=== PATIENT | female | born 1940 | race Caucasian/White ===

== ENCOUNTER → 2017-05-31 | Outpatient (CLI) | payer MEDICARE, BC ==
--- NOTE | 2017-05-31 14:33 | BD ---
EXAMINATION TYPE: MG DEXA axial skeleton. DATE OF EXAM: 05/31/2017 COMPARISON: NONE CLINICAL HISTORY: Postmenopausal screening. Height: 65 Weight: 195.4 FRAX RISK QUESTIONS: Alcohol (3 or more units per day): NO Family History (Parent hip fracture): NO Glucocorticoids (More than 3mos): NO (Ex: prednisone, prednisolone, methylprednisolone, dexamethasone, and hydrocortisone). History of Fracture in Adulthood: YES Secondary Osteoporosis: 1. Type 1 Diabetes: NO 2. Hyperthyroidism: NO 3. Menopause before 45: NO 4. Malnutrition: NO 5. Chronic liver disease: NO Rheumatoid Arthritis: NO Current Tobacco Use: YES RISK FACTORS HISTORY OF: Hip Fracture (Right/Left): NO Spine Fracture: NO History of Wrist Fracture: YES/ RIGHT Surgery to Spine/Hip(right/left)/Wrist (right/left): NO Family History of Osteoporosis: NO Active: YES Diet low in dairy products/other sources of calcium: YES Postmenopausal woman: AROUND AGE 48 Lost more than 2 inches in height since high school: NO Frequent falls: NO Poor Health: NO Adrenal Insufficiency: NO MEDICATIONS: DIABETIC MEDS, LIPITOR Thyroid Medications: LEVATHYROXINE How Lon YEARS Additional History: EXAM MEASUREMENTS: Bone mineral densitometry was performed using the [employer] System. Bone mineral density as measured about the Lumbar spine is: ----- L1-L4(G/cm2): 0.961 T Score Values are as follows: ----- L2: -4.0 ----- L3: -1.2 ----- L4: 0.3 ----- L1-L4: -1.8 Bone mineral density has: 24.1 % since study of: 08.07.2001 Bone mineral density about the R hip (g/cm2): 0.815 Bone mineral density about the L hip (g/cm2): 0.754 T Score values are as follows: -----R Neck: --1.6 -----L Neck: -2.0 -----R Total: -1.6 -----L Total: -1.4 Bone mineral density has: DECREASED -11.9 % since study of: 08.07.2001 IMPRESSION: Osteopenia (T Score between -2.5 and -1 as noted by T score values with regards to both hips. There is slightly increased risk of fracture and the patient may be considered for treatment. Re-Screen 2-5 years. NOTE: T-SCORE=SD OF THE YOUNG ADULT MEAN.
--- NOTE | 2017-06-03 12:10 | MM ---
Reason for exam: screening (asymptomatic). Last mammogram was performed 1 year and 4 months ago. History: Patient is postmenopausal and has history of other cancer at age 65. Benign left mammotome panel of the left breast, November 16, 2013. Excisional biopsy of the left breast, July 24, 2010. Physical Findings: A clinical breast exam by your physician is recommended on an annual basis and results should be correlated with mammographic findings. MG 3D Screening Mammo W/Cad Bilateral CC and MLO view(s) were taken. Prior study comparison: January 19, 2016, bilateral MG screening mammo w CAD. November 24, 2014, bilateral MG screening mammo w CAD. The breast tissue is heterogeneously dense. This may lower the sensitivity of mammography. Finding: There are typically benign calcifications in both breasts. There is no discrete abnormality. No significant changes in finding since January 19, 2016 and November 24, 2014. ASSESSMENT: Benign, BI-RAD 2 RECOMMENDATION: Routine screening mammogram of both breasts in 1 year.
== END | disposition home or self-care (01) ==
LOC: RADMAMWWP 09:04
PROVIDERS: ATTEND Internal Medicine Geriatric Medicine
DX: Z12.31 Encounter for screening mammogram for malignant neoplasm of breast (principal); M85.852 Other specified disorders of bone density and structure, left thigh; M85.851 Other specified disorders of bone density and structure, right thigh
CPT/HCPCS: 77080; 77063; G0202

== ENCOUNTER → 2018-09-01 | Outpatient (CLI) | payer MEDICARE, BC ==
--- NOTE | 2018-09-03 11:20 | MM ---
Reason for exam: screening (asymptomatic). Last mammogram was performed 1 year and 3 months ago. History: Patient is postmenopausal and has history of other cancer at age 65. Benign left mammotome panel of the left breast, November 16, 2013. Excisional biopsy of the left breast, July 24, 2010. Physical Findings: A clinical breast exam by your physician is recommended on an annual basis and results should be correlated with mammographic findings. MG 3D Screening Mammo W/Cad Bilateral CC and MLO view(s) were taken. Prior study comparison: May 31, 2017, bilateral MG 3d screening mammo w/cad. January 19, 2016, bilateral MG screening mammo w CAD. The breast tissue is heterogeneously dense. This may lower the sensitivity of mammography. Benign calcifications. No suspicious abnormality. Post biopsy change with biopsy marker on the left. No significant changes when compared with prior studies. ASSESSMENT: Benign, BI-RAD 2 RECOMMENDATION: Routine screening mammogram of both breasts in 1 year.
== END | disposition home or self-care (01) ==
LOC: RADMAMWWP 07:14
PROVIDERS: ATTEND Internal Medicine Geriatric Medicine
DX: Z12.31 Encounter for screening mammogram for malignant neoplasm of breast (principal)
CPT/HCPCS: 77063; 77067

== ENCOUNTER → 2020-08-23 | Outpatient (CLI) | payer MEDICARE, BC ==
--- NOTE | 2020-08-23 13:00 | ECHOF ---
Referral Reason:R60.9 EDEMA MEASUREMENTS -------- HEIGHT: 165.1 cm WEIGHT: 79.4 kg BP: IVSd: 1.3 cm (0.6 - 1.1) LVIDd: 2.8 cm (3.9 - 5.3) LVPWd: 1.1 cm (0.6 - 1.1) IVSs: 1.9 cm LVIDs: 2.0 cm LVPWs: 1.7 cm LAESV Index (A-L): 24.15 ml/m Ao Diam: 3.2 cm (2.0 - 3.7) AV Cusp: 1.9 cm (1.5 - 2.6) MV E Torsten: 0.63 m/s MV DecT: 197 ms MV A Torsten: 0.99 m/s MV E/A Ratio: 0.64 AV maxP.93 mmHg AV meanP.69 mmHg RAP: 5.00 mmHg RVSP: 29.16 mmHg FINDINGS -------- Sinus rhythm. This was a technically difficult study with suboptimal parasternal views. The left ventricular size is normal. There is mild concentric left ventricular hypertrophy. Overa ll left ventricular systolic function is normal with, an EF between 55 - 60 %. The diastolic fillin g pattern is normal for the age of the patient 11.07. The right ventricle is normal in size. Normal LA size by volume 22+/-6 ml/m2. The right atrial size is normal. Interatrial and interventricular septum intact. There is no evidence of aortic regurgitation. There is mild aortic stenosis present. Peak/mean gr adient across the Aortic Valve is 16.93mmHg / 9.69mmHg. No mitral regurgitation. Mild tricuspid regurgitation present. There is no evidence of pulmonary hypertension. The right v entricular systolic pressure, as measured by Doppler, is 29.16mmHg. There is no pulmonic regurgitation present. The aortic root size is normal. IVC Not well visulized. There is no pericardial effusion. CONCLUSIONS -------- 1. The left ventricular size is normal. 2. There is mild concentric left ventricular hypertrophy. 3. Overall left ventricular systolic function is normal with, an EF between 55 - 60 %. 4. There is mild aortic stenosis present. 5. Peak/mean gradient across the Aortic Valve is 16.93mmHg / 9.69mmHg. 6. Mild tricuspid regurgitation present. METAL SORTER: Sana Quezada RDCS
== END | disposition home or self-care (01) ==
LOC: RADECHMAIN 10:23
PROVIDERS: ATTEND Nurse Practitioner Family
DX: I51.7 Cardiomegaly (principal)
CPT/HCPCS: 93306

== ENCOUNTER → 2021-05-15 | Outpatient (CLI) | payer MEDICARE, BC ==
--- NOTE | 2021-05-16 13:39 | MM ---
Reason for exam: screening (asymptomatic). Last mammogram was performed 2 years and 8 months ago. History: Patient is postmenopausal and has history of other cancer at age 65. Benign left mammotome panel of the left breast, November 16, 2013. Excisional biopsy of the left breast, July 24, 2010. Physical Findings: A clinical breast exam by your physician is recommended on an annual basis and results should be correlated with mammographic findings. MG 3D Screening Mammo W/Cad Bilateral CC and MLO view(s) were taken. Prior study comparison: September 01, 2018, bilateral MG 3d screening mammo w/cad. May 31, 2017, bilateral MG 3d screening mammo w/cad. January 19, 2016, bilateral MG screening mammo w CAD. There are scattered fibroglandular densities. No significant changes when compared with prior studies. ASSESSMENT: Benign, BI-RAD 2 RECOMMENDATION: Routine screening mammogram of both breasts in 1 year.
== END | disposition home or self-care (01) ==
LOC: RADMAMWWP 09:57
PROVIDERS: ATTEND Internal Medicine Geriatric Medicine
DX: Z12.31 Encounter for screening mammogram for malignant neoplasm of breast (principal)
CPT/HCPCS: 77063; 77067

== ENCOUNTER 2024-08-20 17:33 | Observation (INO) | payer MEDICARE, BC ==
[2024-08-20 18:04] LABS: Basophils % (A) 0 %; Eosinophils # (A) 0.3 k/uL (0-0.7); Eosinophils % (A) 3 %; HGB 13.3 gm/dL (11.4-16.0); Hypochromasia Slight; Lymphocytes # (A) 0.6 k/uL (1.0-4.8); Lymphocytes % (A) 5 %; MCH 31.2 pg (25.0-35.0); MCHC 31.6 g/dL (31.0-37.0); MCV 98.8 fL (80.0-100.0); Monocytes # (A) 0.6 k/uL (0-1.0); Monocytes % (A) 5 %; Neutrophils # (A) 9.8 k/uL (1.3-7.7); Neutrophils % (A) 86 %; Platelet Count 314 k/uL (150-450); RBC 4.25 m/uL (3.80-5.40); WBC 11.3 k/uL (3.8-10.6)
[2024-08-20 18:16] LABS: ALT 16 U/L (4-34); AST 21 U/L (14-36); African American GFR (CKD) >90 (>60 ml/min/1.73 sqM); Albumin 4.2 g/dL (3.5-5.0); Alkaline Phosphatase 99 U/L (38-126); Amylase 54 U/L (30-110); Anion Gap 7 mmol/L; Blood Urea Nitrogen 26 mg/dL (7-17); Carbon Dioxide 28 mmol/L (22-30); Chloride 103 mmol/L (98-107); Glucose 160 mg/dL (74-99); Lipase 54 U/L (23-300); Non-African American GFR(CKD) 79 (>60 ml/min/1.73 sqM); Potassium 4.2 mmol/L (3.5-5.1); Sodium 138 mmol/L (137-145); Total Bilirubin 0.4 mg/dL (0.2-1.3); Total Protein 7.4 g/dL (6.3-8.2)
--- NOTE | 2024-08-20 19:09 | ED ---
General Adult HPI - General Chief complaint: Nausea/Vomiting/Diarrhea Stated complaint: Diarrhea Time Seen by Provider: 08/20/24 18:27 Source: patient Mode of arrival: EMS Limitations: no limitations - History of Present Illness Initial comments: Patient is an 84-year-old female presenting today for diarrhea. Coming from adult foster care with her daughter. Has had about 4 episodes of watery stools today. She denies any abdominal pain, nausea, vomiting, black or bloody stools. Denies any chest pain or shortness of breath, denies cough. No prior abdominal surgeries. - Related Data Home Medications Medication Instructions Recorded Confirmed Aspirin EC [Ecotrin Low Dose] 81 mg PO DAILY@0800 08/21/24 08/21/24 Benzonatate [Tessalon Perles] 100 mg PO BID PRN 08/21/24 08/21/24 Calcium Gluconate 50 mg PO DAILY@0800 08/21/24 08/21/24 Cyanocobalamin (Vitamin B-12) 1,000 mcg PO DAILY@0800 08/21/24 08/21/24 [Vitamin B-12] Empagliflozin [Jardiance] 10 mg PO DAILY@0800 08/21/24 08/21/24 Levothyroxine Sodium [Synthroid] 50 mcg PO DAILY@0800 08/21/24 08/21/24 Loperamide [Imodium] 2 - 4 mg PO QID PRN 08/21/24 08/21/24 Memantine [Namenda] 5 mg PO BID@0800,2000 08/21/24 08/21/24 Miconazole Nitrate [Desenex] 1 applic TOPICAL BID 08/21/24 08/21/24 QUEtiapine [SEROquel] 25 mg PO HS PRN 08/21/24 08/21/24 metFORMIN HCL 1,000 mg PO BID@0800,1700 08/21/24 08/21/24 Allergies Allergy/AdvReac Type Severity Reaction Status Date / Time No Known Allergies Allergy Verified 08/21/24 13:48 Review of Systems ROS Statement: Those systems with pertinent positive or pertinent negative responses have been documented in the HPI. ROS Other: All systems not noted in ROS Statement are negative. Past Medical History Past Medical History: Dementia, Thyroid Disorder Past Surgical History: Appendectomy, Cholecystectomy, Hysterectomy General Exam - General Exam Comments Initial Comments: PE: CONSTITUTIONAL: No apparent distress, well appearing SKIN: Warm, dry, no jaundice, hives or petechiae EYES: Pupils are equally round, extraocular movements intact without nystagmus, clear conjunctiva, non-icteric sclera HENT: Normocephalic, atraumatic, moist mucus membranes, oropharynx clear without exudates NECK: , Full range of motion, normal appearance PULMONARY: Clear to auscultation without wheezes, rhonchi, or rales, normal excursion, no accessory muscle use and no stridor CARDIOVASCULAR: Regular rate, rhythm, normal S1 and S2. No appreciated murmurs, rubs or gallops. Strong radial pulses with intact distal perfusion. No lower extremity edema GASTROINTESTINAL: Soft, hyperactive bowel sounds throughout, non-tender, non- distended, no palpable masses, no rebound or guarding. No hepatosplenomegaly GENITOURINARY: MUSCULOSKELETAL: Extremities have no gross deformity, no edema, redness, or swelling. No calf swelling NEUROLOGIC:_a/o x 3, GCS 15, normal mentation and speech. Moves all extremities x 4 without motor or sensory deficit PSYCHIATRIC:_normal mood and affect, thought process is clear and linear Limitations: no limitations Course Vital Signs 08/20/24 08/20/24 08/20/24 17:40 18:29 21:18 Temperature 97.5 F L Pulse Rate 87 60 88 Pulse Rate [ Left Supine Pulse Oximetery ] Respiratory 20 18 16 Rate Blood Pressure 120/80 122/64 140/92 Blood Pressure [Left Arm Supine] O2 Sat by Pulse 92 L 94 L 96 Oximetry 08/20/24 08/20/24 08/21/24 23:16 23:37 00:52 Temperature 97.7 F Pulse Rate 96 100 Pulse Rate [ 91 Left Supine Pulse Oximetery ] Respiratory 18 18 18 Rate Blood Pressure 125/89 136/72 Blood Pressure 125/101 [Left Arm Supine] O2 Sat by Pulse 95 97 97 Oximetry 08/21/24 08/21/24 08/21/24 05:42 08:43 13:34 Temperature 97.9 F 97.9 F Pulse Rate 79 85 80 Pulse Rate [ Left Supine Pulse Oximetery ] Respiratory 18 18 18 Rate Blood Pressure 146/79 129/83 131/65 Blood Pressure [Left Arm Supine] O2 Sat by Pulse 94 L 94 L 98 Oximetry Medical Decision Making - Medical Decision Making Was pt. sent in by a medical professional or institution (, [facility], MILL OPERATOR HELPER, urgent care, hospital, or halfway...) When possible be specific @ -No Did you speak to anyone other than the patient for history (EMS, parent, family, police, friend...)? What history was obtained from this source @I spoke with patient's daughter who assisted in providing history Did you review nursing and triage notes (agree or disagree)? Why? @ -I reviewed and agree with nursing and triage notes Were old charts reviewed (outside hosp., previous admission, EMS record, old EKG, old radiological studies, urgent care reports/EKG's, halfway records)? Report findings @ -Medical records reviewed-Last echo was in 2021 with an EF of 55 to 60% Differential Diagnosis (chest pain, altered mental status, abdominal pain women, abdominal pain men, vaginal bleeding, weakness, fever, dyspnea, syncope, headache, dizziness, GI bleed, back pain, seizure, CVA, palpatations, mental health, musculoskeletal)? @ -Differential diagnose edyta broad over top considerations include C. difficile colitis, diverticulitis, colitis, viral gastroenteritis this is not all inclusive list EKG interpreted by me (3pts min.). @ -As above X-rays interpreted by me (1pt min.). @ -None done CT interpreted by me (1pt min.). @ -None done U/S interpreted by me (1pt. min.). @ -None done What testing was considered but not performed or refused? (CT, X-rays, U/S, labs)? Why? @I did consider CT abdomen pelvis however patient's abdominal exam was overall benign without palpable masses or tenderness, patient denies abdominal pain is afebrile What meds were considered but not given or refused? Why? @ -None Did you discuss the management of the patient with other professionals (professionals i.e. [facility] Tse, MILL OPERATOR HELPER, lab, RT, psych nurse, social media project manager, skin piler, teacher, intelligence officer, registered nurse hh case manager)? Give summary @ -No Was smoking cessation discussed for >3mins.? @ -No Was critical care preformed (if so, how long)? @ -No Were there social determinants of health that impacted care today? How? (Homelessness, low income, unemployed, alcoholism, drug addiction, transportation, low edu. Level, literacy, decrease access to med. care, long term, rehab)? @ -No Was there de-escalation of care discussed even if they declined (Discuss DNR or withdrawal of care, Hospice)? @ -No What co-morbidities impacted this encounter? (DM, HTN, Smoking, COPD, CAD, Cancer, CVA, ARF, Chemo, Hep., AIDS, mental health diagnosis, sleep apnea, morbid obesity)? @ -None Was patient admitted / discharged? Hospital course, mention meds given and route, prescriptions, significant lab abnormalities, going to OR and other pertinent info. @ Admission- Patient is a pleasant 84-year-old female presenting today for 1 day of 4-5 episodes of watery stools. Well-appearing on my assessment, ox 92% on room air, otherwise vital signs within acceptable limits on arrival, however on my assessment patient's pulse ox is 98% on room air. Physical exam as above. Discussed with patient and daughter plan for basic labs, fluids, Imodium. If symptoms can be controlled anticipate discharge, if significant lab abnormalities will consider CT abdomen pelvis however I have low suspicion for acute intra-abdominal surgical process or infectious process. On reassessment patient had another loose stool, ordered Lomotil, will obtain C. difficile testing. If diarrhea cannot be controlled will admit. Labs show slight mild leukocytosis with a white blood cell 11.3, urine with trace leukocyte esterase, squamous cells 9, occasional bacteria and rare mucus, this is more likely a contaminated specimen. Patient continued to have diarrhea despite Lomotil and Imodium. Due to patient's age and residence at a adult foster care will plan for admission for chronic diarrhea. Patient agreeable plan of care. Patient does have erythema and discharge of the right eye. No vision changes. Will apply erythrimycin ointment. Patient with [facility], pt accepted for admission. Undiagnosed new problem with uncertain prognosis? @ -No Drug Therapy requiring intensive monitoring for toxicity (Heparin, Nitro, Insulin, Cardizem)? @ -No Were any procedures done? @ -No Diagnosis/symptom? @Diarrhea, bacterial conjunctivitis Acute, or Chronic, or Acute on Chronic? @Acute Uncomplicated (without systemic symptoms) or Complicated (systemic symptoms)? @Uncomplicated Side effects of treatment? @ -No Exacerbation, Progression, or Severe Exacerbation? @ -No Poses a threat to life or bodily function? How? (Chest pain, USA, CT, pneumonia, PE, COPD, DKA, ARF, appy, cholecystitis, CVA, Diverticulitis, Homicidal, Suicidal, threat to staff... and all critical care pts) @ -No - Lab Data Result diagrams: 08/21/24 06:13 08/21/24 06:13 Lab Results 08/20/24 08/20/24 08/20/24 Range/Units 17:46 17:53 17:53 WBC 11.3 H (3.8-10.6) k/uL RBC 4.25 (3.80-5.40) m/uL Hgb 13.3 (11.4-16.0) gm/dL Hct 42.0 (34.0-46.0) % MCV 98.8 (80.0-100.0) fL MCH 31.2 (25.0-35.0) pg MCHC 31.6 (31.0-37.0) g/dL RDW 14.0 (11.5-15.5) % Plt Count 314 (150-450) k/uL MPV 7.0 Neutrophils % 86 % Lymphocytes % 5 % Monocytes % 5 % Eosinophils % 3 % Basophils % 0 % Neutrophils # 9.8 H (1.3-7.7) k/uL Lymphocytes # 0.6 L (1.0-4.8) k/uL Monocytes # 0.6 (0-1.0) k/uL Eosinophils # 0.3 (0-0.7) k/uL Basophils # 0.0 (0-0.2) k/uL Hypochromasia Slight Sodium 138 (137-145) mmol/L Potassium 4.2 (3.5-5.1) mmol/L Chloride 103 (98-107) mmol/L Carbon Dioxide 28 (22-30) mmol/L Anion Gap 7 mmol/L BUN 26 H (7-17) mg/dL Creatinine 0.68 (0.52-1.04) mg/dL Est GFR (CKD-EPI)AfAm >90 (>60 ml/min/1.73 sqM) Est GFR (CKD-EPI)NonAf 79 (>60 ml/min/1.73 sqM) Glucose 160 H (74-99) mg/dL Calcium 9.0 (8.4-10.2) mg/dL Total Bilirubin 0.4 (0.2-1.3) mg/dL AST 21 (14-36) U/L ALT 16 (4-34) U/L Alkaline Phosphatase 99 (38-126) U/L Total Protein 7.4 (6.3-8.2) g/dL Albumin 4.2 (3.5-5.0) g/dL Amylase 54 (30-110) U/L Lipase 54 (23-300) U/L Urine Color Light Yellow Urine Appearance Cloudy H (Clear) Urine pH 5.0 (5.0-8.0) Ur Specific Kohler 1.016 (1.001-1.035) Urine Protein Negative (Negative) Urine Glucose (UA) Negative (Negative) Urine Ketones Negative (Negative) Urine Blood Negative (Negative) Urine Nitrite Negative (Negative) Urine Bilirubin Negative (Negative) Urine Urobilinogen <2.0 (<2.0) mg/dL Ur Leukocyte Esterase Trace H (Negative) Urine RBC 5 (0-5) /hpf Urine WBC 1 (0-5) /hpf Ur Squamous Epith Cells 9 H (0-4) /hpf Amorphous Sediment Occasional H (None) /hpf Urine Bacteria Occasional H (None) /hpf Urine Mucus Rare H (None) /hpf Influenza Type A (PCR) (Not Detectd) Influenza Type B (PCR) (Not Detectd) RSV (PCR) (Not Detectd) SARS-CoV-2 (PCR) (Not Detectd) 08/20/24 Range/Units 19:25 WBC (3.8-10.6) k/uL RBC (3.80-5.40) m/uL Hgb (11.4-16.0) gm/dL Hct (34.0-46.0) % MCV (80.0-100.0) fL MCH (25.0-35.0) pg MCHC (31.0-37.0) g/dL RDW (11.5-15.5) % Plt Count (150-450) k/uL MPV Neutrophils % % Lymphocytes % % Monocytes % % Eosinophils % % Basophils % % Neutrophils # (1.3-7.7) k/uL Lymphocytes # (1.0-4.8) k/uL Monocytes # (0-1.0) k/uL Eosinophils # (0-0.7) k/uL Basophils # (0-0.2) k/uL Hypochromasia Sodium (137-145) mmol/L Potassium (3.5-5.1) mmol/L Chloride (98-107) mmol/L Carbon Dioxide (22-30) mmol/L Anion Gap mmol/L BUN (7-17) mg/dL Creatinine (0.52-1.04) mg/dL Est GFR (CKD-EPI)AfAm (>60 ml/min/1.73 sqM) Est GFR (CKD-EPI)NonAf (>60 ml/min/1.73 sqM) Glucose (74-99) mg/dL Calcium (8.4-10.2) mg/dL Total Bilirubin (0.2-1.3) mg/dL AST (14-36) U/L ALT (4-34) U/L Alkaline Phosphatase (38-126) U/L Total Protein (6.3-8.2) g/dL Albumin (3.5-5.0) g/dL Amylase (30-110) U/L Lipase (23-300) U/L Urine Color Urine Appearance (Clear) Urine pH (5.0-8.0) Ur Specific Kohler (1.001-1.035) Urine Protein (Negative) Urine Glucose (UA) (Negative) Urine Ketones (Negative) Urine Blood (Negative) Urine Nitrite (Negative) Urine Bilirubin (Negative) Urine Urobilinogen (<2.0) mg/dL Ur Leukocyte Esterase (Negative) Urine RBC (0-5) /hpf Urine WBC (0-5) /hpf Ur Squamous Epith Cells (0-4) /hpf Amorphous Sediment (None) /hpf Urine Bacteria (None) /hpf Urine Mucus (None) /hpf Influenza Type A (PCR) Not Detected (Not Detectd) Influenza Type B (PCR) Not Detected (Not Detectd) RSV (PCR) Not Detected (Not Detectd) SARS-CoV-2 (PCR) Not Detected (Not Detectd) Disposition Clinical Impression: Diarrhea Disposition: ADMITTED IP TO THIS [facility] Condition: Stable
[2024-08-20] MEDS: LOPERAMIDE 2 MG CAP PO STA (19:22)
[2024-08-20] MEDS: SODIUM CHLORIDE 0.9% 1,000 ML IV STA (19:25)
[2024-08-20 21:05] LABS: Appearance,Urine Cloudy (Clear); Color,Urine Light Yellow; Protein,Urine Negative (Negative); Specific Gravity,Urine 1.016 (1.001-1.035)
[2024-08-20 21:06] LABS: Amorphous Sediment,Urine Occasional /hpf; Bacteria,Urine Occasional /hpf; Bilirubin,Urine Negative (Negative); Blood,Urine Negative (Negative); Glucose,Urine (UA) Negative (Negative); Ketones,Urine Negative (Negative); Leukocyte Esterase,Urine Trace (Negative); Mucus,Urine Rare /hpf; Nitrite,Urine Negative (Negative); RBC,Urine 5 /hpf (0-5); Squamous Epithelial Cell,Urine 9 /hpf (0-4); Urobilinogen,Urine <2.0 mg/dL (<2.0); WBC,Urine 1 /hpf (0-5)
[2024-08-20] MEDS: DIPHENOX-ATROP 2.5-0.025 MG 1 EACH TAB PO STA (21:54)
[2024-08-20] MEDS ORDERED: CALCIUM CARBONATE 500 MG CHEWABLE PO PRN (23:07)
[2024-08-20] MEDS ORDERED: NALOXONE 0.4 MG/ML 1 ML VIAL IV PRN (23:07)
[2024-08-20] MEDS ORDERED: ACETAMINOPHEN TAB 325 MG TAB PO PRN (23:07)
[2024-08-20] MEDS ORDERED: LOPERAMIDE 2 MG CAP PO PRN (23:07)
[2024-08-20] MEDS ORDERED: MAG HYDROX/AL HYDROX/SIMETH 30 ML CUP PO PRN (23:07)
[2024-08-20] MEDS ORDERED: BENZONATATE 100 MG CAP PO PRN (23:10)
[2024-08-21] MEDS: SODIUM CHLORIDE 0.9% 1,000 ML IV SCH (01:00)
[2024-08-21] MEDS: QUEtiapine 25 MG TAB PO PRN (01:06)
[2024-08-21] MEDS: ERYTHROMYCIN 5 MG/GM OPHTH OINT 3.5 GM TUBE RIGHT EYE SCH (05:21)
[2024-08-21 07:29] LABS: Basophils % (A) 0 %; Eosinophils # (A) 0.6 k/uL (0-0.7); Eosinophils % (A) 9 %; HCT 39.2 % (34.0-46.0); HGB 12.3 gm/dL (11.4-16.0); Lymphocytes # (A) 0.8 k/uL (1.0-4.8); Lymphocytes % (A) 13 %; MCHC 31.4 g/dL (31.0-37.0); MCV 98.7 fL (80.0-100.0); Mean Platelet Volume 7.6; Monocytes # (A) 0.4 k/uL (0-1.0); Monocytes % (A) 7 %; Neutrophils # (A) 4.5 k/uL (1.3-7.7); Neutrophils % (A) 70 %; Platelet Count 291 k/uL (150-450); RBC 3.97 m/uL (3.80-5.40); RDW 14.1 % (11.5-15.5); WBC 6.5 k/uL (3.8-10.6)
[2024-08-21 07:30] LABS: African American GFR (CKD) >90 (>60 ml/min/1.73 sqM); Anion Gap 5 mmol/L; Blood Urea Nitrogen 17 mg/dL (7-17); Calcium 8.6 mg/dL (8.4-10.2); Carbon Dioxide 30 mmol/L (22-30); Chloride 107 mmol/L (98-107); Glucose 102 mg/dL (74-99); Non-African American GFR(CKD) 84 (>60 ml/min/1.73 sqM); Potassium 3.8 mmol/L (3.5-5.1); Sodium 142 mmol/L (137-145)
[2024-08-21] MEDS: metFORMIN 500 MG TAB PO SCH (08:45)
[2024-08-21] MEDS: MEMANTINE 10 MG TAB PO SCH (08:46)
[2024-08-21] MEDS: ASPIRIN 81 MG PO SCH (08:46)
[2024-08-21] MEDS: LEVOTHYROXINE 50 MCG TAB PO SCH (08:47)
[2024-08-21 14:34] VITALS: BP 112/66; PULSE 72; RESP 16; TEMP 97.5
[2024-08-21] MEDS: QUEtiapine 25 MG TAB PO STA (15:24)
[2024-08-21] MEDS ORDERED: HALOPERIDOL LACTATE 5 MG/ML 1 ML VIAL IVP STA (15:49)
[2024-08-21] MEDS ORDERED: SODIUM CHLORIDE 0.9% 1,000 ML IV SCH (16:00)
[2024-08-21] MEDS: HALOPERIDOL LACTATE 5 MG/ML 1 ML VIAL IM STA (17:03)
== END 2024-08-21 17:00 ==
LOC: EC 17:33 → 6NMEDSUR 23:10
PROVIDERS: ADMIT Hospitalist; ATTEND Hospitalist
DX: R19.7 Diarrhea, unspecified (principal); F03.90 Unspecified dementia, unspecified severity, without behavioral disturbance, psychotic disturbance, mood disturbance, and anxiety; E07.9 Disorder of thyroid, unspecified; Z11.52 Encounter for screening for COVID-19; Z79.82 Long term (current) use of aspirin; Z79.84 Long term (current) use of oral hypoglycemic drugs; Z79.890 Hormone replacement therapy; Z79.899 Other long term (current) drug therapy
CPT/HCPCS: 96360; 99285; 36415; 80053; 80048; 82150; 83690; 85025 ×2; 81001; 87636; G0378 ×2

== ENCOUNTER 2024-11-06 13:39 | Inpatient (IN) | payer MEDICARE, BC ==
--- NOTE | 2024-11-06 14:05 | ED ---
General Adult HPI - General Chief complaint: Fall Stated complaint: Dizziness Time Seen by Provider: 11/06/24 13:41 Source: patient, EMS Mode of arrival: EMS Limitations: no limitations - History of Present Illness Initial comments: Dictation was produced using Flash Val[employer] dictation software. please excuse any grammatical, word or spelling errors. Chief Complaint: 84-year-old female from [facility] home presents with fall and syncope History of Present Illness: Patient is 84-year-old female she is a poor historian. She was brought into the emergency department EMS. Patient is a resident at the local [facility] home. She was getting ready to go to dinner when all of a sudden she had passed out. She fell to the ground. EMS was called. Patient states that she felt really weak and passed out. EMS noted that patient was in A-fib with RVR. Patient is no history of A-fib. She denies any pain complaints. EMS gave patient IV fluids and she was found to be slightly hypotensive. Patient denies any cardiac history. The ROS documented in this emergency department record has been reviewed and confirmed by me. Those systems with pertinent positive or negative responses have been documented in the HPI. All other systems are other negative and/or noncontributory. - Related Data Home Medications Medication Instructions Recorded Confirmed Aspirin EC [Ecotrin Low Dose] 81 mg PO DAILY@0800 08/21/24 08/21/24 Benzonatate [Tessalon Perles] 100 mg PO BID PRN 08/21/24 08/21/24 Calcium Gluconate 50 mg PO DAILY@0800 08/21/24 08/21/24 Cyanocobalamin (Vitamin B-12) 1,000 mcg PO DAILY@0800 08/21/24 08/21/24 [Vitamin B-12] Empagliflozin [Jardiance] 10 mg PO DAILY@0800 08/21/24 08/21/24 Levothyroxine Sodium [Synthroid] 50 mcg PO DAILY@0800 08/21/24 08/21/24 Loperamide [Imodium] 2 - 4 mg PO QID PRN 08/21/24 08/21/24 Memantine [Namenda] 5 mg PO BID@0800,199908/21/24 08/21/24 Miconazole Nitrate [Desenex] 1 applic TOPICAL BID 08/21/24 08/21/24 QUEtiapine [SEROquel] 25 mg PO HS PRN 08/21/24 08/21/24 metFORMIN HCL 1,000 mg PO BID@0800,1700 08/21/24 08/21/24 Allergies Allergy/AdvReac Type Severity Reaction Status Date / Time No Known Allergies Allergy Verified 11/06/24 13:54 Review of Systems ROS Statement: Those systems with pertinent positive or pertinent negative responses have been documented in the HPI. ROS Other: All systems not noted in ROS Statement are negative. Past Medical History Past Medical History: Dementia, Thyroid Disorder History of Any Multi-Drug Resistant Organisms: None Reported Past Surgical History: Appendectomy, Cholecystectomy, Hysterectomy Past Anesthesia/Blood Transfusion Reactions: No Reported Reaction Past Psychological History: No Psychological Hx Reported Smoking Status: Never smoker General Exam - General Exam Comments Initial Comments: PHYSICAL EXAM: General Impression: Alert and oriented x3, not in acute distress HEENT: Normocephalic atraumatic, extra-ocular movements intact, pupils equal and reactive to light bilaterally, mucous membranes moist. Cardiovascular: Irregularly irregular Chest: Able to complete full sentences, no retractions, no tachypnea Abdomen: abdomen soft, non-tender, non-distended, no organomegaly Musculoskeletal: Pulses present and equal in all extremities, no peripheral edema Motor: no focal deficits noted Neurological: CN II-XII grossly intact, no focal motor or sensory deficits noted Skin: Intact with no visualized rashes Psych: Normal affect and mood Limitations: no limitations Course Vital Signs 11/06/24 11/06/24 11/06/24 13:41 14:15 14:30 Temperature 98.2 F Pulse Rate 146 H 98 101 H Respiratory 20 20 20 Rate Blood Pressure 94/48 109/63 111/63 O2 Sat by Pulse 93 L 95 94 L Oximetry EKG Findings - EKG Comments: EKG Findings:: My EKG interpretation: Ventricular rate 105, A-fib with RVR, QRS 81, QTc 4 7. No TX prolongation, no QTC prolongation, no ST or T-wave changes noted. Medical Decision Making - Medical Decision Making Was pt. sent in by a medical professional or institution (, PA, OIL LEASE OPERATOR, urgent care, hospital, or jail...) When possible be specific @ -No Did you speak to anyone other than the patient for history (EMS, parent, family, police, friend...)? What history was obtained from this source @ -As above Did you review nursing and triage notes (agree or disagree)? Why? @ -I reviewed and agree with nursing and triage notes Were old charts reviewed (outside hosp., previous admission, EMS record, old EKG, old radiological studies, urgent care reports/EKG's, jail records)? Report findings @ -No old charts were reviewed Differential Diagnosis (chest pain, altered mental status, abdominal pain women, abdominal pain men, vaginal bleeding, musculoskeletal, weakness, fever, dyspnea, syncope, headache, dizziness, GI bleed, back pain, seizure, CVA, palpatations, mental health)? @ -Differential Syncope: Valvular disease, hypertrophic cardiomyopathy, pulmonary embolism, tamponade, tachycardia, bradycardia, [place], hypovolemia, hemorrhage, dissection, anemia, intracranial hemorrhage, seizure, hypoglycemia, carbon monoxide poisoning, this is not meant to be an all-inclusive list. EKG interpreted by me (3pts min.). @ -See above. Repeat EKG performed at 1349 shows sinus rhythm X-rays interpreted by me (1pt min.). @ -Chest x-ray shows pneumonia. Pelvis x-ray shows no acute processes CT interpreted by me (1pt min.). @ -None done U/S interpreted by me (1pt. min.). @ -None done What testing was considered but not performed or refused? (CT, X-rays, U/S, labs)? Why? @ -None What meds were considered but not given or refused? Why? @ -None Was smoking cessation discussed for >3mins.? @ -No Were there social determinants of health that impacted care today? How? (Homelessness, low income, unemployed, alcoholism, drug addiction, transportation, low edu. Level, literacy, decrease access to med. care, skilled nursing, rehab)? @ -detention resident Was there de-escalation of care discussed even if they declined (Discuss DNR or withdrawal of care, Hospice)? DNR status @ -No What co-morbidities impacted this encounter? (DM, HTN, Smoking, COPD, CAD, Cancer, CVA, ARF, Chemo, Hep., AIDS, mental health diagnosis, sleep apnea, morbid obesity)? @ -Dementia Was patient admitted / discharged? Hospital course, mention meds given and route, prescriptions, significant lab abnormalities, going to OR and other pertinent info. @ -84-year-old female after syncopal episode. Found to be in new onset A-fib with RVR. Vital signs upon arrival shows heart rate of 146 with soft blood pressure of 94/48 given IV fluids with improvement of vital signs. Repeat EKG shows that patient converted back to normal sinus rhythm. She started on heparin due to unclear duration of A-fib. Laboratory evaluation obtained. Lactic acidosis 4.9, troponin 0.036 with a mild leukocytosis of 13.7. Chest x- ray shows right pneumonia. Patient given pneumonia antibiotics. CT head pelvis x-ray shows no acute processes. Patient will be admitted. Case discussed hospitalist for admission. Cardiology consulted Did you discuss the management of the patient with other professionals (professionals i.e. , PA, OIL LEASE OPERATOR, lab, RT, psych nurse, social media content specialist, sled maker, teacher, ski patrol officer, porter sample case)? Give summary @ -See above Was critical care preformed (if so, how long)? @ -Yes, 33 minutes Undiagnosed new problem with uncertain prognosis? @ -No Drug Therapy requiring intensive monitoring for toxicity (Heparin, Nitro, Insulin, Cardizem)? @ -No Were any procedures done? @ -No Diagnosis/symptom? Acute, or Chronic, or Acute on Chronic? Uncomplicated (without systemic symptoms) or Complicated (systemic symptoms)? @ -Syncope, paroxysmal A-fib Side effects of treatment? @ -No Exacerbation, Progression, or Severe Exacerbation? @ -No Poses a threat to life or bodily function? How? (Chest pain, [place], AZ, pneumonia, PE, COPD, DKA, ARF, appy, cholecystitis, CVA, Diverticulitis, Homicidal, Suicidal, threat to staff... and all critical care pts) @ -yes - Lab Data Result diagrams: 11/06/24 14:24 11/06/24 14:24 Lab Results 11/06/24 11/06/24 11/06/24 Range/Units 14:24 14:24 14:24 WBC 13.7 H (3.8-10.6) k/uL RBC 4.27 (3.80-5.40) m/uL Hgb 12.7 (11.4-16.0) gm/dL Hct 40.7 (34.0-46.0) % MCV 95.2 (80.0-100.0) fL MCH 29.7 (25.0-35.0) pg MCHC 31.2 (31.0-37.0) g/dL RDW 13.9 (11.5-15.5) % Plt Count 280 (150-450) k/uL MPV 7.5 Neutrophils % 92 % Lymphocytes % 3 % Monocytes % 4 % Eosinophils % 0 % Basophils % 0 % Neutrophils # 12.6 H (1.3-7.7) k/uL Lymphocytes # 0.5 L (1.0-4.8) k/uL Monocytes # 0.5 (0-1.0) k/uL Eosinophils # 0.0 (0-0.7) k/uL Basophils # 0.0 (0-0.2) k/uL PT 12.1 (10.0-12.5) sec INR 1.1 (<1.2) APTT 26.9 (22.0-30.0) sec Sodium (137-145) mmol/L Potassium (3.5-5.1) mmol/L Chloride (98-107) mmol/L Carbon Dioxide (22-30) mmol/L Anion Gap mmol/L BUN (7-17) mg/dL Creatinine (0.52-1.04) mg/dL Est GFR (CKD-EPI)AfAm (>60 ml/min/1.73 sqM) Est GFR (CKD-EPI)NonAf (>60 ml/min/1.73 sqM) Glucose (74-99) mg/dL Plasma Lactic Acid Thomas (0.7-2.0) mmol/L Calcium (8.4-10.2) mg/dL Magnesium (1.6-2.3) mg/dL Total Bilirubin (0.2-1.3) mg/dL AST (14-36) U/L ALT (4-34) U/L Alkaline Phosphatase (38-126) U/L Troponin I (0.000-0.034) ng/mL NT-Pro-B Natriuret Pep pg/mL Total Protein (6.3-8.2) g/dL Albumin (3.5-5.0) g/dL Blood Type AB Positive Blood Type Recheck No Previous Record Bld Type Recheck Status CABO Indicated Antibody Screen NEGATIVE Spec Expiration Date 11/09/2024 - 4 03/07/25 03/07/25 03/07/25 Range/Units 14:24 14:24 14:24 WBC (3.8-10.6) k/uL RBC (3.80-5.40) m/uL Hgb (11.4-16.0) gm/dL Hct (34.0-46.0) % MCV (80.0-100.0) fL MCH (25.0-35.0) pg MCHC (31.0-37.0) g/dL RDW (11.5-15.5) % Plt Count (150-450) k/uL MPV Neutrophils % % Lymphocytes % % Monocytes % % Eosinophils % % Basophils % % Neutrophils # (1.3-7.7) k/uL Lymphocytes # (1.0-4.8) k/uL Monocytes # (0-1.0) k/uL Eosinophils # (0-0.7) k/uL Basophils # (0-0.2) k/uL PT (10.0-12.5) sec INR (<1.2) APTT (22.0-30.0) sec Sodium 135 L (137-145) mmol/L Potassium 3.4 L (3.5-5.1) mmol/L Chloride 89 L (98-107) mmol/L Carbon Dioxide 32 H (22-30) mmol/L Anion Gap 14 mmol/L BUN 35 H (7-17) mg/dL Creatinine 0.91 (0.52-1.04) mg/dL Est GFR (CKD-EPI)AfAm 66 (>60 ml/min/1.73 sqM) Est GFR (CKD-EPI)NonAf 57 (>60 ml/min/1.73 sqM) Glucose 170 H (74-99) mg/dL Plasma Lactic Acid Thomas 4.9 H* (0.7-2.0) mmol/L Calcium 8.4 (8.4-10.2) mg/dL Magnesium 1.6 (1.6-2.3) mg/dL Total Bilirubin 0.8 (0.2-1.3) mg/dL AST 23 (14-36) U/L ALT 17 (4-34) U/L Alkaline Phosphatase 87 (38-126) U/L Troponin I 0.036 H* (0.000-0.034) ng/mL NT-Pro-B Natriuret Pep 758 pg/mL Total Protein 6.8 (6.3-8.2) g/dL Albumin 3.7 (3.5-5.0) g/dL Blood Type Blood Type Recheck Bld Type Recheck Status Antibody Screen Spec Expiration Date Disposition Clinical Impression: Syncope, New onset a-fib Disposition: ADMITTED IP TO THIS HOSP Condition: Serious Referrals: Davin Tarango MD [Primary Care Provider] - 1-2 days Decision Time: 15:56
[2024-11-06] MEDS: SODIUM CHLORIDE 0.9% 1,000 ML IV STA (14:31)
[2024-11-06 14:39] LABS: Basophils % (A) 0 %; Eosinophils % (A) 0 %; HCT 40.7 % (34.0-46.0); HGB 12.7 gm/dL (11.4-16.0); Lymphocytes # (A) 0.5 k/uL (1.0-4.8); Lymphocytes % (A) 3 %; MCH 29.7 pg (25.0-35.0); MCHC 31.2 g/dL (31.0-37.0); MCV 95.2 fL (80.0-100.0); Mean Platelet Volume 7.5; Monocytes # (A) 0.5 k/uL (0-1.0); Monocytes % (A) 4 %; Neutrophils # (A) 12.6 k/uL (1.3-7.7); Neutrophils % (A) 92 %; Platelet Count 280 k/uL (150-450); RBC 4.27 m/uL (3.80-5.40); RDW 13.9 % (11.5-15.5); WBC 13.7 k/uL (3.8-10.6)
[2024-11-06 14:47] LABS: INR 1.1 (<1.2); Partial Thromboplastin Time 26.9 sec (22.0-30.0); Prothrombin Time 12.1 sec (10.0-12.5)
--- NOTE | 2024-11-06 15:02 | XR ---
EXAMINATION TYPE: XR chest 2V DATE OF EXAM: 11/06/2024 2:56 PM COMPARISON: Chest x-ray 2009. CLINICAL INDICATION: Female, 84 years old with history of fall, chest pain. TECHNIQUE: Frontal and lateral views of the chest are obtained. FINDINGS: There is consolidation with air bronchograms in the left lower lobe on 2 views. Right lung is clear. The cardiac silhouette size is mildly enlarged with atherosclerotic change in the aortic knob. The osseous structures are intact. IMPRESSION: There is new left lower lobe consolidation worrisome for pneumonia. [facility], , 11/06/2024 3:00 PM
--- NOTE | 2024-11-06 15:03 | XR ---
EXAMINATION TYPE: XR pelvis AP view DATE OF EXAM: 11/06/2024 2:56 PM COMPARISON: None. CLINICAL INDICATION: Female, 84 years old with history of fall, pain. TECHNIQUE: A single AP view of the pelvis is obtained. FINDINGS: There is no acute fracture/dislocation evident in the pelvis. Symmetric moderate axial yossi nt space loss of both hip joints. Sacroiliac joints are preserved. There is narrowing and sclerosis a t the pubic symphysis. There is left-sided pelvic arteriovascular calcification. IMPRESSION: There is no acute fracture or dislocation in the pelvis. [facility], , 11/06/2024 3:01 PM
[2024-11-06 15:05] LABS: ALT 17 U/L (4-34); AST 23 U/L (14-36); African American GFR (CKD) 66 (>60 ml/min/1.73 sqM); Albumin 3.7 g/dL (3.5-5.0); Alkaline Phosphatase 87 U/L (38-126); Anion Gap 14 mmol/L; Blood Urea Nitrogen 35 mg/dL (7-17); Calcium 8.4 mg/dL (8.4-10.2); Carbon Dioxide 32 mmol/L (22-30); Chloride 89 mmol/L (98-107); Glucose 170 mg/dL (74-99); Magnesium 1.6 mg/dL (1.6-2.3); Non-African American GFR(CKD) 57 (>60 ml/min/1.73 sqM); Sodium 135 mmol/L (137-145); Total Bilirubin 0.8 mg/dL (0.2-1.3); Total Protein 6.8 g/dL (6.3-8.2)
[2024-11-06 15:13] LABS: NT-Pro-B-Type Natriuretic Pept 758 pg/mL
--- NOTE | 2024-11-06 15:26 | CT ---
EXAMINATION TYPE: CT brain cspine wo con DATE OF EXAM: 11/06/2024 3:16 PM COMPARISON: None. CLINICAL INDICATION: Female, 84 years old with history of fall; Pt fell, pain TECHNIQUE: Brain: Multiple axial CT images of the brain were obtained without IV contrast. Cspine: Axial CT images from the skull base to the inferior aspect of T2 we obtained without intraven ous contrast. Coronal and sagittal reformatted images were also reviewed. . CT DLP: 1399.3 mGycm, Automated exposure control for dose reduction was used. FINDINGS: Brain: Extra-axial spaces: No abnormal extra-axial fluid collections. Ventricular system: Within normal limits Cerebral parenchyma: No acute intraparenchymal hemorrhage or mass effect. The dawn-white junction is well differentiated. Cerebellum: Unremarkable. Mass effect: No evidence of midline shift. Intracranial vasculature: Atherosclerotic calcifications of the intracranial vessels. Soft tissues: Normal. Calvarium/osseous structures: No depressed skull fracture. Paranasal sinuses and mastoid air cells: Mild scattered mucosal thickening and or secretions. Visualized orbits: Bilateral aphakia Cervical spine: Fracture: None. Osseous structures: Multilevel degenerative disc disease changes with endplate spurring and disc oste ophyte complex's. Degeneration severe C5-C6 adjoining endplates with and endplate sclerosis.. Vertebral alignment: Within normal limits. Spinal canal/Neural Foramina: No evidence of significant spinal canal narrowing. No evidence for sign ificant neural foraminal stenosis. Neck soft tissues: Prevertebral soft tissues are within normal limits. Other: The airway is patent. The lung apices are clear. Severe calcifications at the carotid bifurcat ions bilaterally. IMPRESSION: 1. No acute intracranial process. 2. Nonspecific white matter changes, likely secondary to chronic small vessel ischemic disease. 3. No evidence of cervical spine fracture. 4. Severe C5-C6 degenerative disc disease. [facility], , 11/06/2024 3:23 PM
[2024-11-06 15:29] LABS: Potassium 3.4 mmol/L (3.5-5.1)
[2024-11-06] MEDS ORDERED: ONDANSETRON 4 MG/2 ML VIAL IVP PRN (15:48)
[2024-11-06] MEDS ORDERED: NALOXONE 0.4 MG/ML 1 ML VIAL IV PRN (15:48)
[2024-11-06] MEDS: SODIUM CHLORIDE 0.9% 1,000 ML IV SCH (16:11)
[2024-11-06] MEDS: cefTRIAXone IN SWFI 1,000 MG/10 ML SYRINGE IVP STA (16:11)
[2024-11-06] MEDS: HEPARIN SODIUM 1,000 UN/ML (10ML VL) IV ONE (16:16)
[2024-11-06] MEDS: HEPARIN SOD,PORK IN 0.45% NACL 25,000 UNIT in 0.45% NACL 1 250ML.BAG IV SCH (16:18)
[2024-11-06] MEDS ORDERED: LOPERAMIDE 2 MG CAP PO PRN (20:53)
[2024-11-06] MEDS ORDERED: BENZONATATE 100 MG CAP PO PRN (20:53)
[2024-11-06 20:56] LABS: Influenza A Not Detected (Not Detectd); Influenza B Not Detected (Not Detectd); RSV Not Detected (Not Detectd)
[2024-11-06] MEDS ORDERED: IPRATROPIUM-ALBUTEROL 3 ML NEB INHALATION PRN (20:56)
[2024-11-06] MEDS: ACETAMINOPHEN TAB 325 MG TAB PO STA ×2 (21:41→21:47)
[2024-11-06] MEDS: MEMANTINE 10 MG TAB PO SCH (21:46)
[2024-11-06] MEDS: AZITHROMYCIN 500 MG in SODIUM CHLORIDE 0.9% 250 ML IVPB SCH (21:51)
--- NOTE | 2024-11-06 22:05 | HP ---
HISTORY AND PHYSICAL CHIEF COMPLAINT: Fall and dizziness. HISTORY OF PRESENT ILLNESS: This is an 84-year-old woman with a past medical history of multiple medical problems including dementia, was living in an [facility] home. The patient apparently went to the bathroom. The patient had a syncopal episode. The patient fell and the patient was noted to have atrial fibrillation with fast ventricular rate, which was converted spontaneously and the patient was taken to [facility], admitted for further evaluation and treatment. There is no history of any fever, rigors, or chills at this time. The patient had multiple abnormalities including elevated lactic acid also. The patient is not feeling well over the past several days. Troponin is elevated up to 0.036. The chest x-ray which I reviewed personally showed possibly left lower lobe pneumonia. There is no history of any fever, rigors, or chills at this time. Multilevel DJD was noted. PAST MEDICAL HISTORY: History of dementia, hypothyroidism. HOME MEDICATIONS: Reviewed include metolazone. Dose and rest of medications reviewed. ALLERGIES: None. FAMILY HISTORY: No history of heart disease or strokes in the family. SOCIAL HISTORY: No history of smoking or alcohol intake. REVIEW OF SYSTEMS: A 14-point review of systems is negative except as mentioned earlier. PHYSICAL EXAMINATION: VITAL SIGNS: Pulse 96, blood pressure 139/69, respirations 20. HEENT: Conjunctivae normal. NECK: No JVD. CARDIOVASCULAR: S1, S2. RESPIRATIONS: A few scattered rhonchi. ABDOMEN: Soft. NERVOUS SYSTEM: Nonfocal. SKIN: No ulcer, rash, bleeding. JOINTS: No active deforming arthropathy. LABORATORY DATA: Noted. ASSESSMENT: 1. Acute left lower lobe pneumonia with possible sepsis present on admission. 2. Fall and syncope. 3. Paroxysmal atrial fibrillation. 4. Hypokalemia. 5. Elevated plasma lactic acid. 6. Troponin elevated up to 0.036. 7. History of dementia. 8. Elevated WBC. RECOMMENDATIONS AND DISCUSSION: This is an 84-year-old woman, who presented with multiple complex medical issues. We will monitor the patient closely. I will initiate Rocephin and Zithromax and I would also recommend Cardiology and Pulmonology consultations. COVID testing with viral panel. Resume home medications once they are confirmed. Bronchodilators. Guarded prognosis because of multiple complex medical issues. Further recommendations to follow. See orders for further details. Prognosis guarded. Discussed at length with the family at the bedside. MMODL / IJN: [id number] /
[2024-11-06] MEDS: HEPARIN SODIUM 1,000 UN/ML (10ML VL) IV PRN (23:41)
[2024-11-06] MEDS: NYSTATIN 100,000 UNIT/GM POWD 15 GM TOPICAL SCH (23:44)
[2024-11-07] MEDS: LEVOTHYROXINE 88 MCG TAB PO SCH (06:20)
[2024-11-07 07:48] LABS: Basophils % (A) 0 %; Eosinophils # (A) 0.1 k/uL (0-0.7); Eosinophils % (A) 1 %; HCT 33.6 % (34.0-46.0); HGB 10.6 gm/dL (11.4-16.0); Hypochromasia Slight; Lymphocytes # (A) 0.8 k/uL (1.0-4.8); Lymphocytes % (A) 8 %; MCHC 31.4 g/dL (31.0-37.0); MCV 95.5 fL (80.0-100.0); Mean Platelet Volume 7.4; Monocytes # (A) 0.6 k/uL (0-1.0); Monocytes % (A) 5 %; Neutrophils # (A) 8.8 k/uL (1.3-7.7); Neutrophils % (A) 85 %; Platelet Count 234 k/uL (150-450); RBC 3.52 m/uL (3.80-5.40); RDW 13.7 % (11.5-15.5); WBC 10.4 k/uL (3.8-10.6)
[2024-11-07 08:04] LABS: ALT 14 U/L (4-34); AST 24 U/L (14-36); African American GFR (CKD) 89 (>60 ml/min/1.73 sqM); Alkaline Phosphatase 79 U/L (38-126); Anion Gap 1 mmol/L; Blood Urea Nitrogen 30 mg/dL (7-17); Calcium 7.7 mg/dL (8.4-10.2); Carbon Dioxide 37 mmol/L (22-30); Chloride 93 mmol/L (98-107); Glucose 121 mg/dL (74-99); Non-African American GFR(CKD) 77 (>60 ml/min/1.73 sqM); Sodium 131 mmol/L (137-145); Total Bilirubin 0.5 mg/dL (0.2-1.3); Total Protein 5.8 g/dL (6.3-8.2)
[2024-11-07] MEDS: ASPIRIN 81 MG PO SCH (08:15)
[2024-11-07] MEDS: metFORMIN 500 MG TAB PO SCH (08:15)
[2024-11-07] MEDS: CYANOCOBALAMIN 500 MCG TAB PO SCH (08:15)
[2024-11-07] MEDS: CALCIUM CARBONATE 500 MG CHEWABLE PO SCH (08:15)
[2024-11-07] MEDS: DAPAGLIFLOZIN PROPANEDIOL 5 MG TABLET PO SCH (08:15)
[2024-11-07] MEDS: FUROSEMIDE 40 MG TAB PO SCH (08:16)
[2024-11-07] MEDS: QUEtiapine 50 MG TAB PO SCH (08:16)
[2024-11-07] MEDS: POTASSIUM CHLORIDE ER 10 MEQ TAB.ER.PRT PO SCH (08:16)
[2024-11-07 08:27] LABS: Potassium 2.6 mmol/L (3.5-5.1)
[2024-11-07] MEDS: IPRATROPIUM-ALBUTEROL 3 ML NEB INHALATION SCH (08:47)
[2024-11-07] MEDS: POTASSIUM CHLORIDE ER 20 MEQ TAB.ER PO STA (09:22)
[2024-11-07] MEDS: POTASSIUM CHLORIDE 20 MEQ in WATER FOR INJECTION 1 100ML.BAG IVPB STA (09:23)
[2024-11-07] MEDS: MAGNESIUM SULFATE-D5W PMX 1 GM in DEXTROSE/WATER 1 100ML.BAG IVPB ONE (09:23)
[2024-11-07] MEDS ORDERED: Potassium Replacement Protocol 1 EACH MISC MISCELLANE PRN (14:31)
[2024-11-07] MEDS ORDERED: Magnesium Replacement Protocol 1 EACH MISC MISCELLANE PRN (14:31)
[2024-11-07] MEDS ORDERED: RX INFO: IV CONTRAST WAS GIVEN 1 EACH MISC MISCELLANE PRN (15:25)
--- NOTE | 2024-11-07 15:28 | P.CNPUL ---
History of Present Illness Consult date: 11/07/24 Requesting physician: Tequila Barclay Reason for consult: other Chief complaint: Syncope, atrial fibrillation. History of present illness: Pulmonary consult dated November 07, 2024. This is an 84-year-old female who is a very poor historian. She is seen in the emergency department, room 7. She is currently on 2 L of oxygen. She is receiving IV heparin. The patient is also on azithromycin and Rocephin, and apparently is thought to possibly have pneumonia involving the left lower lobe. She also was discovered to have atrial fibrillation with RVR. The patient is a very poor historian, has dementia, and was very confused. She could really not provide much history. According to the ER rola, the patient presented to the emergency department, via EMS, from [facility] skilled [facility]. She apparently had a fall and syncope. She apparently told the EMS personnel that she felt very weak, and passed out. EMS stated the patient was having atrial fibrillation with RVR. Currently, she denies any pain. Laboratory data includes a white count 10.4, hemoglobin 10.6, hematocrit 33.6, and a normal platelet count. Sodium 131, potassium 2.6, chloride 93, CO2 37, BUN 30, creatinine 0.72. Glucose was 121. Procalcitonin level was normal at 0.35. Calcium was 7.7. Viral screen was negative for influenza, RSV, and coronavirus. Head CT was negative for anything acute. There is no evidence of cervical spine fracture. She did have degenerative disc disease at C5 and C6. Pelvic chest x-ray was negative for fracture. Chest x-ray showed a possible left lower lobe consolidation. The patient is currently on azithromycin, and Rocephin. She is also receiving updrafts, as well as her usual medications. Review of Systems REVIEW OF SYSTEMS: CONSTITUTIONAL: Weakness. NEUROLOGIC: Syncope. HEENT: [ Negative.] CARDIAC: Atrial fibrillation. PULMONARY: Possible pneumonia. GI: [Negative.] : [Negative.] RHEUMATOLOGIC: [ Negative.] IMMUNOLOGIC: [ Negative.] ENDOCRINE: [Negative. ] DERMATOLOGIC: [Negative.] Past Medical History Past Medical History: Dementia, Thyroid Disorder History of Any Multi-Drug Resistant Organisms: None Reported Past Surgical History: Appendectomy, Cholecystectomy, Hysterectomy Past Anesthesia/Blood Transfusion Reactions: No Reported Reaction Past Psychological History: No Psychological Hx Reported Smoking Status: Never smoker Medications and Allergies Home Medications Medication Instructions Recorded Confirmed Type Aspirin EC [Ecotrin Low Dose] 81 mg PO DAILY@0800 08/21/24 11/06/24 History Benzonatate [Tessalon Perles] 100 mg PO BID PRN 08/21/24 11/06/24 History Calcium Gluconate 50 mg PO DAILY@0800 08/21/24 11/06/24 History Cyanocobalamin (Vitamin B-12) 1,000 mcg PO DAILY@0800 08/21/24 11/06/24 History [Vitamin B-12] Empagliflozin [Jardiance] 10 mg PO DAILY@0800 08/21/24 11/06/24 History Loperamide [Imodium] 2 - 4 mg PO QID PRN 08/21/24 11/06/24 History Miconazole Nitrate [Desenex] 1 applic TOPICAL BID 08/21/24 11/06/24 History QUEtiapine [SEROquel] 25 mg PO HS PRN 08/21/24 11/06/24 History metFORMIN HCL 1,000 mg PO BID@0800,1700 08/21/24 11/06/24 History Ammonium Lactate Lotion 1 applic TOPICAL BID 11/06/24 11/06/24 History [Lac-Hydrin 12% Lotion] Furosemide [Lasix] 40 mg PO DAILY 11/06/24 11/06/24 History Levothyroxine Sodium [Synthroid] 175 mcg PO DAILY 11/06/24 11/06/24 History Memantine [Namenda] 10 mg PO BID 11/06/24 11/06/24 History Potassium Chloride [Klor-Con M10] 10 meq PO DAILY 11/06/24 11/06/24 History QUEtiapine [SEROquel] 50 mg PO DAILY 11/06/24 11/06/24 History QUEtiapine [SEROquel] 100 mg PO HS 11/06/24 11/06/24 History metOLazone 2.5 mg PO TUTH 11/06/24 11/06/24 History Allergies Allergy/AdvReac Type Severity Reaction Status Date / Time No Known Allergies Allergy Verified 11/06/24 16:37 Physical Exam Osteopathic Statement: *. No significant issues noted on an osteopathic structural exam other than those noted in the History and Physical/Consult. Vitals: Vital Signs Temp Pulse Resp BP Pulse Ox 11/07/24 14:20 83 18 104/72 95 11/07/24 10:30 87 18 103/56 97 11/07/24 08:57 80 11/07/24 08:50 94 11/07/24 07:29 98.3 F 80 20 103/56 94 L 11/07/24 06:36 79 18 109/65 11/07/24 03:42 82 16 85/54 95 11/06/24 23:39 98.8 F 84 18 88/71 94 L 11/06/24 21:28 101.2 F H 11/06/24 20:00 99.4 F 96 20 113/69 96 11/06/24 17:30 100 22 101/60 96 Intake and Output 11/07/24 11/07/24 11/07/24 06:59 14:59 22:59 Intake Total 56.388 73.978 Balance 56.388 73.978 Intake: Intake, IV Titration 56.388 73.978 Amount Heparin Sod,Pork in 0.45% 56.388 73.978 NaCl 25,000 unit In 0.45 % NaCl 1 250ml.bag @ 12 UNITS/KG/HR 7.62 mls/hr IV .Q24H [facility] Rx#: [id number] No acute distress, very confused. Very poor historian. HEENT examination is grossly unremarkable. Mucous membranes are moist. No oral lesions. Neck supple. Full range of motion. No adenopathy thyromegaly or neck vein distention. Cardiovascular examination reveals an irregular rhythm and rate. S1-S2 normal. No S3 or S4. No discernible murmur noted. Lungs reveal clear breath sounds. Breath sounds are equal bilaterally. No adventitious lung sounds including wheezes rhonchi or crackles. Abdomen soft bowel sounds are heard. No masses or tenderness. Extremities are intact. No cyanosis clubbing or edema. Skin is without rash or lesion. Neurologic examination is brief but nonfocal. Results - Laboratory Findings CBC and BMP: 11/07/24 07:11 11/07/24 07:11 PT/INR, D-dimer PT 12.1 sec (10.0-12.5) 11/06/24 14:24 INR 1.1 (<1.2) 11/06/24 14:24 Abnormal lab findings: Abnormal Labs 11/06/24 11/06/24 11/06/24 14:24 14:24 14:24 WBC 13.7 H RBC Hgb Hct Neutrophils # 12.6 H Lymphocytes # 0.5 L APTT Sodium 135 L Potassium 3.4 L Chloride 89 L Carbon Dioxide 32 H BUN 35 H Glucose 170 H Plasma Lactic Acid Thomas 4.9 H* Calcium Troponin I Total Protein Albumin 11/06/24 11/06/24 11/07/24 14:24 17:31 06:50 WBC RBC Hgb Hct Neutrophils # Lymphocytes # APTT 32.1 H Sodium Potassium Chloride Carbon Dioxide BUN Glucose Plasma Lactic Acid Thomas 3.2 H* Calcium Troponin I 0.036 H* Total Protein Albumin 11/07/24 11/07/24 07:11 07:11 WBC RBC 3.52 L Hgb 10.6 L Hct 33.6 L Neutrophils # 8.8 H Lymphocytes # 0.8 L APTT Sodium 131 L Potassium 2.6 L* Chloride 93 L Carbon Dioxide 37 H BUN 30 H Glucose 121 H Plasma Lactic Acid Thomas Calcium 7.7 L Troponin I Total Protein 5.8 L Albumin 3.0 L - Diagnostic Findings Chest x-ray: image reviewed Assessment and Plan Assessment: Syncope, possibly related to atrial fibrillation and RVR. New onset atrial fibrillation. Possible pneumonia, left lower lobe. History of dementia. History of hypothyroidism. Lifelong non-smoker. Hypokalemia. Plan: Plan dated November 07, 2024. 84-year-old female seen in the emergency department, room 7. She apparently presented to the emergency department, with syncope. She apparently passed out. She resides at a [facility] home. The patient had a chest x-ray which suggested a possible consolidation in the left lung. Procalcitonin level, was normal. Will get a CT scan of the chest, to confirm. She is a very poor historian, and not able to give much history. Currently, she is on azithromycin and Rocephin. We will continue that for the time being. She is on IV heparin for her new onset atrial fibrillation/RVR. She tells us that she was a smoker, although on the ER member states that she was never a smoker. She also admits to shortness of breath, cough, and phlegm production, but I do not know if I can believe her history. She states she has not been feeling well since Saturday. Anyway, we will keep her on the antibiotics for now. Will get the CAT scan of the chest. Additional recommendations and suggestions are forthcoming. Prognosis is guarded. Dictation was produced using [employer]ation software. Please excuse any grammatical, word or spelling errors. Time with Patient: Greater than 30
[2024-11-07 15:46] LABS: Magnesium 1.9 mg/dL (1.6-2.3); Potassium 3.3 mmol/L (3.5-5.1)
--- NOTE | 2024-11-07 16:14 | P.CRDCN ---
History of Present Illness Consult date: 11/07/24 History of present illness: HISTORY OF PRESENTING ILLNESS: 84-year-old female with past medical history of dementia lives in a assisted care facility. She apparently has been feeling more weak for last couple of days. Apparently she was going to the bathroom where she had a syncopal episode and fell. She was also noticed to be in atrial fibrillation with RVR. This atrial fibrillation converted spontaneously to normal sinus rhythm. Her admission ECG shows sinus rhythm heart rate 91 bpm, first-degree AV block Repeat EKG showed atrial fibrillation heart rate 105 bpm, Admission Vitals: 109/63 heart rate 85 bpm Admission Labs: Hb 12, repeat 10.6, BUN 35, creatinine 0.9, initial lactate was elevated at 4.9, repeat at 2. Initial troponin was elevated at 0.03, NT-proBNP 750, Pro-Bishnu was not elevated. Viral panel was negative. Potassium was low at 3.4. Repeat potassium was 2.6 which was replaced. Imaging: Chest x-ray showed mild pulm congestion with possible left lower lobe infiltrate. REVIEW OF SYSTEMS: Could not be obtained because of patient's dementia. PHYSICAL EXAMINATION: Neck: Brisk carotid upstroke, no jugular venous distention. Lungs: Clear to auscultation. Heart: Regular rate and rhythm, systolic murmur audible Abdomen: Soft nontender, positive bowel sounds. Extremities: No edema, intact distal pulses. Neuro: Alert, oritented, no focal deficits. Detailed neuro exam was not performed. ASSESSMENT: # Paroxysmal atrial fibrillation # Syncope and fall # Left lower lobe pneumonia # Metabolic derangements with lactic acidosis and hypokalemia # Dementia # Debility and frailty PLAN: Syncope and fall could be related to A-fib RVR but could also be potentiated because of excessive diuretics that patient is getting. She is also getting hypokalemic with it. I will discontinue metolazone for good. Change Lasix to Bumex or more predictable clinical response. Obtain echocardiogram Obtain TSH NT-proBNP lipids HbA1c Obtain 7-day extended Holter monitor to go home with Obtain carotid Doppler Monitor QTc as patient is on azithromycin and Seroquel. repear ekg in AM Monitor blood pressure and electrolytes and renal function. Discontinue Lasix and metolazone. Start Bumex 1 mg p.o. daily. Add Aldactone 12.5 mg daily discontinue aspirin Start metoprolol titrate 25 minutes twice daily Give 1 dose of magnesium sulfate 2 g Discontinue IV heparin drip. Start Eliquis 2.5 mg twice daily because of weight age and frailty Faisal Castellanos MD, FAC, RPVI Thank you for allowing [facility] to participate in this patient's care. Feel free to reach out in case of any followup questions. Past Medical History Past Medical History: Dementia, Thyroid Disorder History of Any Multi-Drug Resistant Organisms: None Reported Past Surgical History: Appendectomy, Cholecystectomy, Hysterectomy Past Anesthesia/Blood Transfusion Reactions: No Reported Reaction Past Psychological History: No Psychological Hx Reported Smoking Status: Never smoker Medications and Allergies Home Medications Medication Instructions Recorded Confirmed Type Aspirin EC [Ecotrin Low Dose] 81 mg PO DAILY@0800 08/21/24 11/06/24 History Benzonatate [Tessalon Perles] 100 mg PO BID PRN 08/21/24 11/06/24 History Calcium Gluconate 50 mg PO DAILY@0800 08/21/24 11/06/24 History Cyanocobalamin (Vitamin B-12) 1,000 mcg PO DAILY@0800 08/21/24 11/06/24 History [Vitamin B-12] Empagliflozin [Jardiance] 10 mg PO DAILY@0800 08/21/24 11/06/24 History Loperamide [Imodium] 2 - 4 mg PO QID PRN 08/21/24 11/06/24 History Miconazole Nitrate [Desenex] 1 applic TOPICAL BID 08/21/24 11/06/24 History QUEtiapine [SEROquel] 25 mg PO HS PRN 08/21/24 11/06/24 History metFORMIN HCL 1,000 mg PO BID@0800,1700 08/21/24 11/06/24 History Ammonium Lactate Lotion 1 applic TOPICAL BID 11/06/24 11/06/24 History [Lac-Hydrin 12% Lotion] Furosemide [Lasix] 40 mg PO DAILY 11/06/24 11/06/24 History Levothyroxine Sodium [Synthroid] 175 mcg PO DAILY 11/06/24 11/06/24 History Memantine [Namenda] 10 mg PO BID 11/06/24 11/06/24 History Potassium Chloride [Klor-Con M10] 10 meq PO DAILY 11/06/24 11/06/24 History QUEtiapine [SEROquel] 50 mg PO DAILY 11/06/24 11/06/24 History QUEtiapine [SEROquel] 100 mg PO HS 11/06/24 11/06/24 History metOLazone 2.5 mg PO TUTH 11/06/24 11/06/24 History Allergies Allergy/AdvReac Type Severity Reaction Status Date / Time No Known Allergies Allergy Verified 11/06/24 16:37 Physical Exam Vitals: Vital Signs Temp Pulse Resp BP Pulse Ox 11/07/24 15:35 94 11/07/24 15:26 92 11/07/24 14:20 83 18 104/72 95 11/07/24 10:30 87 18 103/56 97 11/07/24 08:57 80 11/07/24 08:50 94 11/07/24 07:29 98.3 F 80 20 103/56 94 L 11/07/24 06:36 79 18 109/65 11/07/24 03:42 82 16 85/54 95 11/06/24 23:39 98.8 F 84 18 88/71 94 L 11/06/24 21:28 101.2 F H 11/06/24 20:00 99.4 F 96 20 113/69 96 11/06/24 17:30 100 22 101/60 96 Intake and Output 11/07/24 11/07/24 11/07/24 06:59 14:59 22:59 Intake Total 56.388 73.978 Balance 56.388 73.978 Intake: Intake, IV Titration 56.388 73.978 Amount Heparin Sod,Pork in 0.45% 56.388 73.978 NaCl 25,000 unit In 0.45 % NaCl 1 250ml.bag @ 12 UNITS/KG/HR 7.62 mls/hr IV .Q24H [facility] Rx#: [id number] Results 11/07/24 07:11 11/07/24 15:02 Cardiac Enzymes 11/07/24 Range/Units 07:11 AST 24 (14-36) U/L Coagulation 11/06/24 11/07/24 11/07/24 Range/Units 22:20 06:50 15:30 APTT 29.0 32.1 H 26.6 (22.0-30.0) sec CBC 11/07/24 Range/Units 07:11 WBC 10.4 (3.8-10.6) k/uL RBC 3.52 L (3.80-5.40) m/uL Hgb 10.6 L (11.4-16.0) gm/dL Hct 33.6 L (34.0-46.0) % Plt Count 234 (150-450) k/uL Comprehensive Metabolic Panel 11/07/24 11/07/24 Range/Units 07:11 15:02 Sodium 131 L (137-145) mmol/L Potassium 2.6 L* 3.3 L (3.5-5.1) mmol/L Chloride 93 L (98-107) mmol/L Carbon Dioxide 37 H (22-30) mmol/L BUN 30 H (7-17) mg/dL Creatinine 0.72 (0.52-1.04) mg/dL Glucose 121 H (74-99) mg/dL Calcium 7.7 L (8.4-10.2) mg/dL AST 24 (14-36) U/L ALT 14 (4-34) U/L Alkaline Phosphatase 79 (38-126) U/L Total Protein 5.8 L (6.3-8.2) g/dL Albumin 3.0 L (3.5-5.0) g/dL Current Medications Generic Name Dose Route Start Last Admin Trade Name Freq PRN Reason Stop Dose Admin Albuterol/Ipratropium 3 ml 11/07/24 08:00 11/07/24 15:23 Ipratropium-Albuterol 3 Ml Neb INHALATION 3 ml RT-TID [facility] Administration Albuterol/Ipratropium 3 ml 11/06/24 20:56 Ipratropium-Albuterol 3 Ml Neb INHALATION RT-TID PRN Shortness Of Breath Or Wheezing Apixaban 2.5 mg 11/07/24 21:00 Apixaban 5 Mg Tab PO BID [facility] Protocol Benzonatate 100 mg 11/06/24 20:53 Benzonatate 100 Mg Cap PO BID PRN Cough Bumetanide 1 mg 11/08/24 09:00 Bumetanide 1 Mg Tab PO DAILY [facility] Calcium Carbonate/Glycine 500 mg 11/07/24 08:00 11/07/24 08:15 Calcium Carbonate 500 Mg Chewable PO 500 mg DAILY@0800 [facility] Administration Cyanocobalamin 1,000 mcg 11/07/24 08:00 11/07/24 08:15 Cyanocobalamin 500 Mcg Tab PO 1,000 mcg DAILY@0800 [facility] Administration Dapagliflozin 5 mg 11/07/24 08:00 11/07/24 08:15 Dapagliflozin Propanediol 5 Mg Tablet PO 5 mg DAILY@0800 [facility] Administration Ceftriaxone Sodium 2 gm/ 50 mls @ 100 mls/hr 11/07/24 09:00 11/07/24 08:14 Sodium Chloride IVPB 100 mls/hr Q24HR [facility] Administration Protocol Azithromycin 500 mg/ Sodium 250 mls @ 250 mls/hr 11/06/24 21:30 11/06/24 21:51 Chloride IVPB 11/08/24 21:59 250 mls/hr HS [facility] Administration Protocol Potassium Chloride/Sodium Chloride 1,000 mls @ 50 mls/hr 11/07/24 16:00 Ns-Kcl 40 Meq/L Iv Solution IV .Q20H [facility] Magnesium Sulfate/Dextrose 1 100 mls @ 100 mls/hr 11/07/24 17:00 gm/ IV Solution IVPB 11/07/24 18:59 Q1H [facility] Levothyroxine Sodium 176 mcg 11/07/24 06:30 11/07/24 06:20 Levothyroxine 88 Mcg Tab PO 176 mcg DAILY@0630 [facility] Administration Loperamide HCl 2 - 4 mg 11/06/24 20:53 Loperamide 2 Mg Cap PO QID PRN loose stools Memantine 10 mg 11/06/24 21:15 11/07/24 08:16 Memantine 10 Mg Tab PO 10 mg BID [facility] Administration Metformin HCl 1,000 mg 11/07/24 08:00 11/07/24 08:15 Metformin 500 Mg Tab PO 1,000 mg BID@0800,1700 [facility] Administration Miscellaneous Information 1 each 11/07/24 14:31 Magnesium Replacement Protocol 1 Each Misc MISCELLANE DAILY PRN Per Protocol Protocol Miscellaneous Information 1 each 11/07/24 14:31 Potassium Replacement Protocol 1 Each Misc MISCELLANE DAILY PRN Per Protocol Protocol Miscellaneous Information 1 each 11/07/24 15:25 Rx Info: Iv Contrast Was Given 1 Each Misc MISCELLANE 11/09/24 15:26 DAILY PRN Per Protocol Naloxone HCl 0.2 mg 11/06/24 15:48 Naloxone 0.4 Mg/Ml 1 Ml Vial IV Q2M PRN Opioid Reversal Nystatin 1 applic 11/06/24 21:30 11/07/24 09:23 Nystatin 100,000 Unit/Gm Powd 15 Gm TOPICAL 1 applic BID [facility] Administration Ondansetron HCl 4 mg 11/06/24 15:48 Ondansetron 4 Mg/2 Ml Vial IVP Q8HR PRN Nausea And Vomiting Potassium Chloride 10 meq 11/07/24 09:00 11/07/24 08:16 Potassium Chloride Er 10 Meq Tab.Er.Prt PO 10 meq DAILY [facility] Administration Quetiapine Fumarate 25 mg 11/06/24 20:53 Quetiapine 25 Mg Tab PO HS PRN Agitation Quetiapine Fumarate 50 mg 11/07/24 09:00 11/07/24 08:16 Quetiapine 50 Mg Tab PO 50 mg DAILY [facility] Administration Intake and Output 11/07/24 11/07/24 11/07/24 06:59 14:59 22:59 Intake Total 56.388 73.978 Balance 56.388 73.978 Intake: Intake, IV Titration 56.388 73.978 Amount Heparin Sod,Pork in 0.45% 56.388 73.978 NaCl 25,000 unit In 0.45 % NaCl 1 250ml.bag @ 12 UNITS/KG/HR 7.62 mls/hr IV .Q24H [facility] Rx#: [id number] 11/07/24 07:11 11/07/24 15:02
[2024-11-07] MEDS: SPIRONOLACTONE 25 MG TAB PO SCH (16:38)
[2024-11-07] MEDS: MAGNESIUM SULFATE-D5W PMX 1 GM in DEXTROSE/WATER 1 100ML.BAG IVPB SCH (16:42)
--- NOTE | 2024-11-07 16:55 | CT ---
EXAMINATION TYPE: CT chest w con DATE OF EXAM: 11/07/2024 4:26 PM COMPARISON: None. CLINICAL INDICATION: Female, 84 years old with history of LLL consolidation; PHH, LLL consolidation. TECHNIQUE: Multiple axial images were obtained through the chest. Sagittal and coronal reformats were created for review. MIP was performed on a separate workstation. Contrast used:80ml mL of Isovue 300 with IV Contrast (None if empty) CT DLP: 449.6 mGycm, Automated exposure control for dose reduction was used. FINDINGS: LUNGS/ PLEURA: Left lower lobe patchy consolidative changes compatible with pneumonia. Right lower lo be atelectasis. No sizable pleural effusion. No pneumothorax. AIRWAY: Patent and unremarkable. HEART: Myocardium. Coronary artery desiccation. MEDIASTINUM: No gross evidence of adenopathy. VASCULATURE: No aortic aneurysm. MUSCULOSKELETAL: No acute osseous abnormalities. Multilevel thoracic spine degenerative changes. SOFT TISSUES/LYMPH NODES: Unremarkable. LOWER NECK: No significant findings. UPPER ABDOMEN: No significant acute findings. Pneumobilia. Simple appearing cysts in the left kidney. Nonspecific mild nodularity of the adrenal glands. IMPRESSION: Left lower lobe consolidative changes consistent with pneumonia. Recommend follow-up outpatient imagi ng after treatment course to document resolution. [facility], , 11/07/2024 4:53 PM
[2024-11-07] MEDS: 0.9% NACL WITH KCL 40 MEQ/L 1,000 ML IV SCH (16:56)
[2024-11-07 17:33] LABS: NT-Pro-B-Type Natriuretic Pept 2470 pg/mL
[2024-11-07 18:56] LABS: T4, Free (Free Thyroxine) 2.45 ng/dL (0.78-2.19)
--- NOTE | 2024-11-07 19:04 | US ---
EXAMINATION TYPE: US carotid duplex BILAT DATE OF EXAM: 11/07/2024 COMPARISON: NONE CLINICAL INDICATION: Female, 84 years old with history of carotid bruit b/l; Carotid burit, syncopal episode. dementia TECHNIQUE: Grayscale, color Doppler and spectral Doppler evaluation of the bilateral carotid systems and vertebral arteries. Indirect Doppler criteria was utilized. FINDINGS: EXAM MEASUREMENTS: RIGHT: Peak Systolic Velocity (PSV) cm/sec ----- Right CCA: 108 ----- Right ICA: 124 ----- Right ECA: 125 ICA/CCA ratio: 1.1 RIGHT: End Diastole cm/sec ----- Right CCA: 23 ----- Right ICA: 41 ----- Right ECA: 19.5 LEFT: Peak Systolic Velocity (PSV) cm/sec unable to visualize LEFT: End Diastole cm/sec unable to visualize VERTEBRALS (direction of flow): Right Vertebral: Antegrade Left Vertebral: unable to visualize Rhythm: Normal GROUP UNDERWRITER NOTES: very limited exam due to anatomy and patient movement. other imaging modalities may further characterize findings Color Doppler imaging shows patency with blood flow throughout the carotid artery. Spectral waveforms are within normal limits. IMPRESSION: Right: Mixed calcified atherosclerotic plaque without evidence of hemodynamically significant stenosi s within the limitations described above. Left: Mixed calcified atherosclerotic plaque without evidence of hemodynamically significant stenosis within the limitations described above. Criteria for Assigning % of Stenosis / Diameter reduction (Estimation based on the indirect measurements of the internal carotid artery velocities (ICA PSV). 1. Normal (no stenosis)=ICA PSV < 125 cm/s: ratio < 2.0: ICA EDV<40 cm/s. 2. Less than 50% stenosis=ICA PSV < 125 cm/s: ratio < 2.0: ICA EDV<40 cm/s. 3. 50 to 69% stenosis=ICA PSV of 125 to 230 cm/s: ration 2.0 ? 4.0: ICA EDV 40-100 cm/s. 4. Greater than 70% stenosis to near occlusion= ICA PSV > 230 cm/s: ratio > 4.0: ICA EDV > 100 cm/s. 5. Near occlusion= ICA PSV velocities may be low or undetectable: variable ratio and ICA EDV. 6. Total occlusion=unable to detect flow. [facility], , 11/07/2024 7:01 PM
[2024-11-07 19:07] LABS: Potassium 3.2 mmol/L (3.5-5.1)
[2024-11-07] MEDS: APIXABAN 2.5 MG TABLET PO SCH (21:36)
--- NOTE | 2024-11-08 04:44 | PN ---
PROGRESS NOTE DATE OF SERVICE: 11/07/2024 HISTORY OF PRESENT ILLNESS: This is an 84-year-old woman who was admitted with acute left lower lobe pneumonia, continues to be mildly confused. The patient also had paroxysmal atrial fibrillation. Potassium is severely depleted at 2.6, being corrected at this time. PAST MEDICAL HISTORY: Reviewed. REVIEW OF SYSTEMS: A 14-point review of systems is negative. CURRENT MEDICATIONS: Reviewed. PHYSICAL EXAMINATION: VITAL SIGNS: Pulse is 83, blood pressure 104/72, respirations 18. HEENT: Conjunctivae normal. CARDIOVASCULAR: S1, S2. RESPIRATIONS: Breath sounds diminished at the bases. A few scattered rhonchi. ABDOMEN: Soft. NERVOUS SYSTEM: Nonfocal. LABORATORY DATA: Noted. ASSESSMENT: 1. Acute left lower lobe pneumonia with possible sepsis, present on admission. 2. Severe hypokalemia. 3. Fall and syncope. 4. Paroxysmal atrial fibrillation. 5. Elevated plasma lactic acid. 6. Troponin elevated up to 0.036. 7. History of dementia. 8. Elevated WBC. RECOMMENDATIONS: Recommend to continue current management and continue symptomatic treatment, potassium supplementation. Otherwise, repeat labs. Continue with antibiotics. Closely follow with Pulmonary and Infectious Disease and Cardiology. Guarded prognosis. Further recommendations to follow. See orders for further details. MMODL / IJN: [id number] /
[2024-11-08 07:06] LABS: Chol/HDL Ratio 3.06 Ratio; LDL Cholesterol,Calculated 69.6 mg/dL (0.0-131.0)
--- NOTE | 2024-11-08 07:35 | P.CONS ---
History of Present Illness - Reason for Consult Consult date: 11/07/24 Pneumonia Requesting physician: Tequila Barclay - Chief Complaint Passed out x 1 day - History of Present Illness Patient is a 84-year-old female with a past medical history significant for dementia hypothyroidism presenting to the hospital from a local senior living after pending the patient had passed out after dinner she fell to the ground EMS was called and patient noted she was feeling very weak and passed out patient was noticed to be A-fib with RVR and subsequently has been brought into the hospital on arrival to the hospital the patient was initially febrile subsequently did spike a fever of 101.2 F patient was tachycardic but not hypotensive mildly hypoxic currently on 1 L nasal cannula oxygen patient did have white count of 13.7 with a left shift creatinine 0.91 potassium was low 3.4 liver enzymes are normal influenza RSV COVID testing was negative blood culture effusion currently pending patient did have a chest x-ray consultation report normal left lower lobe patient has been started on Rocephin and Zithromax infectious was consulted for further management of antibiotic therapy patient has been complaining of feeling weak diet has been complaining of mostly urinary frequency and lower abdominal discomfort nausea but no vomiting Review of Systems Positive point and negatives has been mentioned in the HPI, complete review of systems was performed and all other systems are negative Past Medical History Past Medical History: Dementia, Thyroid Disorder History of Any Multi-Drug Resistant Organisms: None Reported Past Surgical History: Appendectomy, Cholecystectomy, Hysterectomy Past Anesthesia/Blood Transfusion Reactions: No Reported Reaction Past Psychological History: No Psychological Hx Reported Smoking Status: Never smoker Medications and Allergies Home Medications Medication Instructions Recorded Confirmed Type Aspirin EC [Ecotrin Low Dose] 81 mg PO DAILY@79908/21/24 11/06/24 History Benzonatate [Tessalon Perles] 100 mg PO BID PRN 08/21/24 11/06/24 History Calcium Gluconate 50 mg PO DAILY@79908/21/24 11/06/24 History Cyanocobalamin (Vitamin B-12) 1,000 mcg PO DAILY@79908/21/24 11/06/24 History [Vitamin B-12] Empagliflozin [Jardiance] 10 mg PO DAILY@0800 08/21/24 11/06/24 History Loperamide [Imodium] 2 - 4 mg PO QID PRN 08/21/24 11/06/24 History Miconazole Nitrate [Desenex] 1 applic TOPICAL BID 08/21/24 11/06/24 History QUEtiapine [SEROquel] 25 mg PO HS PRN 08/21/24 11/06/24 History metFORMIN HCL 1,000 mg PO BID@0800,1700 08/21/24 11/06/24 History Ammonium Lactate Lotion 1 applic TOPICAL BID 11/06/24 11/06/24 History [Lac-Hydrin 12% Lotion] Furosemide [Lasix] 40 mg PO DAILY 11/06/24 11/06/24 History Levothyroxine Sodium [Synthroid] 175 mcg PO DAILY 11/06/24 11/06/24 History Memantine [Namenda] 10 mg PO BID 11/06/24 11/06/24 History Potassium Chloride [Klor-Con M10] 10 meq PO DAILY 11/06/24 11/06/24 History QUEtiapine [SEROquel] 50 mg PO DAILY 11/06/24 11/06/24 History QUEtiapine [SEROquel] 100 mg PO HS 11/06/24 11/06/24 History metOLazone 2.5 mg PO TUTH 11/06/24 11/06/24 History Allergies Allergy/AdvReac Type Severity Reaction Status Date / Time No Known Allergies Allergy Verified 11/06/24 16:37 Physical Exam Vitals: Vital Signs Temp Pulse Resp BP Pulse Ox 11/07/24 10:30 87 18 103/56 97 11/07/24 08:57 80 11/07/24 08:50 94 11/07/24 07:29 98.3 F 80 20 103/56 94 L 11/07/24 06:36 79 18 109/65 11/07/24 03:42 82 16 85/54 95 11/06/24 23:39 98.8 F 84 18 88/71 94 L 11/06/24 21:28 101.2 F H 11/06/24 20:00 99.4 F 96 20 113/69 96 11/06/24 17:30 100 22 101/60 96 11/06/24 14:30 101 H 20 111/63 94 L 11/06/24 14:15 98 20 109/63 95 11/06/24 13:41 98.2 F 146 H 20 94/48 93 L Intake and Output 11/06/24 11/07/24 11/07/24 22:59 06:59 14:59 Intake Total 56.388 73.978 Balance 56.388 73.978 Intake: Intake, IV Titration 56.388 73.978 Amount Heparin Sod,Pork in 0.45% 56.388 73.978 NaCl 25,000 unit In 0.45 % NaCl 1 250ml.bag @ 12 UNITS/KG/HR 7.62 mls/hr IV .Q24H [facility] Rx#: [id number] GENERAL DESCRIPTION: Elderly female lying in bed, no distress. No tachypnea or accessory muscle of respiration use. HEENT: Shows Pallor , no scleral icterus. Oral mucous membrane is dry. NECK: Trachea central, no thyromegaly. LUNGS: Unlabored breathing. Clear to auscultation anteriorly. No wheeze or crackle. HEART: S1, S2, regular rate and rhythm. No loud murmur ABDOMEN: Soft, mild suprapubic tenderness EXTREMITIES: No edema of feet. SKIN: No rash, no masses palpable. NEUROLOGICAL: The patient is awake, alert, oriented x3, mood and affect normal. Results CBC & Chem 7: 11/08/24 07:37 11/08/24 15:07 Labs: Abnormal Lab Results - Last 24 Hours (Table) 11/06/24 11/06/24 11/06/24 Range/Units 14:24 14:24 14:24 WBC 13.7 H (3.8-10.6) k/uL RBC (3.80-5.40) m/uL Hgb (11.4-16.0) gm/dL Hct (34.0-46.0) % Neutrophils # 12.6 H (1.3-7.7) k/uL Lymphocytes # 0.5 L (1.0-4.8) k/uL APTT (22.0-30.0) sec Sodium 135 L (137-145) mmol/L Potassium 3.4 L (3.5-5.1) mmol/L Chloride 89 L (98-107) mmol/L Carbon Dioxide 32 H (22-30) mmol/L BUN 35 H (7-17) mg/dL Glucose 170 H (74-99) mg/dL Plasma Lactic Acid Thomas 4.9 H* (0.7-2.0) mmol/L Calcium (8.4-10.2) mg/dL Troponin I (0.000-0.034) ng/mL Total Protein (6.3-8.2) g/dL Albumin (3.5-5.0) g/dL 11/06/24 11/06/24 11/07/24 Range/Units 14:24 17:31 06:50 WBC (3.8-10.6) k/uL RBC (3.80-5.40) m/uL Hgb (11.4-16.0) gm/dL Hct (34.0-46.0) % Neutrophils # (1.3-7.7) k/uL Lymphocytes # (1.0-4.8) k/uL APTT 32.1 H (22.0-30.0) sec Sodium (137-145) mmol/L Potassium (3.5-5.1) mmol/L Chloride (98-107) mmol/L Carbon Dioxide (22-30) mmol/L BUN (7-17) mg/dL Glucose (74-99) mg/dL Plasma Lactic Acid Thomas 3.2 H* (0.7-2.0) mmol/L Calcium (8.4-10.2) mg/dL Troponin I 0.036 H* (0.000-0.034) ng/mL Total Protein (6.3-8.2) g/dL Albumin (3.5-5.0) g/dL 11/07/24 11/07/24 Range/Units 07:11 07:11 WBC (3.8-10.6) k/uL RBC 3.52 L (3.80-5.40) m/uL Hgb 10.6 L (11.4-16.0) gm/dL Hct 33.6 L (34.0-46.0) % Neutrophils # 8.8 H (1.3-7.7) k/uL Lymphocytes # 0.8 L (1.0-4.8) k/uL APTT (22.0-30.0) sec Sodium 131 L (137-145) mmol/L Potassium 2.6 L* (3.5-5.1) mmol/L Chloride 93 L (98-107) mmol/L Carbon Dioxide 37 H (22-30) mmol/L BUN 30 H (7-17) mg/dL Glucose 121 H (74-99) mg/dL Plasma Lactic Acid Thomas (0.7-2.0) mmol/L Calcium 7.7 L (8.4-10.2) mg/dL Troponin I (0.000-0.034) ng/mL Total Protein 5.8 L (6.3-8.2) g/dL Albumin 3.0 L (3.5-5.0) g/dL Assessment and Plan (1) Sepsis Current Visit: Yes Status: Acute Code(s): A41.9 - SEPSIS, UNSPECIFIED ORGANISM SNOMED Code(s): 02827253 (2) Pneumonia Current Visit: Yes Status: Acute Code(s): J18.9 - PNEUMONIA, UNSPECIFIED ORGANISM SNOMED Code(s): 228879441 Plan: 1patient presented to hospital with fever did have tachycardia elevated white count meeting currently for SIRS/sepsis source is likely left lower lobe pneumonia patient also have significant urinary symptoms, and underlying illness was not done excluded 2-we will check UA and a culture, check sputum for Gram stain culture and urine for Legionella antigen 3-patient is appropriately covered with Rocephin and Zithromax, to continue while waiting for the workup to be completed We will follow on clinical condition and cultures to further adjust medication if needed Thank you for this consultation we will follow the patient along with you Dictation was produced using [employer] dictation software. please excuse any grammatical, word or spelling errors. Time with Patient: Greater than 30
[2024-11-08 08:13] LABS: Basophils % (A) 0 %; Eosinophils # (A) 0.1 k/uL (0-0.7); Eosinophils % (A) 2 %; HCT 35.9 % (34.0-46.0); HGB 10.8 gm/dL (11.4-16.0); Hypochromasia Slight; Lymphocytes # (A) 0.6 k/uL (1.0-4.8); Lymphocytes % (A) 9 %; MCH 28.7 pg (25.0-35.0); MCV 95.8 fL (80.0-100.0); Mean Platelet Volume 7.9; Monocytes # (A) 0.4 k/uL (0-1.0); Monocytes % (A) 5 %; Neutrophils # (A) 5.9 k/uL (1.3-7.7); Neutrophils % (A) 83 %; Platelet Count 252 k/uL (150-450); RBC 3.75 m/uL (3.80-5.40); RDW 14.1 % (11.5-15.5); WBC 7.1 k/uL (3.8-10.6)
[2024-11-08 08:24] LABS: African American GFR (CKD) >90 (>60 ml/min/1.73 sqM); Anion Gap 4 mmol/L; Blood Urea Nitrogen 18 mg/dL (7-17); Carbon Dioxide 38 mmol/L (22-30); Chloride 96 mmol/L (98-107); Glucose 138 mg/dL (74-99); Magnesium 2.1 mg/dL (1.6-2.3); Non-African American GFR(CKD) 81 (>60 ml/min/1.73 sqM); Potassium 3.1 mmol/L (3.5-5.1); Sodium 138 mmol/L (137-145)
[2024-11-08] MEDS: BUMETANIDE 1 MG TAB PO SCH (09:23)
--- NOTE | 2024-11-08 13:10 | P.PN ---
Subjective Progress Note Date: 11/08/24 Principal diagnosis: Syncope. Pulmonary consult dated November 07, 2024. This is an 84-year-old female who is a very poor historian. She is seen in the emergency department, room 7. She is currently on 2 L of oxygen. She is receiving IV heparin. The patient is also on azithromycin and Rocephin, and apparently is thought to possibly have pneumonia involving the left lower lobe. She also was discovered to have atrial fibrillation with RVR. The patient is a very poor historian, has dementia, and was very confused. She could really not provide much history. According to the ER rola, the patient presented to the emergency department, via EMS, from [facility]. She apparently had a fall and syncope. She apparently told the EMS personnel that she felt very w eak, and passed out. EMS stated the patient was having atrial fibrillation with RVR. Currently, she denies any pain. Laboratory data includes a white count 10.4, hemoglobin 10.6, hematocrit 33.6, and a normal platelet count. Sodium 131, potassium 2.6, chloride 93, CO2 37, BUN 30, creatinine 0.72. Glucose was 121. Procalcitonin level was normal at 0.35. Calcium was 7.7. Viral screen was negative for influenza, RSV, and coronavirus. Head CT was negative for anything acute. There is no evidence of cervical spine fracture. She did have degenerative disc disease at C5 and C6. Pelvic chest x-ray was negative for fracture. Chest x-ray showed a possible left lower lobe consolidation. The patient is currently on azithromycin, and Rocephin. She is also receiving updrafts, as well as her usual medications. Progress note dated November 08, 2024. 84-year-old female seen yesterday in consultation. She was seen in the emergency department. The patient is demented, and not able to give any significant history. She is currently on 2 L. No IV fluids. She is currently in atrial fibrillation, and she has a murmur of aortic stenosis. White count 7.1, hemoglobin 10.8, hematocrit 35.9, and platelet count 252,000. Sodium 138, potassium 3.1, chlorides 96, CO2 38, BUN 18, and creatinine 0.65. Glucose is 138. Calcium is 8. Magnesium is 2.1. Chest CT, done yesterday, showed some co nsolidative changes, in the left lower lobe, consistent with pneumonia. The patient is currently on azithromycin, and Rocephin. Objective - Vital Signs Vital signs: Vital Signs Temp 98.1 F 11/08/24 11:56 Pulse 64 11/08/24 11:56 Resp 14 11/08/24 11:56 BP 127/58 11/08/24 09:19 Pulse Ox 91 L 11/08/24 11:56 FiO2 Intake & Output 11/07/24 11/08/24 11/08/24 17:59 06:59 18:59 Intake Total 240 Output Total 1100 Balance -860 Weight Intake: Intake, IV Titration Amount Heparin Sod,Pork in 0.45% NaCl 25,000 unit In 0.45 % NaCl 1 250ml.bag @ 12 UNITS/KG/HR 7.62 mls/hr IV .Q24H [facility] Rx#: [id number] Oral 240 Output: Urine 1100 Other: Voiding Method - Exam No acute distress, very confused. Very poor historian. Patient is currently on 2 L of oxygen. HEENT examination is grossly unremarkable. Mucous membranes are moist. No oral lesions. Neck supple. Full range of motion. No adenopathy thyromegaly or neck vein distention. Cardiovascular examination reveals an irregular rhythm and rate. S1-S2 normal. No S3 or S4. Soft systolic murmur consistent with aortic stenosis is noted. Lungs reveal clear breath sounds. Breath sounds are equal bilaterally. No adventitious lung sounds including wheezes rhonchi or crackles. Abdomen soft bowel sounds are heard. No masses or tenderness. Extremities are intact. No cyanosis clubbing or edema. Skin is without rash or lesion. Neurologic examination is brief but nonfocal. - Labs CBC & Chem 7: 11/08/24 07:37 11/08/24 07:37 Labs: Abnormal Lab Results - Last 24 Hours (Table) 11/07/24 11/07/24 11/07/24 Range/Units 07:11 07:11 15:02 RBC (3.80-5.40) m/uL Hgb (11.4-16.0) gm/dL MCHC (31.0-37.0) g/dL Lymphocytes # (1.0-4.8) k/uL Potassium 3.3 L (3.5-5.1) mmol/L Chloride (98-107) mmol/L Carbon Dioxide (22-30) mmol/L BUN (7-17) mg/dL Glucose (74-99) mg/dL Hemoglobin A1c 7.4 H (<=6.0) % Calcium (8.4-10.2) mg/dL TSH 0.327 L (0.465-4.680) mIU/L Free T4 2.45 H (0.78-2.19) ng/dL 11/07/24 11/08/24 11/08/24 Range/Units 18:29 07:37 07:37 RBC 3.75 L (3.80-5.40) m/uL Hgb 10.8 L (11.4-16.0) gm/dL MCHC 30.0 L (31.0-37.0) g/dL Lymphocytes # 0.6 L (1.0-4.8) k/uL Potassium 3.2 L 3.1 L (3.5-5.1) mmol/L Chloride 95 L 96 L (98-107) mmol/L Carbon Dioxide 35 H 38 H (22-30) mmol/L BUN 18 H (7-17) mg/dL Glucose 138 H (74-99) mg/dL Hemoglobin A1c (<=6.0) % Calcium 8.0 L (8.4-10.2) mg/dL TSH (0.465-4.680) mIU/L Free T4 (0.78-2.19) ng/dL Microbiology - Last 24 Hours (Table) 11/06/24 20:25 Blood Culture - Preliminary Blood Assessment and Plan Assessment: Syncope, possibly related to atrial fibrillation and RVR. New onset atrial fibrillation. Probable aortic stenosis. Possible pneumonia, left lower lobe. History of dementia. History of hypothyroidism. Lifelong non-smoker. Hypokalemia. Plan: Plan dated November 07, 2024. 84-year-old female seen in the emergency department, room 7. She apparently presented to the emergency department, with syncope. She apparently passed out. She resides at a [facility] home. The patient had a chest x-ray which suggested a possible consolidation in the left lung. Procalcitonin level, was normal. Will get a CT scan of the chest, to confirm. She is a very poor historian, and not able to give much history. Currently, she is on azithromycin and Rocephin. We will continue that for the time being. She is on IV heparin for her new onset atrial fibrillation/RVR. She tells us that she was a smoker, although on the ER member states that she was never a smoker. She also admits to shortness of breath, cough, and phlegm production, but I do not know if I can believe her history. She states she has not been feeling well since Saturday. Anyway, we will keep her on the antibiotics for now. Will get the CAT scan of the chest. Additional recommendations and suggestions are forthcoming. Prognosis is guarded. Dictation was produced using [employer] software. Please excuse any grammatical, word or spelling errors. Plan dated November 08, 2024. 84-year-old female initially seen in the emergency department. The patient is a very poor historian. She came in with possible syncope. Chest x-ray and CT scan suggested possibility of consolidative changes, in the left lower lobe. Procalcitonin level is normal. She continues on Rocephin and azithromycin. She is currently on 2 L of oxygen. Labs, x-rays, and medications are reviewed. We will continue to follow the patient, make recommendations. In addition, the patient is currently in atrial fibrillation. Ventricular response rate is controlled. We will continue to follow make recommendations along the way. Prognosis is guarded. Dictation was produced using [employer] software. Please excuse any grammatical, word or spelling errors. Time with Patient: Less than 30
--- NOTE | 2024-11-08 16:09 | P.PN ---
Subjective Progress Note Date: 11/08/24 Principal diagnosis: Reason for follow-up is pneumonia Patient is a 84-year-old female with a past medical history significant for dementia hypothyroidism presenting [facility] the [facility] after pending the patient had passed out after dinner she did have a chest x-ray concerning for left lower lobe pneumonia. On today's evaluation that is 11/08/2024, Patient did have resolution of her fever and is afebrile patient is currently on room air and denies having any shortness of breath, the patient denies any chest pain or any worsening cough, the patient denies any nausea vomiting did not have any abdominal pain and no diarrhea. Patient white count 7.1, creatinine 0.65 blood cultures are pending Objective - Vital Signs Vital signs: Vital Signs Temp 98.1 F 11/08/24 11:56 Pulse 84 11/08/24 16:00 Resp 14 11/08/24 11:56 BP 127/58 11/08/24 09:19 Pulse Ox 91 L 11/08/24 11:56 FiO2 Intake & Output 11/07/24 11/08/24 11/08/24 17:59 06:59 18:59 Intake Total 240 Output Total 1100 Balance -860 Weight Intake: Intake, IV Titration Amount Heparin Sod,Pork in 0.45% NaCl 25,000 unit In 0.45 % NaCl 1 250ml.bag @ 12 UNITS/KG/HR 7.62 mls/hr IV .Q24H [facility] Rx#: [id number] Oral 240 Output: Urine 1100 Other: Voiding Method Diaper External Catheter - Exam GENERAL DESCRIPTION: An elderly female lying in bed in no distress RESPIRATORY SYSTEM: Unlabored breathing , decreased breath sounds at bases HEART: S1 S2 regular rate and rhythm , ABDOMEN: Soft , no tenderness EXTREMITIES: No edema feet - Labs CBC & Chem 7: 11/08/24 07:37 11/08/24 15:07 Labs: Abnormal Lab Results - Last 24 Hours (Table) 11/07/24 11/07/24 11/07/24 Range/Units 07:11 07:11 15:02 RBC (3.80-5.40) m/uL Hgb (11.4-16.0) gm/dL MCHC (31.0-37.0) g/dL Lymphocytes # (1.0-4.8) k/uL Potassium 3.3 L (3.5-5.1) mmol/L Chloride (98-107) mmol/L Carbon Dioxide (22-30) mmol/L BUN (7-17) mg/dL Glucose (74-99) mg/dL Hemoglobin A1c 7.4 H (<=6.0) % Calcium (8.4-10.2) mg/dL TSH 0.327 L (0.465-4.680) mIU/L Free T4 2.45 H (0.78-2.19) ng/dL 11/07/24 11/08/24 11/08/24 Range/Units 18:29 07:37 07:37 RBC 3.75 L (3.80-5.40) m/uL Hgb 10.8 L (11.4-16.0) gm/dL MCHC 30.0 L (31.0-37.0) g/dL Lymphocytes # 0.6 L (1.0-4.8) k/uL Potassium 3.2 L 3.1 L (3.5-5.1) mmol/L Chloride 95 L 96 L (98-107) mmol/L Carbon Dioxide 35 H 38 H (22-30) mmol/L BUN 18 H (7-17) mg/dL Glucose 138 H (74-99) mg/dL Hemoglobin A1c (<=6.0) % Calcium 8.0 L (8.4-10.2) mg/dL TSH (0.465-4.680) mIU/L Free T4 (0.78-2.19) ng/dL 11/08/24 Range/Units 15:07 RBC (3.80-5.40) m/uL Hgb (11.4-16.0) gm/dL MCHC (31.0-37.0) g/dL Lymphocytes # (1.0-4.8) k/uL Potassium 3.0 L (3.5-5.1) mmol/L Chloride 94 L (98-107) mmol/L Carbon Dioxide 36 H (22-30) mmol/L BUN (7-17) mg/dL Glucose (74-99) mg/dL Hemoglobin A1c (<=6.0) % Calcium (8.4-10.2) mg/dL TSH (0.465-4.680) mIU/L Free T4 (0.78-2.19) ng/dL Microbiology - Last 24 Hours (Table) 11/06/24 20:25 Blood Culture - Preliminary Blood Assessment and Plan (1) Sepsis Current Visit: Yes Status: Acute Code(s): A41.9 - SEPSIS, UNSPECIFIED ORGANISM SNOMED Code(s): 62568941 (2) Pneumonia Current Visit: Yes Status: Acute Code(s): J18.9 - PNEUMONIA, UNSPECIFIED ORGANISM SNOMED Code(s): 536895150 Plan: 1patient presented to hospital with fever did have tachycardia elevated white count meeting currently for SIRS/sepsis source is likely left lower lobe pneumonia patient also have significant urinary symptoms, and underlying illness was not done excluded 2-urine has not been collected and no sputum collection 3-patient antibiotic has been adjusted to Zosyn concern for possible gram- negative/aspiration pneumonia and monitor clinical course closely Dictation was produced using [employer] dictation software. please excuse any grammatical, word or spelling errors.
[2024-11-08] MEDS: PIPERACILLIN-TAZOBACTAM 3.375 GM in SODIUM CHLORIDE 0.9% 100 ML IVPB SCH (17:24)
[2024-11-08 18:51] LABS: Appearance,Urine Clear (Clear); Bilirubin,Urine Negative (Negative); Blood,Urine Negative (Negative); Color,Urine Colorless; Glucose,Urine (UA) 3+ (Negative); Ketones,Urine Negative (Negative); Leukocyte Esterase,Urine Negative (Negative); Nitrite,Urine Negative (Negative); Protein,Urine Negative (Negative); Urobilinogen,Urine <2.0 mg/dL (<2.0)
--- NOTE | 2024-11-08 19:43 | P.PN ---
Subjective Progress Note Date: 11/08/24 HISTORY OF PRESENTING ILLNESS: 84-year-old female with past medical history of dementia lives in a assisted care facility. She apparently has been feeling more weak for last couple of days. Apparently she was going to the bathroom where she had a syncopal episode and fell. She was also noticed to be in atrial fibrillation with RVR. This atrial fibrillation converted spontaneously to normal sinus rhythm. Her admission ECG shows sinus rhythm heart rate 91 bpm, first-degree AV block Repeat EKG showed atrial fibrillation heart rate 105 bpm, Admission Vitals: 109/63 heart rate 85 bpm Admission Labs: Hb 12, repeat 10.6, BUN 35, creatinine 0.9, initial lactate was elevated at 4.9, repeat at 2. Initial troponin was elevated at 0.03, NT-proBNP 750, Pro-Bishnu was not elevated. Viral panel was negative. Potassium was low at 3.4. Repeat potassium was 2.6 which was replaced. Imaging: Chest x-ray showed mild pulm congestion with possible left lower lobe infiltrate. Progress note November 04, 2024 Patient seen and examined at bedside this a.m. No further syncopal episodes or lightheadedness or dizziness. Appears to be in sinus rhythm PHYSICAL EXAMINATION: Neck: Brisk carotid upstroke, no jugular venous distention. Lungs: Clear to auscultation. Heart: Regular rate and rhythm, systolic murmur audible Abdomen: Soft nontender, positive bowel sounds. Extremities: No edema, intact distal pulses. Neuro: Alert, oritented, no focal deficits. Detailed neuro exam was not performed. ASSESSMENT: # Paroxysmal atrial fibrillation # Syncope and fall # Left lower lobe pneumonia # Metabolic derangements with lactic acidosis and hypokalemia # Dementia # Debility and frailty PLAN: Syncope and fall could be related to A-fib RVR but could also be potentiated because of excessive diuretics that patient is getting. She is also getting hypokalemic with it. I will discontinue metolazone for good. Change Lasix to Bumex or more predictable clinical response. Obtain echocardiogram Obtain TSH NT-proBNP lipids HbA1c Obtain 7-day extended Holter monitor to go home with Obtain carotid Doppler Monitor QTc as patient is on azithromycin and Seroquel. repear ekg in AM Monitor blood pressure and electrolytes and renal function. Start Bumex 1 mg p.o. daily. Add Aldactone 12.5 mg daily discontinue aspirin Start metoprolol titrate 25 mg twice daily Discontinue IV heparin drip. Start Eliquis 2.5 mg twice daily because of weight age and frailty Objective - Vital Signs Vital signs: Vital Signs Temp 97.4 F L 11/08/24 16:16 Pulse 74 11/08/24 16:16 Resp 14 11/08/24 16:16 BP 88/50 11/08/24 16:16 Pulse Ox 91 L 11/08/24 11:56 FiO2 Intake & Output 11/08/24 11/08/24 11/09/24 06:59 18:59 06:59 Intake Total 480 Output Total 1400 Balance -920 Weight Intake: Oral 480 Output: Urine 1400 Other: Voiding Method Diaper External Catheter - Labs CBC & Chem 7: 11/08/24 07:37 11/08/24 15:07 Labs: Abnormal Lab Results - Last 24 Hours (Table) 11/07/24 11/07/24 11/07/24 Range/Units 07:11 07:11 18:29 RBC (3.80-5.40) m/uL Hgb (11.4-16.0) gm/dL MCHC (31.0-37.0) g/dL Lymphocytes # (1.0-4.8) k/uL Potassium 3.2 L (3.5-5.1) mmol/L Chloride 95 L (98-107) mmol/L Carbon Dioxide 35 H (22-30) mmol/L BUN (7-17) mg/dL Glucose (74-99) mg/dL Hemoglobin A1c 7.4 H (<=6.0) % Calcium (8.4-10.2) mg/dL Free T4 2.45 H (0.78-2.19) ng/dL Urine Glucose (UA) (Negative) 11/08/24 11/08/24 11/08/24 Range/Units 07:37 07:37 15:07 RBC 3.75 L (3.80-5.40) m/uL Hgb 10.8 L (11.4-16.0) gm/dL MCHC 30.0 L (31.0-37.0) g/dL Lymphocytes # 0.6 L (1.0-4.8) k/uL Potassium 3.1 L 3.0 L (3.5-5.1) mmol/L Chloride 96 L 94 L (98-107) mmol/L Carbon Dioxide 38 H 36 H (22-30) mmol/L BUN 18 H (7-17) mg/dL Glucose 138 H (74-99) mg/dL Hemoglobin A1c (<=6.0) % Calcium 8.0 L (8.4-10.2) mg/dL Free T4 (0.78-2.19) ng/dL Urine Glucose (UA) (Negative) 11/08/24 Range/Units 18:14 RBC (3.80-5.40) m/uL Hgb (11.4-16.0) gm/dL MCHC (31.0-37.0) g/dL Lymphocytes # (1.0-4.8) k/uL Potassium (3.5-5.1) mmol/L Chloride (98-107) mmol/L Carbon Dioxide (22-30) mmol/L BUN (7-17) mg/dL Glucose (74-99) mg/dL Hemoglobin A1c (<=6.0) % Calcium (8.4-10.2) mg/dL Free T4 (0.78-2.19) ng/dL Urine Glucose (UA) 3+ H (Negative) Microbiology - Last 24 Hours (Table) 11/06/24 20:25 Blood Culture - Preliminary Blood
[2024-11-08] MEDS: QUEtiapine 25 MG TAB PO PRN (20:33)
[2024-11-08] MEDS: POTASSIUM CHLORIDE ER 20 MEQ TAB.ER PO SCH (20:33)
--- NOTE | 2024-11-08 23:36 | PN ---
PROGRESS NOTE DATE OF SERVICE: 11/08/2024 SUBJECTIVE: This is an 84-year-old woman, who was admitted with acute left lower lobe pneumonia, also has some confusion. The patient also had some syncope. There is also mild aortic stenosis on the previous 2D echo. The patient had a chest CT yesterday. PAST MEDICAL HISTORY: Reviewed. REVIEW OF SYSTEMS: Could not be taken. CURRENT MEDICATIONS: Reviewed. PHYSICAL EXAMINATION: VITAL SIGNS: Pulse is 64, blood pressure 127/58, respirations 16. CHEST: Few scattered rhonchi and crackles. ABDOMEN: Soft. NERVOUS SYSTEM: Nonfocal. SKIN: Diffusely weak. LABORATORY DATA: Potassium 3.1. Rest of the labs are noted. ASSESSMENT: 1. Acute left lower lobe pneumonia with possible sepsis, present on admission. 2. Severe hypokalemia. 3. Fall and syncope. 4. Paroxysmal atrial fibrillation. 5. History of mild aortic stenosis. 6. Elevated plasma lactic acid. 7. Troponin elevated up to 0.036. 8. History of dementia. 9. Elevated WBC. 10.Full code. RECOMMENDATIONS: Recommended to continue current management and continue symptomatic treatment; monitor lytes closely. Otherwise, we will increase the dose of potassium. Otherwise, guarded prognosis. Further recommendations to follow. See orders for details. MMODL / IJN: [id number] /
[2024-11-09 05:19] LABS: Basophils % (A) 0 %; Eosinophils # (A) 0.2 k/uL (0-0.7); Eosinophils % (A) 3 %; HGB 10.7 gm/dL (11.4-16.0); Hypochromasia Moderate; Lymphocytes # (A) 0.8 k/uL (1.0-4.8); Lymphocytes % (A) 14 %; MCH 28.7 pg (25.0-35.0); MCHC 29.7 g/dL (31.0-37.0); MCV 96.6 fL (80.0-100.0); Mean Platelet Volume 7.2; Monocytes # (A) 0.4 k/uL (0-1.0); Monocytes % (A) 7 %; Neutrophils # (A) 4.3 k/uL (1.3-7.7); Neutrophils % (A) 73 %; Platelet Count 277 k/uL (150-450); RBC 3.73 m/uL (3.80-5.40); RDW 13.7 % (11.5-15.5); WBC 5.9 k/uL (3.8-10.6)
[2024-11-09 05:44] LABS: African American GFR (CKD) >90 (>60 ml/min/1.73 sqM); Anion Gap 6 mmol/L; Blood Urea Nitrogen 15 mg/dL (7-17); Calcium 8.1 mg/dL (8.4-10.2); Carbon Dioxide 37 mmol/L (22-30); Chloride 98 mmol/L (98-107); Glucose 116 mg/dL (74-99); Non-African American GFR(CKD) 79 (>60 ml/min/1.73 sqM); Potassium 3.7 mmol/L (3.5-5.1); Sodium 141 mmol/L (137-145)
--- NOTE | 2024-11-09 13:38 | P.PN ---
Subjective Progress Note Date: 11/09/24 HISTORY OF PRESENTING ILLNESS: 84-year-old female with past medical history of dementia lives in a assisted care facility. She apparently has been feeling more weak for last couple of days. Apparently she was going to the bathroom where she had a syncopal episode and fell. She was also noticed to be in atrial fibrillation with RVR. This atrial fibrillation converted spontaneously to normal sinus rhythm. Her admission ECG shows sinus rhythm heart rate 91 bpm, first-degree AV block Repeat EKG showed atrial fibrillation heart rate 105 bpm, Admission Vitals: 109/63 heart rate 85 bpm Admission Labs: Hb 12, repeat 10.6, BUN 35, creatinine 0.9, initial lactate was elevated at 4.9, repeat at 2. Initial troponin was elevated at 0.03, NT-proBNP 750, Pro-Bishnu was not elevated. Viral panel was negative. Potassium was low at 3.4. Repeat potassium was 2.6 which was replaced. Imaging: Chest x-ray showed mild pulm congestion with possible left lower lobe infiltrate. Progress note November 04, 2024 Patient seen and examined at bedside this a.m. No further syncopal episodes or lightheadedness or dizziness. Appears to be in sinus rhythm 11/09 Patient seen and examined. Echocardiogram is pending. Holter monitor has been ordered. Blood pressure 114/71, heart rate 76, pulse ox 91% on room air. Repe at blood work reveals hemoglobin 10.7, BUN 15 creatinine 0.69, potassium 3.7. TSH 0.327 and free T42.45. proBNP 2470, triglycerides 140, cholesterol 145, LDL 69. A1c 7.4. Repeat EKG sinus rhythm with occasional PAC. QTc 428. Telemetry has been sinus rhythm. Carotid duplex reveals no evidence of hemodynamically significant stenosis. PHYSICAL EXAMINATION: Neck: Brisk carotid upstroke, no jugular venous distention. Lungs: Clear to auscultation. Heart: Regular rate and rhythm, systolic murmur audible Abdomen: Soft nontender, positive bowel sounds. Extremities: No edema, intact distal pulses. Neuro: Alert, no focal deficits. Detailed neuro exam was not performed. ASSESSMENT: # Paroxysmal atrial fibrillation, currently in sinus rhythm # Syncope and fall # Left lower lobe pneumonia # Metabolic derangements with lactic acidosis and hypokalemia # Dementia # Debility and frailty PLAN: Syncope and fall could be related to A-fib RVR but could also be potentiated because of excessive diuretics Obtain echocardiogram Obtain 7-day extended Holter monitor to go home with Monitor QTc as patient is on azithromycin and Seroquel. Monitor blood pressure and electrolytes and renal function. Start Bumex 1 mg p.o. daily and Aldactone 12.5 mg daily discontinue aspirin Start metoprolol tartrate 12.5 mg twice daily Discontinue IV heparin drip. Start Eliquis 2.5 mg twice daily because of weight age and frailty Objective - Vital Signs Vital signs: Vital Signs Temp 98.2 F 11/08/24 20:29 Pulse 87 11/09/24 03:04 Resp 16 11/09/24 03:04 BP 126/78 11/09/24 03:04 Pulse Ox 88 L 11/09/24 08:58 FiO2 Intake & Output 11/08/24 11/09/24 11/09/24 18:59 06:59 18:59 Intake Total 480 118 Output Total 1400 350 Balance -920 -350 118 Weight 35.5 kg Intake: Oral 480 118 Output: Urine 1400 350 Other: Voiding Method Diaper Diaper External Catheter External Catheter - Labs CBC & Chem 7: 11/09/24 04:32 11/09/24 04:32 Labs: Abnormal Lab Results - Last 24 Hours (Table) 11/08/24 11/08/24 11/09/24 Range/Units 15:07 18:14 04:32 RBC 3.73 L (3.80-5.40) m/uL Hgb 10.7 L (11.4-16.0) gm/dL MCHC 29.7 L (31.0-37.0) g/dL Lymphocytes # 0.8 L (1.0-4.8) k/uL Potassium 3.0 L (3.5-5.1) mmol/L Chloride 94 L (98-107) mmol/L Carbon Dioxide 36 H (22-30) mmol/L Glucose (74-99) mg/dL Calcium (8.4-10.2) mg/dL Urine Glucose (UA) 3+ H (Negative) 11/09/24 Range/Units 04:32 RBC (3.80-5.40) m/uL Hgb (11.4-16.0) gm/dL MCHC (31.0-37.0) g/dL Lymphocytes # (1.0-4.8) k/uL Potassium (3.5-5.1) mmol/L Chloride (98-107) mmol/L Carbon Dioxide 37 H (22-30) mmol/L Glucose 116 H (74-99) mg/dL Calcium 8.1 L (8.4-10.2) mg/dL Urine Glucose (UA) (Negative) Microbiology - Last 24 Hours (Table) 11/06/24 20:25 Blood Culture - Preliminary Blood
--- NOTE | 2024-11-09 15:03 | P.PN ---
Subjective Progress Note Date: 11/09/24 Principal diagnosis: Reason for follow-up is pneumonia Patient is a 84-year-old female with a past medical history significant for dementia hypothyroidism presenting to the hospital from a local longterm after pending the patient had passed out after dinner she did have a chest x-ray concerning for left lower lobe pneumonia. On today's evaluation that is 11/09/2024, patient has been afebrile, patient is complaining of some shortness of breath she also have a cough unable to cough it up denies any nausea no vomiting no abdominal pain or diarrhea. Patient white count is 5.9, creatinine 0.69 urine for Legionella antigen negative UA was negative blood cultures are pending Objective - Vital Signs Vital signs: Vital Signs Temp 97.6 F 11/09/24 08:00 Pulse 76 11/09/24 12:42 Resp 16 11/09/24 11:48 BP 114/71 11/09/24 11:48 Pulse Ox 91 L 11/09/24 11:48 FiO2 Intake & Output 11/08/24 11/09/24 11/09/24 18:59 06:59 18:59 Intake Total 480 358 Output Total 1400 350 250 Balance -920 -350 108 Weight 35.5 kg Intake: Oral 480 358 Output: Urine 1400 350 250 Other: Voiding Method Diaper Diaper Toilet External Catheter External Catheter Diaper # Voids 1 # Bowel Movements 2 - Exam GENERAL DESCRIPTION: An elderly female lying in bed in no distress RESPIRATORY SYSTEM: Unlabored breathing , decreased breath sounds at bases HEART: S1 S2 regular rate and rhythm , ABDOMEN: Soft , no tenderness EXTREMITIES: No edema feet - Labs CBC & Chem 7: 11/09/24 04:32 11/09/24 04:32 Labs: Abnormal Lab Results - Last 24 Hours (Table) 11/08/24 11/08/24 11/09/24 Range/Units 15:07 18:14 04:32 RBC 3.73 L (3.80-5.40) m/uL Hgb 10.7 L (11.4-16.0) gm/dL MCHC 29.7 L (31.0-37.0) g/dL Lymphocytes # 0.8 L (1.0-4.8) k/uL Potassium 3.0 L (3.5-5.1) mmol/L Chloride 94 L (98-107) mmol/L Carbon Dioxide 36 H (22-30) mmol/L Glucose (74-99) mg/dL Calcium (8.4-10.2) mg/dL Urine Glucose (UA) 3+ H (Negative) 11/09/24 Range/Units 04:32 RBC (3.80-5.40) m/uL Hgb (11.4-16.0) gm/dL MCHC (31.0-37.0) g/dL Lymphocytes # (1.0-4.8) k/uL Potassium (3.5-5.1) mmol/L Chloride (98-107) mmol/L Carbon Dioxide 37 H (22-30) mmol/L Glucose 116 H (74-99) mg/dL Calcium 8.1 L (8.4-10.2) mg/dL Urine Glucose (UA) (Negative) Microbiology - Last 24 Hours (Table) 11/06/24 20:25 Blood Culture - Preliminary Blood Assessment and Plan (1) Sepsis Current Visit: Yes Status: Acute Code(s): A41.9 - SEPSIS, UNSPECIFIED ORGANISM SNOMED Code(s): 78617795 (2) Pneumonia Current Visit: Yes Status: Acute Code(s): J18.9 - PNEUMONIA, UNSPECIFIED ORGANISM SNOMED Code(s): 206624125 Plan: 1patient presented to hospital with fever did have tachycardia elevated white count meeting currently for SIRS/sepsis source is likely left lower lobe pneumonia patient also have significant urinary symptoms, and underlying illness was not done excluded 2-urine has not been collected and no sputum collection 3-patient is afebrile white count has been normal urine for Legionella antigen has been negative try to obtain a sputum continue with Zosyn Dictation was produced using [employer] dictation software. please excuse any grammatical, word or spelling errors. Time with Patient: Less than 30
--- NOTE | 2024-11-09 15:44 | P.PN ---
Subjective Progress Note Date: 11/09/24 On today's evaluation of 11/09/2024, the patient is being seen for a follow-up. The patient had a syncopal episode related to a new onset atrial fibrillation with rapid medical response. The patient also has a left lower lobe pneumonia, currently on IV Zosyn. In terms of her atrial fibrillation, the patient is converted to normal sinus rhythm. The echocardiogram done on this patient is still pending. She may have an underlying valvular heart disease. She does have a harsh cardiac murmur on examination. Meanwhile, the CAT scan of the chest that was done on showed extensive pulmonary infiltration consolidation in the lung bases bilaterally left more than right. Based on that, the patient is currently on IV Zosyn. The patient is doing well. She was weaned off and the patient is currently on room air oxygen. She remains on IV Zosyn. She is also on a combination of Bumex 1 mg p.o. daily and Aldactone 12.5 mg p.o. daily. Rest of medication unchanged. The patient is on metoprolol 12.5 mg p.o. twice a day. She is on Farxiga 5 mg p.o. daily. She has dementia maintained on Namenda. She takes Seroquel 50 mg p.o. daily 25 mg at bedtime. She remains on metformin. No other issues or concerns at this point in time. Legionella urine antigen was negative. The white cell count is down to 5.9, hemoglobin of 10.7 and a platelet count of 277. BUN is 15 with a creatinine of 0.6. Objective - Vital Signs Vital signs: Vital Signs Temp 97.6 F 11/09/24 08:00 Pulse 74 11/09/24 12:28 Resp 16 11/09/24 11:48 BP 114/71 11/09/24 11:48 Pulse Ox 91 L 11/09/24 11:48 FiO2 Intake & Output 11/08/24 11/09/24 11/09/24 18:59 06:59 18:59 Intake Total 480 358 Output Total 1400 350 250 Balance -920 -350 108 Weight 35.5 kg Intake: Oral 480 358 Output: Urine 1400 350 250 Other: Voiding Method Diaper Diaper Diaper External Catheter External Catheter External Catheter # Voids 1 # Bowel Movements 2 - Exam No acute distress, very confused. Very poor historian. Patient is currently on room air oxygen HEENT examination is grossly unremarkable. Mucous membranes are moist. No oral lesions. Neck supple. Full range of motion. No adenopathy thyromegaly or neck vein distention. Cardiovascular examination reveals an irregular rhythm and rate. S1-S2 normal. No S3 or S4. Soft systolic murmur consistent with aortic stenosis is noted. Lungs reveal clear breath sounds. Breath sounds are equal bilaterally. No adventitious lung sounds including wheezes rhonchi or crackles. Abdomen soft bowel sounds are heard. No masses or tenderness. Extremities are intact. No cyanosis clubbing or edema. Skin is without rash or lesion. Neurologic examination is brief but nonfocal. - Labs CBC & Chem 7: 11/09/24 04:32 11/09/24 04:32 Labs: Abnormal Lab Results - Last 24 Hours (Table) 11/08/24 11/08/24 11/09/24 Range/Units 15:07 18:14 04:32 RBC 3.73 L (3.80-5.40) m/uL Hgb 10.7 L (11.4-16.0) gm/dL MCHC 29.7 L (31.0-37.0) g/dL Lymphocytes # 0.8 L (1.0-4.8) k/uL Potassium 3.0 L (3.5-5.1) mmol/L Chloride 94 L (98-107) mmol/L Carbon Dioxide 36 H (22-30) mmol/L Glucose (74-99) mg/dL Calcium (8.4-10.2) mg/dL Urine Glucose (UA) 3+ H (Negative) 11/09/24 Range/Units 04:32 RBC (3.80-5.40) m/uL Hgb (11.4-16.0) gm/dL MCHC (31.0-37.0) g/dL Lymphocytes # (1.0-4.8) k/uL Potassium (3.5-5.1) mmol/L Chloride (98-107) mmol/L Carbon Dioxide 37 H (22-30) mmol/L Glucose 116 H (74-99) mg/dL Calcium 8.1 L (8.4-10.2) mg/dL Urine Glucose (UA) (Negative) Microbiology - Last 24 Hours (Table) 11/06/24 20:25 Blood Culture - Preliminary Blood Assessment and Plan Plan: Syncope, possibly related to atrial fibrillation and RVR, converted to normal sinus rhythm., Converted to normal sinus. Awaiting an echocardiogram. New onset atrial fibrillation, converted to normal sinus Valvular heart disease suspected probable aortic stenosis. Awaiting echocardiogram Bilateral lower lobe pneumonia left more than right and the patient is currently on IV Zosyn. History of dementia. History of hypothyroidism. Lifelong non-smoker. Hypokalemia. Dementia and the CAT scan of the brain that was done at time of admission showed nonspecific white matter changes and chronic small vessel ischemic disease. No acute process. Severe C5-C6 degenerative disc disease. Plan: Oxygenation has improved and the patient is on room air oxygen Cardiac rhythm is sinus Continue IV Zosyn regarding left lower lobe pneumonia Repeat chest x-ray in the morning Awaiting the results of the echocardiogram Continue Namenda Continue Seroquel Continue metoprolol 12.5 mg p.o. twice a day. The patient was also started on anticoagulation with Eliquis. Continue Bumex 1 mg p.o. daily and Aldactone 12.5 mg p.o. daily. Continue Farxiga and metformin Will continue to follow. Time with Patient: Greater than 30
--- NOTE | 2024-11-09 16:32 | CA ---
Transthoracic Echo Report Name: Carol Young Age: 84 Gender: F : 1940 Exam Date: 11/09/2024 09:22 Exam Location: [facility] Ht (in): 66 Wt (lb): 140 Ordering Physician: Faisal Castellanos MD ([id number]) Attending/Referring Phys: Pattern Technician Margo Amos RDCS Procedure CPT: Indications: Afib RVR, systolic murmur Cardiac Hx: Technical Quality: Technically difficult study Contrast 1: Definity Total Dose (mL): 3 Contrast 2: Total Dose (mL): MEASUREMENTS (Male / Female) Normal Values 2D ECHO LV Diastolic Diameter PLAX 4.4 cm 4.2 - 5.9 / 3.9 - 5.3 cm LV Systolic Diameter PLAX 4.0 cm IVS Diastolic Thickness 0.7 cm 0.6 - 1.0 / 0.6 - 0.9 cm LVPW Diastolic Thickness 0.9 cm 0.6 - 1.0 / 0.6 - 0.9 cm LV Relative Wall Thickness 0.4 LVOT Diameter 2.2 cm LV Diastolic Volume MOD 4C 86.9 cm??? LV Systolic Volume MOD 4C 54.4 cm??? LV Ejection Fraction MOD 4C 37.3 % LV Cardiac Index MOD 4C 1674.9 cm???/min???m??? LV Diastolic Length 4C 7.7 cm LV Systolic Length 4C 6.9 cm LV Diastolic Volume MOD 2C 60.6 cm??? LV Diastolic Length 2C 7.3 cm LA Volume 32.4 cm??? 18 - 58 / 22 - 52 cm??? LA Volume Index 18.8 cm???/m??? 16 - 28 cm???/m??? DOPPLER AV Peak Velocity 239.5 cm/s AV Peak Gradient 22.9 mmHg AV Mean Velocity 160.8 cm/s AV Mean Gradient 11.8 mmHg AV Velocity Time Integral 47.2 cm LVOT Peak Velocity 103.9 cm/s LVOT Peak Gradient 4.3 mmHg LVOT Velocity Time Integral 21.5 cm LVOT Stroke Volume 78.7 cm??? LVOT Stroke Volume Index 45.8 ml/m??? LVOT Cardiac Index 4066.9 cm???/min???m??? AV Area Cont Eq vti 1.7 cm??? AV Area Cont Eq pk 1.6 cm??? MV Peak Velocity 118.0 cm/s MV Peak Gradient 5.6 mmHg MV Mean Velocity 81.6 cm/s MV Mean Gradient 2.9 mmHg MV Velocity Time Integral 30.7 cm MV Area PHT 5.6 cm??? Mitral E Point Velocity 90.0 cm/s Mitral A Point Velocity 105.8 cm/s Mitral E to A Ratio 0.9 MV Deceleration Time 135.4 ms TR Peak Velocity 275.4 cm/s TR Peak Gradient 30.3 mmHg Right Atrial Pressure 5.0 mmHg Pulmonary Artery Systolic Pressu 35.3 mmHg Right Ventricular Systolic Press 35.3 mmHg PV Peak Velocity 91.2 cm/s PV Peak Gradient 3.3 mmHg FINDINGS Left Ventricle Left ventricular ejection fraction is estimated at 50-55 %. Left ventricular cavity size normal. Left ventricular wall thickness normal. No obvious regional wall motion abnormalities. Right Ventricle Normal right ventricular size and function. Mild pulmonary hypertension. Right Atrium Normal right atrial size. Left Atrium Normal left atrial size. Mitral Valve Mitral valve thickened. Mitral annular calcification. No evidence for mitral valve prolapse. Mild mitral stenosis. Trace to mild mitral regurgitation. Aortic Valve Trileaflet aortic valve. Mild aortic stenosis. No aortic regurgitation. Tricuspid Valve Structurally normal tricuspid valve. No tricuspid stenosis. Mild tricuspid regurgitation. Pulmonic Valve Structurally normal pulmonic valve. No pulmonic stenosis. No pulmonic regurgitation. Pericardium No pericardial effusion. Aorta Aortic annulus normal. CONCLUSIONS Left ventricular ejection fraction 50-55% RVSP 35 Mild mitral regurgitation Mild aortic stenosis Mild tricuspid regurgitation Previewed by: Dr. Juan A Osborne DO (Electronically Signed) Final Date: 09 November 2024 16:32
[2024-11-09] MEDS: METOPROLOL TARTRATE 12.5 MG TAB PO SCH (20:48)
--- NOTE | 2024-11-09 23:25 | P.PN ---
Subjective Progress Note Date: 11/09/24 This is a pleasant 84-year-old female who was recently admitted with acute left lower lobe pneumonia also some confusion and syncope. Patient being followed by cardiology along with pulmonary and undergoing further workup including echo with concerns of fall and syncope. Patient awaiting PT/OT therapy although patient reports to feeling improved although continues to be weak. Family at the bedside with questions and concerns answered to the best of her ability as well. Adjustments to medications per cardiology and patient will also require an event monitor on discharge. Pulmonary following and antibiotics are adjusted. Review of systems: Constitutional: No reports of fatigue, fever, or chills Cardiovascular: No reports of chest pain or palpitations Respiratory: No reports of shortness of breath or cough GI: No reports of nausea, no reports of vomiting, no diarrhea : No reports of dysuria or retention Neurovascular: reports of generalized weakness, although is improved from admission All medications have been reviewed PHYSICAL EXAMINATION: GENERAL: The patient is alert and oriented x2-3 baseline, Well developed, thin built, elderly appearing, cachectic, ill-appearing HEENT: Pupils are round and equally reacting to light. EOMI. no scleral icterus. No conjunctival pallor. Normocephalic, atraumatic. No pharyngeal erythema. No thyromegaly. CARDIOVASCULAR: S1 and S2 muffled PULMONARY: diminished breath sounds bilaterally with some faint expiratory wheezes and coarse rhonchi noted. ABDOMEN: soft. Nontender on exam. Thin, scaphoid. non-distended, normoactive bowel sounds. No palpable organomegaly. MUSCULOSKELETAL: No joint swelling or deformity. EXTREMITIES: No cyanosis, clubbing, or pedal edema. Significant muscle wasting noted of upper and lower extremities NEUROLOGICAL: Gross neurological examination did not reveal any focal deficits. Diffuse weakness SKIN: No rashes. Assessment: Acute left lower lobe pneumonia with possible sepsis, present on admission Severe hypokalemia Fall and syncope undergoing further cardiac workup Paroxysmal atrial fibrillation Elevated lactic acid on admission, improved Troponin elevated up to 0.036 History of dementia Elevated white blood count Moderate protein calorie malnutrition with a BMI of 12.6 GI prophylaxis DVT prophylaxis Full code Plan: Recommend to continue with current medications and management per pulmonary and cardiology who are following. Adjustments to medications being made per cardiology and patient will be started on Bumex along with Aldactone and metoprolol. IV heparin being discontinued and patient being started on Eliquis twice daily Patient will require an event monitor on discharge per cardiology 2D echo revealed a normal EF of 50-55 % with mild mitral and tricuspid regurgitation and mild aortic stenosis noted Encouraged increase activity as tolerated and will have PT/OT therapy evaluate the patient, possible ECF versus home with home care Patient reports to feeling improved although still feels fatigued Possible discharge planning in the next 24 to 48 hours The impression and plan of care has been dictated by Caitlyn Reddy, nurse practitioner as directed. Dr. Willa MD I have performed a history and examination and MDM of this patient, discussed th e same with the dictator, and agree with the dictator's assessment and plan as written ,documented as a scribe. Based on total visit time, I have performed more than 50% of the visit. Any additional findings or plans will be noted. Objective - Vital Signs Vital signs: Vital Signs Temp 98.2 F 11/08/24 20:29 Pulse 87 11/09/24 03:04 Resp 16 11/09/24 03:04 BP 126/78 11/09/24 03:04 Pulse Ox 88 L 11/09/24 08:58 FiO2 Intake & Output 11/08/24 11/09/24 11/09/24 18:59 06:59 18:59 Intake Total 480 358 Output Total 1400 350 250 Balance -920 -350 108 Weight 35.5 kg Intake: Oral 480 358 Output: Urine 1400 350 250 Other: Voiding Method Diaper Diaper External Catheter External Catheter - Labs CBC & Chem 7: 11/09/24 04:32 11/09/24 04:32 Labs: Abnormal Lab Results - Last 24 Hours (Table) 11/08/24 11/08/24 11/09/24 Range/Units 15:07 18:14 04:32 RBC 3.73 L (3.80-5.40) m/uL Hgb 10.7 L (11.4-16.0) gm/dL MCHC 29.7 L (31.0-37.0) g/dL Lymphocytes # 0.8 L (1.0-4.8) k/uL Potassium 3.0 L (3.5-5.1) mmol/L Chloride 94 L (98-107) mmol/L Carbon Dioxide 36 H (22-30) mmol/L Glucose (74-99) mg/dL Calcium (8.4-10.2) mg/dL Urine Glucose (UA) 3+ H (Negative) 11/09/24 Range/Units 04:32 RBC (3.80-5.40) m/uL Hgb (11.4-16.0) gm/dL MCHC (31.0-37.0) g/dL Lymphocytes # (1.0-4.8) k/uL Potassium (3.5-5.1) mmol/L Chloride (98-107) mmol/L Carbon Dioxide 37 H (22-30) mmol/L Glucose 116 H (74-99) mg/dL Calcium 8.1 L (8.4-10.2) mg/dL Urine Glucose (UA) (Negative) Microbiology - Last 24 Hours (Table) 11/06/24 20:25 Blood Culture - Preliminary Blood
[2024-11-10 07:27] LABS: African American GFR (CKD) >90 (>60 ml/min/1.73 sqM); Anion Gap 7 mmol/L; Blood Urea Nitrogen 14 mg/dL (7-17); Calcium 8.3 mg/dL (8.4-10.2); Carbon Dioxide 31 mmol/L (22-30); Chloride 101 mmol/L (98-107); Glucose 116 mg/dL (74-99); Non-African American GFR(CKD) 80 (>60 ml/min/1.73 sqM); Potassium 4.4 mmol/L (3.5-5.1); Sodium 139 mmol/L (137-145)
[2024-11-10] MEDS ORDERED: metOLazone 2.5 MG TAB PO SCH (09:00)
[2024-11-10 09:51] VITALS: TEMP 97.5
[2024-11-10 12:04] VITALS: BP 106/68
--- NOTE | 2024-11-10 13:21 | P.PN ---
Subjective Progress Note Date: 11/10/24 HISTORY OF PRESENTING ILLNESS: 84-year-old female with past medical history of dementia lives in a assisted care facility. She apparently has been feeling more weak for last couple of days. Apparently she was going to the bathroom where she had a syncopal episode and fell. She was also noticed to be in atrial fibrillation with RVR. This atrial fibrillation converted spontaneously to normal sinus rhythm. Her admission ECG shows sinus rhythm heart rate 91 bpm, first-degree AV block Repeat EKG showed atrial fibrillation heart rate 105 bpm, Admission Vitals: 109/63 heart rate 85 bpm Admission Labs: Hb 12, repeat 10.6, BUN 35, creatinine 0.9, initial lactate was elevated at 4.9, repeat at 2. Initial troponin was elevated at 0.03, NT-proBNP 750, Pro-Bishnu was not elevated. Viral panel was negative. Potassium was low at 3.4. Repeat potassium was 2.6 which was replaced. Imaging: Chest x-ray showed mild pulm congestion with possible left lower lobe infiltrate. Progress note November 04, 2024 Patient seen and examined at bedside this a.m. No further syncopal episodes or lightheadedness or dizziness. Appears to be in sinus rhythm 11/09 Patient seen and examined. Echocardiogram is pending. Holter monitor has been ordered. Blood pressure 114/71, heart rate 76, pulse ox 91% on room air. Repe at blood work reveals hemoglobin 10.7, BUN 15 creatinine 0.69, potassium 3.7. TSH 0.327 and free T42.45. proBNP 2470, triglycerides 140, cholesterol 145, LDL 69. A1c 7.4. Repeat EKG sinus rhythm with occasional PAC. QTc 428. Telemetry has been sinus rhythm. Carotid duplex reveals no evidence of hemodynamically significant stenosis. 11/10 Patient is seen and examined. Yesterday, we started patient on beta-braydon, Lopressor 12.5 mg twice daily. Heart rate is in the 70s, pulse ox 94% on room air, blood pressure 106/68. Repeat blood work reveals potassium 4.4, sodium 139, BUN 14 creatinine 0.67. Echocardiogram reveals EF 50 to 55%, RVSP 35, mild MR, mild , mild TR. PHYSICAL EXAMINATION: Neck: Brisk carotid upstroke, no jugular venous distention. Lungs: Clear to auscultation. Heart: Regular rate and rhythm, systolic murmur audible Abdomen: Soft nontender, positive bowel sounds. Extremities: No edema, intact distal pulses. Neuro: Alert, no focal deficits. Detailed neuro exam was not performed. ASSESSMENT: # Paroxysmal atrial fibrillation, currently in sinus rhythm # Syncope and fall # Left lower lobe pneumonia # Metabolic derangements with lactic acidosis and hypokalemia # Dementia # Debility and frailty PLAN: Syncope and fall could be related to A-fib RVR but could also be potentiated because of excessive diuretics Obtain 7-day extended Holter monitor to go home with Monitor QTc as patient is on azithromycin and Seroquel. Monitor blood pressure and electrolytes and renal function. Continue Bumex 1 mg p.o. daily and Aldactone 12.5 mg daily discontinue aspirin Continue metoprolol tartrate 12.5 mg twice daily and Eliquis 2.5 mg twice daily because of weight age and frailty Nurse practitioner note has been reviewed, I agree with documented findings and plan of care. Patient was seen and examined. Objective - Vital Signs Vital signs: Vital Signs Temp 98.0 F 11/09/24 20:44 Pulse 77 11/10/24 09:08 Resp 18 11/10/24 09:08 BP 127/75 11/10/24 04:03 Pulse Ox 94 L 11/10/24 09:00 FiO2 Intake & Output 11/09/24 11/10/24 11/10/24 18:59 06:59 18:59 Intake Total 358 Output Total 250 Balance 108 Weight 74.7 kg Intake: Oral 358 Output: Urine 250 Other: Voiding Method Toilet Toilet Diaper Diaper # Voids 1 1 # Bowel Movements 2 1 - Labs CBC & Chem 7: 11/09/24 04:32 11/10/24 06:47 Labs: Abnormal Lab Results - Last 24 Hours (Table) 11/10/24 Range/Units 06:47 Carbon Dioxide 31 H (22-30) mmol/L Glucose 116 H (74-99) mg/dL Calcium 8.3 L (8.4-10.2) mg/dL Microbiology - Last 24 Hours (Table) 11/06/24 20:25 Blood Culture - Preliminary Blood
--- NOTE | 2024-11-10 14:22 | P.PN ---
Subjective Progress Note Date: 11/10/24 Principal diagnosis: Reason for follow-up is pneumonia Patient is a 84-year-old female with a past medical history significant for dementia hypothyroidism presenting [facility] the hospital [facility] a local [facility] after pending the patient had passed out after dinner she did have a chest x-ray concerning for left lower lobe pneumonia. On today's evaluation that is 11/10/2024, Patient is afebrile this morning patient denies having any chest pain shortness of breath she still have a cough but not able to bring up any sputum no vomiting or diarrhea has been reported. Patient did have a creatinine 0.67 blood culture have been negative Objective - Vital Signs Vital signs: Vital Signs Temp 97.5 F L 11/10/24 08:00 Pulse 73 11/10/24 12:00 Resp 16 11/10/24 12:00 BP 106/68 11/10/24 12:00 Pulse Ox 95 11/10/24 12:00 FiO2 Intake & Output 11/09/24 11/10/24 11/10/24 18:59 06:59 18:59 Intake Total 358 240 Output Total 250 Balance 108 240 Weight 74.7 kg Intake: Oral 358 240 Output: Urine 250 Other: Voiding Method Toilet Toilet Toilet Diaper Diaper Diaper # Voids 1 1 1 # Bowel Movements 2 1 - Exam GENERAL DESCRIPTION: An elderly female lying in bed in no distress RESPIRATORY SYSTEM: Unlabored breathing , decreased breath sounds at bases HEART: S1 S2 regular rate and rhythm , ABDOMEN: Soft , no tenderness EXTREMITIES: No edema feet - Labs CBC & Chem 7: 11/09/24 04:32 11/10/24 06:47 Labs: Abnormal Lab Results - Last 24 Hours (Table) 11/10/24 Range/Units 06:47 Carbon Dioxide 31 H (22-30) mmol/L Glucose 116 H (74-99) mg/dL Calcium 8.3 L (8.4-10.2) mg/dL Microbiology - Last 24 Hours (Table) 11/06/24 20:25 Blood Culture - Preliminary Blood Assessment and Plan (1) Sepsis Current Visit: Yes Status: Acute Code(s): A41.9 - SEPSIS, UNSPECIFIED ORGANISM SNOMED Code(s): 17415811 (2) Pneumonia Current Visit: Yes Status: Acute Code(s): J18.9 - PNEUMONIA, UNSPECIFIED ORGANISM SNOMED Code(s): 372310915 Plan: 1patient presented to hospital with fever did have tachycardia elevated white count meeting currently for SIRS/sepsis source is likely left lower lobe pneumonia patient also have significant urinary symptoms, and underlying illness was not done excluded 2--patient is afebrile white count has been normal urine for Legionella antigen has been negative, patient on Zosyn that can be transitioned to Augmentin on discharge discussed with the [facility] for admitting team Dictation was produced using [employer] dictation software. please excuse any grammatical, word or spelling errors. Time with Patient: Less than 30
[2024-11-10 14:32] VITALS: RESP 18
[2024-11-10 14:40] VITALS: PULSE 78
--- NOTE | 2024-11-10 16:42 | P.PN ---
Subjective Progress Note Date: 11/10/24 On today's evaluation of 11/09/2024, the patient is being seen for a follow-up. The patient had a syncopal episode related to a new onset atrial fibrillation with rapid medical response. The patient also has a left lower lobe pneumonia, currently on IV Zosyn. In terms of her atrial fibrillation, the patient is converted to normal sinus rhythm. The echocardiogram done on this patient is still pending. She may have an underlying valvular heart disease. She does have a harsh cardiac murmur on examination. Meanwhile, the CAT scan of the chest that was done on showed extensive pulmonary infiltration consolidation in the lung bases bilaterally left more than right. Based on that, the patient is currently on IV Zosyn. The patient is doing well. She was weaned off and the patient is currently on room air oxygen. She remains on IV Zosyn. She is also on a combination of Bumex 1 mg p.o. daily and Aldactone 12.5 mg p.o. daily. Rest of medication unchanged. The patient is on metoprolol 12.5 mg p.o. twice a day. She is on Farxiga 5 mg p.o. daily. She has dementia maintained on Namenda. She takes Seroquel 50 mg p.o. daily 25 mg at bedtime. She remains on metformin. No other issues or concerns at this point in time. Legionella urine antigen was negative. The white cell count is down to 5.9, hemoglobin of 10.7 and a platelet count of 277. BUN is 15 with a creatinine of 0.6. On today's evaluation of 11/10/2024, the patient is being seen for a follow-up. No new complaints. The patient is currently on room air oxygen with a pulse ox of 98%. The patient has not had any further episodes of syncope. Her heart rate is in the 70s and she has stable hemodynamics. She was started on beta- blockers and the patient is currently on metoprolol 12.5 mg p.o. twice a day. Echocardiogram showed a preserved LV function with an ejection fraction of 50 to 55%, RVSP was 35 with a mild mitral regurgitation, mild aortic stenosis and mild tricuspid regurgitation. Current rhythm is sinus. The patient is on Bumex 1 mg p.o. daily and Aldactone 12.5 mg p.o. daily. Aspirin was discontinued. The patient is on anticoagulation with Eliquis 2.5 mg p.o. twice a day. The patient is also showing labs that are essentially within normal limits with a BUN of 14 and a creatinine of 0.6. Electrolytes are all within normal limits. Legionella urine antigen was essentially negative. The patient has no specific complaints. Objective - Vital Signs Vital signs: Vital Signs Temp 97.5 F L 11/10/24 08:00 Pulse 77 11/10/24 09:08 Resp 18 11/10/24 09:08 BP 112/62 11/10/24 08:00 Pulse Ox 94 L 11/10/24 09:00 FiO2 Intake & Output 11/09/24 11/10/24 11/10/24 18:59 06:59 18:59 Intake Total 358 240 Output Total 250 Balance 108 240 Weight 74.7 kg Intake: Oral 358 240 Output: Urine 250 Other: Voiding Method Toilet Toilet Toilet Diaper Diaper Diaper # Voids 1 1 1 # Bowel Movements 2 1 - Exam No acute distress, very confused. Very poor historian. Patient is currently on room air oxygen HEENT examination is grossly unremarkable. Mucous membranes are moist. No oral lesions. Neck supple. Full range of motion. No adenopathy thyromegaly or neck vein distention. Cardiovascular examination reveals an irregular rhythm and rate. S1-S2 normal. No S3 or S4. Soft systolic murmur consistent with aortic stenosis is noted. Lungs reveal clear breath sounds. Breath sounds are equal bilaterally. No adventitious lung sounds including wheezes rhonchi or crackles. Abdomen soft bowel sounds are heard. No masses or tenderness. Extremities are intact. No cyanosis clubbing or edema. Skin is without rash or lesion. Neurologic examination is brief but nonfocal. - Labs CBC & Chem 7: 11/09/24 04:32 11/10/24 06:47 Labs: Abnormal Lab Results - Last 24 Hours (Table) 11/10/24 Range/Units 06:47 Carbon Dioxide 31 H (22-30) mmol/L Glucose 116 H (74-99) mg/dL Calcium 8.3 L (8.4-10.2) mg/dL Microbiology - Last 24 Hours (Table) 11/06/24 20:25 Blood Culture - Preliminary Blood Assessment and Plan Plan: Syncope, possibly related to atrial fibrillation and RVR, converted to normal sinus rhythm., Converted to normal sinus. Echocardiogram shows a preserved LV function with a normal ejection fraction. Cardiac rhythm remains sinus and the patient is currently on metoprolol. Patient was also started on anticoagulation with Eliquis. New onset atrial fibrillation, converted to normal sinus, currently on metoprolol anticoagulation with Eliquis Valvular heart disease suspected probable aortic stenosis. Echocardiogram shows a preserved LV function, mild , mild MR. Bilateral lower lobe pneumonia left more than right and the patient is currently on oral Augmentin and the patient was taken off the IV Zosyn. History of dementia. History of hypothyroidism. Lifelong non-smoker. Hypokalemia. Dementia and the CAT scan of the brain that was done at time of admission showed nonspecific white matter changes and chronic small vessel ischemic disease. No acute process. Severe C5-C6 degenerative disc disease. Plan: Oxygenation has improved and the patient is on room air oxygen Cardiac rhythm is sinus Continue Augmentin Echocardiogram was noted Continue Namenda Continue Seroquel Continue metoprolol 12.5 mg p.o. twice a day. The patient was also started on anticoagulation with Eliquis. Continue Bumex 1 mg p.o. daily and Aldactone 12.5 mg p.o. daily. Continue Farxiga and metformin Will continue to follow.
== END 2024-11-10 16:34 | disposition home health service (06) | DRG 871 ==
LOC: EC 13:39 → 3SCARD 15:49
PROVIDERS: ADMIT Hospitalist; ATTEND Hospitalist
DX: A41.9 Sepsis, unspecified organism (principal); J18.9 Pneumonia, unspecified organism; E44.0 Moderate protein-calorie malnutrition; E87.20 Acidosis, unspecified; I48.0 Paroxysmal atrial fibrillation; R55 Syncope and collapse; F03.90 Unspecified dementia, unspecified severity, without behavioral disturbance, psychotic disturbance, mood disturbance, and anxiety; E03.9 Hypothyroidism, unspecified; Z68.1 Body mass index [BMI] 19.9 or less, adult; Z11.52 Encounter for screening for COVID-19; Z68.26 Body mass index [BMI] 26.0-26.9, adult; E87.6 Hypokalemia; R01.1 Cardiac murmur, unspecified; M50.321 Other cervical disc degeneration at C4-C5 level; R79.89 Other specified abnormal findings of blood chemistry; I44.0 Atrioventricular block, first degree; M19.90 Unspecified osteoarthritis, unspecified site; W19.XXXA Unspecified fall, initial encounter; Z79.01 Long term (current) use of anticoagulants; Z79.82 Long term (current) use of aspirin; Z79.84 Long term (current) use of oral hypoglycemic drugs; Z79.890 Hormone replacement therapy; Z79.899 Other long term (current) drug therapy; Z90.710 Acquired absence of both cervix and uterus; Z90.49 Acquired absence of other specified parts of digestive tract
CPT/HCPCS: 36415; 70450; 71046; 71260; 72125; 72170; 80048; 80051; 80053; 80061; 81003; 83036; 83605; 83735; 83880; 84132; 84145; 84439; 84443; 84484; 85025; 85610; 85730; 86850; 86900; 86901; 87040; 87449; 87636; 93005; 93225; 93306; 93880; 94640; 94760; 96361; 96365; 96366; 96368; 96375; 99291

== ENCOUNTER 2024-11-26 19:52 | Inpatient (IN) | payer MEDICARE, BC ==
--- NOTE | 2024-11-26 20:37 | ED ---
General Adult HPI - General Chief complaint: Shortness of Breath Stated complaint: shortness of breath Time Seen by Provider: 11/26/24 20:34 Source: patient, family Mode of arrival: wheelchair Limitations: no limitations - History of Present Illness Initial comments: Carol is an 84yo female recently admitted fro pneumonia and new onset a fib, she was subsequently discharged home but has developed worsening shortness of breath and was re-started on oral antibiotics yesterday. today her work of breathing continued to worsen and EMS was called to transport her to the hospital for additional workup. Patient reports heaviness in her chest and difficulty b reathing. - Related Data Home Medications Medication Instructions Recorded Confirmed Aspirin EC [Ecotrin Low Dose] 81 mg PO DAILY@0800 08/21/24 11/06/24 Benzonatate [Tessalon Perles] 100 mg PO BID PRN 08/21/24 11/06/24 Calcium Gluconate 50 mg PO DAILY@0800 08/21/24 11/06/24 Cyanocobalamin (Vitamin B-12) 1,000 mcg PO DAILY@0800 08/21/24 11/06/24 [Vitamin B-12] Empagliflozin [Jardiance] 10 mg PO DAILY@0800 08/21/24 11/06/24 Loperamide [Imodium] 2 - 4 mg PO QID PRN 08/21/24 11/06/24 Miconazole Nitrate [Desenex] 1 applic TOPICAL BID 08/21/24 11/06/24 QUEtiapine [SEROquel] 25 mg PO HS PRN 08/21/24 11/06/24 metFORMIN HCL 1,000 mg PO BID@0800,1700 08/21/24 11/06/24 Ammonium Lactate Lotion 1 applic TOPICAL BID 11/06/24 11/06/24 [Lac-Hydrin 12% Lotion] Levothyroxine Sodium [Synthroid] 175 mcg PO DAILY 11/06/24 11/06/24 Memantine [Namenda] 10 mg PO BID 11/06/24 11/06/24 Potassium Chloride [Klor-Con M10] 10 meq PO DAILY 11/06/24 11/06/24 QUEtiapine [SEROquel] 50 mg PO DAILY 11/06/24 11/06/24 Previous Rx's Medication Instructions Recorded Amoxic-Pot Clav 875-125Mg 1 tab PO Q12HR 5 Days #10 tab 11/10/24 [Augmentin 875-125] Apixaban [Eliquis] 2.5 mg PO BID #60 tab 11/10/24 Bumetanide [BUMEX] 1 mg PO DAILY #30 tab 11/10/24 Metoprolol Tartrate [Lopressor] 12.5 mg PO BID #60 tab 11/10/24 Spironolactone [Aldactone] 12.5 mg PO DAILY #30 tab 11/10/24 Allergies Allergy/AdvReac Type Severity Reaction Status Date / Time No Known Allergies Allergy Verified 11/06/24 16:37 Review of Systems ROS Statement: Those systems with pertinent positive or pertinent negative responses have been documented in the HPI. ROS Other: All systems not noted in ROS Statement are negative. Past Medical History Past Medical History: Atrial Fibrillation, Dementia, Thyroid Disorder History of Any Multi-Drug Resistant Organisms: None Reported Past Surgical History: Appendectomy, Cholecystectomy, Hysterectomy Past Anesthesia/Blood Transfusion Reactions: No Reported Reaction Past Psychological History: No Psychological Hx Reported Smoking Status: Never smoker Past Alcohol Use History: None Reported Past Drug Use History: None Reported General Exam - General Exam Comments Initial Comments: Physical Exam GENERAL: Patient is well-developed and well-nourished. Patient is nontoxic and well-hydrated and is in no distress. HENT: Normocephalic, Atraumatic EYES: PERRL, EOMI PULMONARY: Unlabored respirations CARDIOVASCULAR: RRR Warm and well perfused extremities ABDOMEN: Non-distended SKIN: No rashes or bruising : Deferred NEUROLOGIC: Alert MUSCULOSKELETAL: Moving all extremities with no apparent injury No LE edema PSYCHIATRIC: No SI/HI Limitations: no limitations Course Vital Signs 11/26/24 11/26/24 11/26/24 19:57 20:18 21:51 Temperature 100 F H 99.7 F H Pulse Rate 96 92 Respiratory 22 24 18 Rate Blood Pressure 115/72 111/75 O2 Sat by Pulse 93 L 97 Oximetry 11/26/24 22:00 Temperature 98.8 F Pulse Rate 89 Respiratory 18 Rate Blood Pressure 90/57 O2 Sat by Pulse 98 Oximetry EKG Findings - EKG Comments: EKG Findings:: EKG interpreted by me EKG obtained due to complaint of shortness of breath EKG obtained at 2042 rate is 95 rhythm is sinus normal axis, normal intervals CA 192, QRS 88, QTc 413 there are no acute ST elevations or depressions there is no evidence of acute ischemia nor infarction. Medical Decision Making - Medical Decision Making Was pt. sent in by a medical professional or institution (GEN[facility] Tse, HORTICULTURE/FLORICULTURE TEACHER, urgent care, hospital, or [facility]...) When possible be specific @ -No Did you speak to anyone other than the patient for history (EMS, parent, family, police, friend...)? What history was obtained from this source @ -Granddaughter at bedside Did you review nursing and triage notes (agree or disagree)? Why? @ -I reviewed and agree with nursing and triage notes Were old charts reviewed (outside hosp., previous admission, EMS record, old EKG, old radiological studies, urgent care reports/EKG's, [facility] records)? Report findings @ -Previous hospitalization, labs and chest x-ray were reviewed Differential Diagnosis (chest pain, altered mental status, abdominal pain women, abdominal pain men, vaginal bleeding, weakness, fever, dyspnea, syncope, headache, dizziness, GI bleed, back pain, seizure, CVA, palpatations, mental health)? @ -Differential Chest Pain: Stable Angina, Unstable Angina, STEMI, NSTEMI Aortic Dissection, Pneumothorax, Musculoskeletal, Esophageal Spasm GERD, Cholecystitis, Pancreatitis, Zoster, this is not meant to be an all-inclusive list. Differential Dyspnea: Coronary syndrome, arrhythmia, tamponade, asthma, COPD, pulmonary embolism, pneumonia, pneumothorax, pulmonary effusion, anaphylaxis, diabetic ketoacidosis, flailed chest, pulmonary contusion, diaphragmatic rupture, anemia, neuromuscular, this is not meant to be an all-inclusive list. EKG interpreted by me (3pts min.). @ -As above X-rays interpreted by me (1pt min.). @ -Improving pneumonia CT interpreted by me (1pt min.). @ -None done U/S interpreted by me (1pt. min.). @ -None done What testing was considered but not performed or refused? (CT, X-rays, U/S, labs)? Why? @ -None What meds were considered but not given or refused? Why? @ -None Did you discuss the management of the patient with other professionals (professionals i.e. G[facility] Tse, HORTICULTURE/FLORICULTURE TEACHER, lab, RT, psych nurse, social science professor, street light repairer helper, teacher, precinct commanding officer, bottle caser)? Give summary @ -No Was smoking cessation discussed for >3mins.? @ -No Was critical care preformed (if so, how long)? @ -No Were there social determinants of health that impacted care today? How? (Homelessness, low income, unemployed, alcoholism, drug addiction, orantes sportation, low edu. Level, literacy, decrease access to med. care, alf, rehab)? @ -No Was there de-escalation of care discussed even if they declined (Discuss DNR or withdrawal of care, Hospice)? DNR status @ -No What co-morbidities impacted this encounter? (DM, HTN, Smoking, COPD, CAD, Cancer, CVA, ARF, Chemo, Hep., AIDS, mental health diagnosis, sleep apnea, morbid obesity)? @ -None Was patient admitted / discharged? Hospital course, mention meds given and route, prescriptions, significant lab abnormalities, going to OR and other pertinent info. @ -Admit The patient was seen and evaluated history is obtained from patient, family at bedside and medical record. Patient with worsening shortness of breath was restarted on antibiotics yesterday after having been hospitalized a week ago for pneumonia. Patient reported increased work of breathing since yesterday labs were obtained and troponin was significantly elevated this is a change from patient's previous. BNP is only minimally elevated. We will place the patient on heparin plan to trend the troponins and admit for ACS with concern that the dyspnea is symptom of ACS. Undiagnosed new problem with uncertain prognosis? @ -yes Drug Therapy requiring intensive monitoring for toxicity (Heparin, Nitro, Insulin, Cardizem)? @ -No Were any procedures done? @ -No Diagnosis/symptom? @ -NSTEMI Acute, or Chronic, or Acute on Chronic? @ -Acute Uncomplicated (without systemic symptoms) or Complicated (systemic symptoms)? @ -Default Side effects of treatment? @ -No Exacerbation, Progression, or Severe Exacerbation? @ -No Poses a threat to life or bodily function? How? (Chest pain, USA, DC, pneumonia, PE, COPD, DKA, ARF, appy, cholecystitis, CVA, Diverticulitis, Homicidal, Suicidal, threat to staff... and all critical care pts) @ -Yes - Lab Data Result diagrams: 11/26/24 22:04 11/26/24 20:35 Lab Results 11/26/24 11/26/24 11/26/24 Range/Units 20:35 20:35 20:35 WBC (3.8-10.6) k/uL RBC (3.80-5.40) m/uL Hgb (11.4-16.0) gm/dL Hct (34.0-46.0) % MCV (80.0-100.0) fL MCH (25.0-35.0) pg MCHC (31.0-37.0) g/dL RDW (11.5-15.5) % Plt Count (150-450) k/uL MPV Neutrophils % % Lymphocytes % % Monocytes % % Eosinophils % % Basophils % % Neutrophils # (1.3-7.7) k/uL Lymphocytes # (1.0-4.8) k/uL Monocytes # (0-1.0) k/uL Eosinophils # (0-0.7) k/uL Basophils # (0-0.2) k/uL PT (10.0-12.5) sec INR (<1.2) APTT (22.0-30.0) sec Sodium 135 L (137-145) mmol/L Potassium 4.5 (3.5-5.1) mmol/L Chloride 95 L (98-107) mmol/L Carbon Dioxide 28 (22-30) mmol/L Anion Gap 12 mmol/L BUN 25 H (7-17) mg/dL Creatinine 0.57 (0.52-1.04) mg/dL Est GFR (CKD-EPI)AfAm >90 (>60 ml/min/1.73 sqM) Est GFR (CKD-EPI)NonAf 84 (>60 ml/min/1.73 sqM) Glucose 121 H (74-99) mg/dL Lactic Ac Sepsis Rflx Plasma Lactic Acid Thomas 2.8 H* (0.7-2.0) mmol/L Calcium 8.6 (8.4-10.2) mg/dL Total Bilirubin 0.7 (0.2-1.3) mg/dL AST 33 (14-36) U/L ALT 15 (4-34) U/L Alkaline Phosphatase 90 (38-126) U/L Troponin I 2.120 H* (0.000-0.034) ng/mL NT-Pro-B Natriuret Pep pg/mL Total Protein 8.0 (6.3-8.2) g/dL Albumin 4.3 (3.5-5.0) g/dL Influenza Type A (PCR) (Not Detectd) Influenza Type B (PCR) (Not Detectd) RSV (PCR) (Not Detectd) SARS-CoV-2 (PCR) (Not Detectd) 11/26/24 11/26/24 11/26/24 Range/Units 20:35 20:38 21:04 WBC (3.8-10.6) k/uL RBC (3.80-5.40) m/uL Hgb (11.4-16.0) gm/dL Hct (34.0-46.0) % MCV (80.0-100.0) fL MCH (25.0-35.0) pg MCHC (31.0-37.0) g/dL RDW (11.5-15.5) % Plt Count (150-450) k/uL MPV Neutrophils % % Lymphocytes % % Monocytes % % Eosinophils % % Basophils % % Neutrophils # (1.3-7.7) k/uL Lymphocytes # (1.0-4.8) k/uL Monocytes # (0-1.0) k/uL Eosinophils # (0-0.7) k/uL Basophils # (0-0.2) k/uL PT (10.0-12.5) sec INR (<1.2) APTT (22.0-30.0) sec Sodium (137-145) mmol/L Potassium (3.5-5.1) mmol/L Chloride (98-107) mmol/L Carbon Dioxide (22-30) mmol/L Anion Gap mmol/L BUN (7-17) mg/dL Creatinine (0.52-1.04) mg/dL Est GFR (CKD-EPI)AfAm (>60 ml/min/1.73 sqM) Est GFR (CKD-EPI)NonAf (>60 ml/min/1.73 sqM) Glucose (74-99) mg/dL Lactic Ac Sepsis Rflx Y Plasma Lactic Acid Thomas (0.7-2.0) mmol/L Calcium (8.4-10.2) mg/dL Total Bilirubin (0.2-1.3) mg/dL AST (14-36) U/L ALT (4-34) U/L Alkaline Phosphatase (38-126) U/L Troponin I (0.000-0.034) ng/mL NT-Pro-B Natriuret Pep 1920 pg/mL Total Protein (6.3-8.2) g/dL Albumin (3.5-5.0) g/dL Influenza Type A (PCR) Not Detected (Not Detectd) Influenza Type B (PCR) Not Detected (Not Detectd) RSV (PCR) Not Detected (Not Detectd) SARS-CoV-2 (PCR) Not Detected (Not Detectd) 11/26/24 11/26/24 Range/Units 21:30 22:04 WBC 7.6 (3.8-10.6) k/uL RBC 3.94 (3.80-5.40) m/uL Hgb 11.7 (11.4-16.0) gm/dL Hct 37.2 (34.0-46.0) % MCV 94.5 (80.0-100.0) fL MCH 29.6 (25.0-35.0) pg MCHC 31.4 (31.0-37.0) g/dL RDW 15.0 (11.5-15.5) % Plt Count 267 (150-450) k/uL MPV 7.5 Neutrophils % 82 % Lymphocytes % 8 % Monocytes % 8 % Eosinophils % 0 % Basophils % 0 % Neutrophils # 6.2 (1.3-7.7) k/uL Lymphocytes # 0.6 L (1.0-4.8) k/uL Monocytes # 0.6 (0-1.0) k/uL Eosinophils # 0.0 (0-0.7) k/uL Basophils # 0.0 (0-0.2) k/uL PT 11.8 (10.0-12.5) sec INR 1.1 (<1.2) APTT 26.9 (22.0-30.0) sec Sodium (137-145) mmol/L Potassium (3.5-5.1) mmol/L Chloride (98-107) mmol/L Carbon Dioxide (22-30) mmol/L Anion Gap mmol/L BUN (7-17) mg/dL Creatinine (0.52-1.04) mg/dL Est GFR (CKD-EPI)AfAm (>60 ml/min/1.73 sqM) Est GFR (CKD-EPI)NonAf (>60 ml/min/1.73 sqM) Glucose (74-99) mg/dL Lactic Ac Sepsis Rflx Plasma Lactic Acid Thomas (0.7-2.0) mmol/L Calcium (8.4-10.2) mg/dL Total Bilirubin (0.2-1.3) mg/dL AST (14-36) U/L ALT (4-34) U/L Alkaline Phosphatase (38-126) U/L Troponin I (0.000-0.034) ng/mL NT-Pro-B Natriuret Pep pg/mL Total Protein (6.3-8.2) g/dL Albumin (3.5-5.0) g/dL Influenza Type A (PCR) (Not Detectd) Influenza Type B (PCR) (Not Detectd) RSV (PCR) (Not Detectd) SARS-CoV-2 (PCR) (Not Detectd) Disposition Clinical Impression: Elevated troponin, Dyspnea Disposition: ADMITTED IP TO THIS [facility] Condition: Serious Is patient prescribed a controlled substance at d/c from ED?: No
[2024-11-26 21:04] LABS: ALT 15 U/L (4-34); AST 33 U/L (14-36); African American GFR (CKD) >90 (>60 ml/min/1.73 sqM); Albumin 4.3 g/dL (3.5-5.0); Alkaline Phosphatase 90 U/L (38-126); Anion Gap 12 mmol/L; Blood Urea Nitrogen 25 mg/dL (7-17); Calcium 8.6 mg/dL (8.4-10.2); Carbon Dioxide 28 mmol/L (22-30); Chloride 95 mmol/L (98-107); Glucose 121 mg/dL (74-99); Non-African American GFR(CKD) 84 (>60 ml/min/1.73 sqM); Potassium 4.5 mmol/L (3.5-5.1); Sodium 135 mmol/L (137-145); Total Bilirubin 0.7 mg/dL (0.2-1.3)
--- NOTE | 2024-11-26 21:10 | XR ---
EXAMINATION TYPE: XR chest 2V DATE OF EXAM: 11/26/2024 9:05 PM COMPARISON: 11/06/2024 CLINICAL INDICATION: Female, 84 years old with history of difficulty breathing: Shortness of breath TECHNIQUE: XR chest 2V views of the chest are obtained. FINDINGS: Scattered senescent parenchymal changes noted. Hyperinflation compatible with COPD. Improved aeration left lower lobe with mild streaky atelectasis seen. No new infiltrates identified. Heart size is stable. Mediastinal structures are stable and grossly unremarkable. No evidence for hilar prominence. Degenerative changes dorsal spine. IMPRESSION: 1. Improved aeration left lower lobe with mild streaky atelectasis seen. No new infiltrates identifie d. [facility], , 11/26/2024 9:08 PM
[2024-11-26 21:22] LABS: Influenza A Not Detected (Not Detectd); Influenza B Not Detected (Not Detectd); RSV Not Detected (Not Detectd)
[2024-11-26 21:58] LABS: INR 1.1 (<1.2); Partial Thromboplastin Time 26.9 sec (22.0-30.0); Prothrombin Time 11.8 sec (10.0-12.5)
[2024-11-26 22:08] LABS: Basophils % (A) 0 %; Eosinophils % (A) 0 %; HCT 37.2 % (34.0-46.0); HGB 11.7 gm/dL (11.4-16.0); Lymphocytes # (A) 0.6 k/uL (1.0-4.8); Lymphocytes % (A) 8 %; MCH 29.6 pg (25.0-35.0); MCHC 31.4 g/dL (31.0-37.0); MCV 94.5 fL (80.0-100.0); Mean Platelet Volume 7.5; Monocytes # (A) 0.6 k/uL (0-1.0); Monocytes % (A) 8 %; Neutrophils # (A) 6.2 k/uL (1.3-7.7); Neutrophils % (A) 82 %; Platelet Count 267 k/uL (150-450); RBC 3.94 m/uL (3.80-5.40); WBC 7.6 k/uL (3.8-10.6)
[2024-11-26] MEDS ORDERED: NITROGLYCERIN SL TABS 0.4 MG TAB SUBLINGUAL PRN (23:33)
[2024-11-27] MEDS: HEPARIN SODIUM 1,000 UN/ML (10ML VL) IV ONE (00:12)
[2024-11-27] MEDS: ASPIRIN 81 MG PO STA (00:14)
[2024-11-27] MEDS: HEPARIN SOD,PORK IN 0.45% NACL 25,000 UNIT in 0.45% NACL 1 250ML.BAG IV SCH (00:15)
[2024-11-27 00:54] LABS: INR 1.1 (<1.2); Partial Thromboplastin Time 26.7 sec (22.0-30.0); Prothrombin Time 11.9 sec (10.0-12.5)
[2024-11-27 05:29] LABS: Basophils % (A) 0 %; Eosinophils % (A) 1 %; HCT 35.3 % (34.0-46.0); HGB 11.4 gm/dL (11.4-16.0); Hypochromasia Slight; Lymphocytes # (A) 0.9 k/uL (1.0-4.8); Lymphocytes % (A) 16 %; MCH 29.9 pg (25.0-35.0); MCHC 32.3 g/dL (31.0-37.0); MCV 92.7 fL (80.0-100.0); Mean Platelet Volume 7.3; Monocytes # (A) 0.5 k/uL (0-1.0); Monocytes % (A) 9 %; Neutrophils % (A) 71 %; Platelet Count 253 k/uL (150-450); RBC 3.81 m/uL (3.80-5.40); RDW 14.7 % (11.5-15.5); WBC 5.6 k/uL (3.8-10.6)
[2024-11-27 05:51] LABS: INR 1.1 (<1.2); Partial Thromboplastin Time 25.3 sec (22.0-30.0); Prothrombin Time 12.2 sec (10.0-12.5)
[2024-11-27] MEDS: HEPARIN SODIUM 1,000 UN/ML (10ML VL) IV PRN (07:06)
--- NOTE | 2024-11-27 07:34 | P.HPIM ---
History of Present Illness This is a pleasant 84 years old female who presents by her daughter from adult foster care for shortness of breath and coughing for about 1 week. Her shortness of breath is mild. Patient was thinking she has pneumonia on presentation. Patient denies chest pain She denies any other urinary or GI symptoms. No headache dizziness or weakness. She smokes about 4 cigarettes/day and denies alcohol or illicit drugs. She is afebrile and vitals are stable She has little fever of 100 degree Blood pressure 119/89. Troponin is elevated 1.9 and 1.7 Lactic acid was elevated 2.5 down to 1.5 proBNP is 1920. Pro- Calcitonin 0.14 which is negative EKG showing sinus rhythm at [address]-T changes Chest x-ray showing improved aeration of the left lower lobe with atelectasis and no new infiltrate Review of Systems Review of systems CONSTITUTIONAL: No fever, no malaise, no fatigue. HEENT: No recent visual problems or hearing problems. Denied any sore throat. CARDIOVASCULAR: No orthopnea, PND, no palpitations, no syncope. PULMONARY: No shortness of breath, no cough, no hemoptysis. GASTROINTESTINAL: No diarrhea, no nausea, no vomiting, no abdominal pain. Normoactive bowel sounds. NEUROLOGICAL: No headaches, no weakness, no numbness. HEMATOLOGICAL: Denies any bleeding or petechiae. GENITOURINARY: Denies any burning micturition, frequency, or urgency. MUSCULOSKELETAL/RHEUMATOLOGICAL: Denies any joint pain, swelling, or any muscle pain. ENDOCRINE: Denies any polyuria or polydipsia. Past Medical History Past Medical History: Atrial Fibrillation, Dementia, Thyroid Disorder History of Any Multi-Drug Resistant Organisms: None Reported Past Surgical History: Appendectomy, Cholecystectomy, Hysterectomy Past Anesthesia/Blood Transfusion Reactions: No Reported Reaction Past Psychological History: No Psychological Hx Reported Smoking Status: Never smoker Past Alcohol Use History: None Reported Past Drug Use History: None Reported Medications and Allergies Home Medications Medication Instructions Recorded Confirmed Type Aspirin EC [Ecotrin Low Dose] 81 mg PO DAILY@0800 08/21/24 11/06/24 History Benzonatate [Tessalon Perles] 100 mg PO BID PRN 08/21/24 11/06/24 History Calcium Gluconate 50 mg PO DAILY@0800 08/21/24 11/06/24 History Cyanocobalamin (Vitamin B-12) 1,000 mcg PO DAILY@0800 08/21/24 11/06/24 History [Vitamin B-12] Empagliflozin [Jardiance] 10 mg PO DAILY@0800 08/21/24 11/06/24 History Loperamide [Imodium] 2 - 4 mg PO QID PRN 08/21/24 11/06/24 History Miconazole Nitrate [Desenex] 1 applic TOPICAL BID 08/21/24 11/06/24 History QUEtiapine [SEROquel] 25 mg PO HS PRN 08/21/24 11/06/24 History metFORMIN HCL 1,000 mg PO BID@0800,1700 08/21/24 11/06/24 History Ammonium Lactate Lotion 1 applic TOPICAL BID 11/06/24 11/06/24 History [Lac-Hydrin 12% Lotion] Levothyroxine Sodium [Synthroid] 175 mcg PO DAILY 11/06/24 11/06/24 History Memantine [Namenda] 10 mg PO BID 11/06/24 11/06/24 History Potassium Chloride [Klor-Con M10] 10 meq PO DAILY 11/06/24 11/06/24 History QUEtiapine [SEROquel] 50 mg PO DAILY 11/06/24 11/06/24 History Amoxic-Pot Clav 875-125Mg 1 tab PO Q12HR 5 Days #10 tab 11/10/24 Rx [Augmentin 875-125] Apixaban [Eliquis] 2.5 mg PO BID #60 tab 11/10/24 Rx Bumetanide [BUMEX] 1 mg PO DAILY #30 tab 11/10/24 Rx Metoprolol Tartrate [Lopressor] 12.5 mg PO BID #60 tab 11/10/24 Rx Spironolactone [Aldactone] 12.5 mg PO DAILY #30 tab 11/10/24 Rx Allergies Allergy/AdvReac Type Severity Reaction Status Date / Time No Known Allergies Allergy Verified 11/06/24 16:37 Physical Exam Vitals: Vital Signs Temp Pulse Resp BP Pulse Ox 11/27/24 06:00 98.7 F 84 119/87 97 11/27/24 04:00 84 18 106/75 96 11/27/24 02:00 85 18 87/61 95 11/27/24 00:48 76 18 100/76 95 11/26/24 22:00 98.8 F 89 18 90/57 98 11/26/24 21:51 99.7 F H 92 18 111/75 97 11/26/24 20:18 24 11/26/24 19:57 100 F H 96 22 115/72 93 L Intake and Output 11/26/24 11/27/24 11/27/24 22:59 06:59 14:59 Intake Total 63.846 Balance 63.846 Intake: Intake, IV Titration 63.846 Amount Heparin Sod,Pork in 0.45% 63.846 NaCl 25,000 unit In 0.45 % NaCl 1 250ml.bag @ 12 UNITS/KG/HR 9.253 mls/hr IV .Q24H [facility] Rx#: [id number] Other: Weight 77.111 kg GENERAL: The patient is alert and oriented x3, not in any acute distress. Well developed, well nourished. HEENT: Pupils are round and equally reacting to light. EOMI. No scleral icterus. No conjunctival pallor. Normocephalic, atraumatic. No pharyngeal erythema. No t hyromegaly. CARDIOVASCULAR: S1 and S2 present. No murmurs, rubs, or gallops. PULMONARY: Chest is clear to auscultation, no wheezing , no crackles. ABDOMEN: Soft, nontender, nondistended, normoactive bowel sounds. No palpable organomegaly. MUSCULOSKELETAL: No joint swelling or deformity. EXTREMITIES: No cyanosis, clubbing, or pedal edema. NEUROLOGICAL: Gross neurological examination did not reveal any focal deficits. SKIN: No rashes. no petechiae. Results CBC & Chem 7: 11/27/24 04:52 11/26/24 20:35 Labs: Abnormal Lab Results - Last 24 Hours (Table) 11/26/24 11/26/24 11/26/24 Range/Units 20:35 20:35 20:35 Lymphocytes # (1.0-4.8) k/uL Sodium 135 L (137-145) mmol/L Chloride 95 L (98-107) mmol/L BUN 25 H (7-17) mg/dL Glucose 121 H (74-99) mg/dL Plasma Lactic Acid Thomas 2.8 H* (0.7-2.0) mmol/L Troponin I 2.120 H* (0.000-0.034) ng/mL 11/26/24 11/27/24 11/27/24 Range/Units 22:04 00:03 00:03 Lymphocytes # 0.6 L (1.0-4.8) k/uL Sodium (137-145) mmol/L Chloride (98-107) mmol/L BUN (7-17) mg/dL Glucose (74-99) mg/dL Plasma Lactic Acid Thomas 2.5 H* (0.7-2.0) mmol/L Troponin I 1.950 H* (0.000-0.034) ng/mL 11/27/24 11/27/24 Range/Units 02:43 04:52 Lymphocytes # 0.9 L (1.0-4.8) k/uL Sodium (137-145) mmol/L Chloride (98-107) mmol/L BUN (7-17) mg/dL Glucose (74-99) mg/dL Plasma Lactic Acid Thomas (0.7-2.0) mmol/L Troponin I 1.700 H* (0.000-0.034) ng/mL Assessment and Plan Assessment: Non-STEMI Nicotine dependence Possible acute bronchitis with cough and shortness of breath and low-grade fever. This could be viral. Nicotine dependence, patient counseled to quit and she agrees Dementia Hypothyroidism History of atrial fibrillation Plan: Continue with aspirin Continue with heparin Continue statin Cardiology consult Check pro- Calcitonin to rule out bacterial infection. Check viral panel of respiratory infection Labs and medication were reviewed.. Continue same treatment. Continue with symptomatic treatment. Resume home medication. Monitor labs and vitals. DVT and GI prophylaxis. Further recommendations as per clinical course of the patient DVT prophylaxis: heparin GI Prophylaxis: Pepcid PT/OT: Pending Prognosis is guarded
[2024-11-27] MEDS: ASPIRIN 325 MG TAB PO SCH (08:12)
[2024-11-27 08:36] LABS: Influenza A Not Detected (Not Detectd); Influenza B Not Detected (Not Detectd); RSV Not Detected (Not Detectd)
[2024-11-27 08:50] LABS: Chol/HDL Ratio 3.05 Ratio; LDL Cholesterol,Calculated 74.6 mg/dL (0.0-131.0); VLDL Calculation 15.42 mg/dL (5.00-40.00)
--- NOTE | 2024-11-27 11:18 | P.CRDCN ---
History of Present Illness Consult date: 11/27/24 History of present illness: This is a pleasant 84-year-old female patient with a past medical history significant for paroxysmal atrial fibrillation as well as hypertension and dyslipidemia and aortic stenosis which was mild based on the last echo was performed in 2024 was brought to the emergency department for further cardiac evaluation. The patient somewhat is a poor historian but she lives independently and she is able to achieve her daily activities with no li mitation. She came in because of shortness of breath but no pain in the chest or dizziness or lightheadedness but she has also bilateral lower extremities edema appears to be very mild. No other cardiovascular symptoms. She underwent further evaluation including troponin came to be abnormal and appears to be consistent with acute coronary event. The EKG showed sinus mechanism with no ischemic ST or T wave abnormalities noted but the chest x-ray did not show any acute abnormalities. CBC and BMP overall came to be unremarkable. On examination she seems to be in very mild heart failure with only mild bilateral lower extremities edema and mild bilateral expiratory wheezing. The NT proBNP was about 2000. She was started on heparin IV. She was on oral anticoagulation but she did not receive that within the last 48 hours. The physical examination is remarkable for regular rhythm with a systolic murmur at the right upper sternal border with diminished breathing sounds bilaterally and mild bilateral expiratory wheezing. Assessment Acute coronary event with acute non-ST elevation myocardial infarction Paroxysmal atrial fibrillation Mild heart failure with preserved ejection fraction Multiple comorbid conditions Plan Continue heparin IV Proceed with coronary angiogram Continue holding oral anticoagulation Start the patient on aspirin and statin and beta-braydon Start the patient on IV diuretics as well Follow-up with the patient Past Medical History Past Medical History: Atrial Fibrillation, Dementia, Thyroid Disorder History of Any Multi-Drug Resistant Organisms: None Reported Past Surgical History: Appendectomy, Cholecystectomy, Hysterectomy Past Anesthesia/Blood Transfusion Reactions: No Reported Reaction Past Psychological History: No Psychological Hx Reported Smoking Status: Never smoker Past Alcohol Use History: None Reported Past Drug Use History: None Reported Medications and Allergies Home Medications Medication Instructions Recorded Confirmed Type Aspirin EC [Ecotrin Low Dose] 81 mg PO DAILY@0800 08/21/24 11/06/24 History Benzonatate [Tessalon Perles] 100 mg PO BID PRN 08/21/24 11/06/24 History Calcium Gluconate 50 mg PO DAILY@0800 08/21/24 11/06/24 History Cyanocobalamin (Vitamin B-12) 1,000 mcg PO DAILY@0800 08/21/24 11/06/24 History [Vitamin B-12] Empagliflozin [Jardiance] 10 mg PO DAILY@0800 08/21/24 11/06/24 History Loperamide [Imodium] 2 - 4 mg PO QID PRN 08/21/24 11/06/24 History Miconazole Nitrate [Desenex] 1 applic TOPICAL BID 08/21/24 11/06/24 History QUEtiapine [SEROquel] 25 mg PO HS PRN 08/21/24 11/06/24 History metFORMIN HCL 1,000 mg PO BID@0800,1700 08/21/24 11/06/24 History Ammonium Lactate Lotion 1 applic TOPICAL BID 11/06/24 11/06/24 History [Lac-Hydrin 12% Lotion] Levothyroxine Sodium [Synthroid] 175 mcg PO DAILY 11/06/24 11/06/24 History Memantine [Namenda] 10 mg PO BID 11/06/24 11/06/24 History Potassium Chloride [Klor-Con M10] 10 meq PO DAILY 11/06/24 11/06/24 History QUEtiapine [SEROquel] 50 mg PO DAILY 11/06/24 11/06/24 History Amoxic-Pot Clav 875-125Mg 1 tab PO Q12HR 5 Days #10 tab 11/10/24 Rx [Augmentin 875-125] Apixaban [Eliquis] 2.5 mg PO BID #60 tab 11/10/24 Rx Bumetanide [BUMEX] 1 mg PO DAILY #30 tab 11/10/24 Rx Metoprolol Tartrate [Lopressor] 12.5 mg PO BID #60 tab 11/10/24 Rx Spironolactone [Aldactone] 12.5 mg PO DAILY #30 tab 11/10/24 Rx Allergies Allergy/AdvReac Type Severity Reaction Status Date / Time No Known Allergies Allergy Verified 11/06/24 16:37 Physical Exam Vitals: Vital Signs Temp Pulse Resp BP Pulse Ox 11/27/24 10:00 73 20 97/57 95 11/27/24 09:00 80 18 90/63 96 11/27/24 08:59 110 H 11/27/24 07:47 98.4 F 115 H 20 90/70 95 11/27/24 06:00 98.7 F 84 119/87 97 11/27/24 04:00 84 18 106/75 96 11/27/24 02:00 85 18 87/61 95 11/27/24 00:48 76 18 100/76 95 11/26/24 22:00 98.8 F 89 18 90/57 98 11/26/24 21:51 99.7 F H 92 18 111/75 97 11/26/24 20:18 24 11/26/24 19:57 100 F H 96 22 115/72 93 L Intake and Output 11/26/24 11/27/24 11/27/24 22:59 06:59 14:59 Intake Total 63.846 Balance 63.846 Intake: Intake, IV Titration 63.846 Amount Heparin Sod,Pork in 0.45% 63.846 NaCl 25,000 unit In 0.45 % NaCl 1 250ml.bag @ 12 UNITS/KG/HR 9.253 mls/hr IV .Q24H [facility] Rx#: [id number] Other: Weight 77.111 kg Results 11/27/24 04:52 11/26/24 20:35 Cardiac Enzymes 11/26/24 11/26/24 11/27/24 Range/Units 20:35 20:35 00:03 AST 33 (14-36) U/L Troponin I 2.120 H* 1.950 H* (0.000-0.034) ng/mL 11/27/24 Range/Units 02:43 AST (14-36) U/L Troponin I 1.700 H* (0.000-0.034) ng/mL Coagulation 11/26/24 11/27/24 11/27/24 Range/Units 21:30 00:03 04:52 PT 11.8 11.9 12.2 (10.0-12.5) sec APTT 26.9 26.7 25.3 (22.0-30.0) sec Lipids 11/27/24 Range/Units 04:52 Triglycerides 77.10 (0.00-149.00) mg/dL Cholesterol 134.00 (0.00-200.00) mg/dL HDL Cholesterol 44.00 (40.00-60.00) mg/dL Cholesterol/HDL Ratio 3.05 Ratio CBC 11/26/24 11/27/24 Range/Units 22:04 04:52 WBC 7.6 5.6 (3.8-10.6) k/uL RBC 3.94 3.81 (3.80-5.40) m/uL Hgb 11.7 11.4 (11.4-16.0) gm/dL Hct 37.2 35.3 (34.0-46.0) % Plt Count 267 253 (150-450) k/uL Comprehensive Metabolic Panel 11/26/24 Range/Units 20:35 Sodium 135 L (137-145) mmol/L Potassium 4.5 (3.5-5.1) mmol/L Chloride 95 L (98-107) mmol/L Carbon Dioxide 28 (22-30) mmol/L BUN 25 H (7-17) mg/dL Creatinine 0.57 (0.52-1.04) mg/dL Glucose 121 H (74-99) mg/dL Calcium 8.6 (8.4-10.2) mg/dL AST 33 (14-36) U/L ALT 15 (4-34) U/L Alkaline Phosphatase 90 (38-126) U/L Total Protein 8.0 (6.3-8.2) g/dL Albumin 4.3 (3.5-5.0) g/dL Current Medications Generic Name Dose Route Start Last Admin Trade Name Freq PRN Reason Stop Dose Admin Aspirin 81 mg 11/28/24 09:00 Aspirin 81 Mg PO DAILY [facility] Atorvastatin Calcium 40 mg 11/27/24 21:00 Atorvastatin 40 Mg Tab PO HS [facility] Furosemide 20 mg 11/27/24 21:00 Furosemide 10 Mg/Ml 2 Ml Vial IV Q12HR [facility] Heparin Sodium (Porcine) 0 unit 11/26/24 23:25 11/27/24 07:06 Heparin Sodium 1,000 Un/Ml (10ml Vl) IV 3,850 unit PER PROTOCOL PRN Administration Low PTT Protocol Heparin Sodium/Sodium Chloride 250 mls @ 9.253 mls/hr 11/26/24 23:30 11/27/24 07:09 25,000 unit/ Sodium Chloride IV 15 units/kg/hr .Q24H [facility] 11.567 mls/hr Titration Protocol 12 UNITS/KG/HR Metoprolol Succinate 12.5 mg 11/28/24 09:00 Metoprolol Succinate (Er) 25 Mg Tab.Er.24h PO DAILY [facility] Nitroglycerin 0.4 mg 11/26/24 23:33 Nitroglycerin Sl Tabs 0.4 Mg Tab SUBLINGUAL Q5M PRN Chest Pain Intake and Output 11/26/24 11/27/24 11/27/24 22:59 06:59 14:59 Intake Total 63.846 Balance 63.846 Intake: Intake, IV Titration 63.846 Amount Heparin Sod,Pork in 0.45% 63.846 NaCl 25,000 unit In 0.45 % NaCl 1 250ml.bag @ 12 UNITS/KG/HR 9.253 mls/hr IV .Q24H [facility] Rx#: [id number] Other: Weight 77.111 kg 11/27/24 04:52 11/26/24 20:35
[2024-11-27] MEDS ORDERED: ALPRAZolam 0.25 MG TAB PO PRN (11:50)
[2024-11-27] MEDS: MIDAZOLAM 2 MG/2 ML VIAL IVP ONE (12:40)
[2024-11-27] MEDS: fentaNYL (PF) 50 MCG/1 ML VIAL IVP ONE (12:40)
[2024-11-27] MEDS: LIDOCAINE 1% INJ 10MG/ML (20 ML MDV) SQ ONE (12:44)
[2024-11-27] MEDS: VERAPAMIL SYRINGE (5 MG/10 ML) INTRAARTER ONE (12:50)
[2024-11-27] MEDS: HEPARIN SODIUM 1,000 UN/ML (10ML VL) IVP ONE (12:50)
[2024-11-27] MEDS: IV FLUID CONTINUATION 800 ML IV ONE (12:52)
[2024-11-27] MEDS: IOPAMIDOL-370 100ML BTL INJ ONE (12:56)
--- NOTE | 2024-11-27 13:07 | P.CARDCATH ---
Date of Procedure: 11/27/24 Description of Procedure: DIAGNOSTIC CORONARY ANGIOGRAPHY and LEFT HEART CATH REPORT PROCEDURES PERFORMED: Left heart catheterization Selective coronary angiography Moderate conscious sedation 15 mins [Ultrasound assisted] Right radial access INDICATION: NSTEMI BRIEF HPI: 84-year-old with past medical history of paroxysmal atrial fibrillation, mild aortic stenosis, hypertension and dyslipidemia and dementia. She presented to the hospital because of generalized weakness. On admission she had evidence of elevated troponin. For this elevated troponin she was scheduled for heart catheterization procedure to rule out any NSTEMI and severe obstructive coronary artery disease. CONSENT: I have explained the procedural steps of above-mentioned procedures in layman's terms to the patient. I discussed the risks (including but not limited to stroke, emergent vascular or cardiac surgery or ), benefits and alternative therapies for the above-mentioned procedure. I discussed the risks of sedation/analgesia and blood product administration (if indicated). The patient has indicated understanding and acceptance of these risks. Conscious Sedation: Patient's ECG, heart rate, blood pressure, pulse oximetry were monitored throughout the duration of procedure under my direct supervision. 1 mg Versed and 25 mcg Fentanyl were used for induction of moderate conscious sedation. Total duration of moderate concious sedation 15 minutes. PROCEDURAL DETAILS: Patient was prepped and draped in sterile fashion. 1% lidocaine was infiltrated over the right radial artery. Right radial access was obtained via modified seldinger technique. [Ultrasound was used for radial access]. Medications: 5mg of verapamil was administed in the radial sheet. 4500 units of Heparin was administed once the catheter reached the aortic root Wires and Catheter used: J wire was advanced under fluroscopy to get to aortic root. 5 marshallese JR 4 diagnostic catheter was utilized obtain left ventricular pressure and pressure gradint across aortic valve. 5 marshallese JR 4 diagnostic catheter was used to selectively engage the right coronary ostium. 5 marshallese JL 3.5 diagnostic catheter was utilized to selectively engage the left coronary ostium. Angiographic images were reviewed in detail. Catheter and wire were removed. Radial sheet was flushed. The right radial sheath was removed and a TR band was placed. Patent hemostasis was achieved. The patient tolerated the procedure well. Patient was transported back to the post catheterization holding area in stable condition. TECHNICAL DETAILS Total radiation: 87 mGy Total fluro time: 1.8 minutes Total contrast used: Isovue 50 mL Complications: [none] Estimated Blood loss: less than 15 ml HEMODYNAMICS: Aortic Pressure: 100 /50 mmHg mmHg. LV pressure: 120/2 mmHg. LVEDP 10 mmHg. Peak to peak gradient of 20 mmHg across aortic valve. SELECTIVE CORONARY ARTERIOGRAPHY: LEFT MAIN: The left main is short and large caliber vessel. It bifurcates into the LAD and circumflex. Left main appears angiographically normal. LEFT ANTERIOR DESCENDING CORONARY ARTERY: LAD is medium caliber and terminates before reaching the apex. Proximal LAD has 20% diffuse luminal narrowing. Mid LAD gives rise to a medium size diagonal branch which appears angiographically patent with mild luminal irregularities. Mid and distal LAD appears angiographically patent. Distal LAD is small and terminates before reaching the apex. LEFT CIRCUMFLEX CORONARY ARTERY: It is nondominant vessel. Left circumflex is a moderate caliber vessel. Proximal LCx is patent. It gives rise to a medium size OM1 branch which is tortuous and is angiographically patent. After giving OM1 branch mid LCx is patent and gives a small OM 2 branch. Distal LCx continues to give the small OM 3 branch. Distal LCx and OM 3 appears patent. RIGHT CORONARY ARTERY: Dominant vessel. The right coronary artery is a large caliber vessel. Proximal RCA has minimal luminal irregularities. Mid and distal RCA has 30 to 40% diffuse calcific disease. It bifurcates into a medium sized PDA and PL branch which has mild luminal irregularities and are otherwise patent. PDA is long vessel reaches up to the apex. 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 125 cc fluids for 4 hours Further recommendations to follow clinical course Performing Physician Faisal Castellanos MD, FACC, RPVI Thank you for allowing [facility] to participate in this patient's care. Feel free to reach out in case of any followup questions.
[2024-11-27] MEDS ORDERED: RX INFO: IV CONTRAST WAS GIVEN 1 EACH MISC MISCELLANE PRN (13:08)
[2024-11-27 15:26] LABS: Partial Thromboplastin Time 42.4 sec (22.0-30.0)
[2024-11-27] MEDS: SODIUM CHLORIDE 0.9% 1,000 ML in EMPTY BAG 1 BAG IV SCH (17:09)
[2024-11-27] MEDS: SODIUM CHLORIDE 0.9% 1,000 ML IV SCH (17:09)
[2024-11-27 17:19] LABS: T4, Free (Free Thyroxine) 2.23 ng/dL (0.78-2.19)
--- NOTE | 2024-11-27 19:20 | CA ---
Transthoracic Echo Report Name: Carol Young Age: 84 Gender: F : 1940 Exam Date: 11/27/2024 14:26 Exam Location: [place] [facility] Ht (in): 65 Wt (lb): 170 Ordering Physician: Faisal Castellanos MD ([id number]) Attending/Referring Phys: Front Edger Franchesca Celestin, JED Procedure CPT: Indications: cardiomyopathy , NSTEMI Cardiac Hx: Technical Quality: Fair Contrast 1: Total Dose (mL): Contrast 2: Total Dose (mL): MEASUREMENTS (Male / Female) Normal Values 2D ECHO LV Diastolic Volume MOD BP 88.0 cm??? 67 - 155 / 56 - 104 cm??? LV Systolic Volume MOD BP 49.0 cm??? 22 - 58 / 19 - 49 cm??? LV Ejection Fraction MOD BP 44.3 % >= 55 % LV Cardiac Index MOD BP 1599.9 cm???/min???m??? LV Diastolic Volume MOD 4C 109.9 cm??? LV Systolic Volume MOD 4C 49.3 cm??? LV Ejection Fraction MOD 4C 55.1 % LV Cardiac Index MOD 4C 2486.5 cm???/min???m??? LV Diastolic Length 4C 8.7 cm LV Systolic Length 4C 7.6 cm LV Diastolic Volume MOD 2C 103.5 cm??? LV Systolic Volume MOD 2C 68.2 cm??? LV Ejection Fraction MOD 2C 34.1 % LV Cardiac Index MOD 2C 1450.4 cm???/min???m??? LV Diastolic Length 2C 8.8 cm LV Systolic Length 2C 7.8 cm DOPPLER TR Peak Velocity 258.6 cm/s TR Peak Gradient 26.8 mmHg Right Ventricular Systolic Press 31.6 mmHg FINDINGS Left Ventricle Left ventricular ejection fraction is estimated at 45-50 %. Mildly decreased left ventricular ejection fraction. Mid septal hypikinesis. Mid inferior hypokinesis Right Ventricle Right Atrium Left Atrium Mitral Valve Structurally normal mitral valve. Mild mitral regurgitation. Aortic Valve Aortic valve sclerosis. Tricuspid Valve Structurally normal tricuspid valve. Mild tricuspid regurgitation. Pulmonic Valve Pericardium No pericardial effusion. Aorta CONCLUSIONS Limited study Mildly impaired LV function with EF at 45 to 50% No pericardial effusion Previewed by: Dr. Abram Pino MD (Electronically Signed) Final Date: 27 November 2024 19:19
[2024-11-27] MEDS: ATORVASTATIN 40 MG TAB PO SCH (20:24)
[2024-11-27] MEDS: APIXABAN 2.5 MG TABLET PO SCH (20:24)
[2024-11-27] MEDS: ALPRAZolam 0.5 MG TAB PO PRN (20:24)
[2024-11-27] MEDS: methIMAzole 5 MG TAB PO SCH (20:24)
[2024-11-27] MEDS: FUROSEMIDE 10 MG/ML 2 ML VIAL IV SCH (20:24)
[2024-11-28 06:35] VITALS: RESP 16
--- NOTE | 2024-11-28 06:50 | P.PN ---
Subjective Progress Note Date: 11/28/24 This is a pleasant 84-year-old female patient with a past medical history significant for paroxysmal atrial fibrillation as well as hypertension and dyslipidemia and aortic stenosis which was mild based on the last echo was performed in 2024 was brought to the emergency department for further cardiac evaluation. The patient somewhat is a poor historian but she lives independently and she is able to achieve her daily activities with no limitation. She came in because of shortness of breath but no pain in the chest or dizziness or lightheadedness but she has also bilateral lower extremities edema appears to be very mild. No other cardiovascular symptoms. She underwent further evaluation including troponin came to be abnormal and appears to be consistent with acute coronary event. The EKG showed sinus mechanism with no ischemic ST or T wave abnormalities noted but the chest x-ray did not show any acute abnormalities. CBC and BMP overall came to be unremarkable. On examination she seems to be in very mild heart failure with only mild bilateral lower extremities edema and mild bilateral expiratory wheezing. The NT proBNP was about 2000. She was started on heparin IV. She was on oral anticoagulation but she did not receive that within the last 48 hours. The physical examination is remarkable for regular rhythm with a systolic murmur at the right upper sternal border with diminished breathing sounds bilaterally and mild bilateral expiratory wheezing. November 28, 2024 The patient was seen and evaluated this morning with currently she is asymptomatic. She underwent a heart catheterization yesterday showed normal coronaries. The echo showed mildly impaired LV function with EF between 45 to 50% and no evidence of pericardial effusion noted. The physical examination is remarkable for regular rhythm with a systolic murmur and clear breathing sounds bilaterally and no edema was noted. 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 Multiple comorbid conditions Plan Continue the current medical regimen Continue oral anticoagulation The echo showed mildly impaired LV function Continue statin and beta-braydon Possible discharge in the next 12 to 24 hours Objective - Vital Signs Vital signs: Vital Signs Temp 98.3 F 11/28/24 04:00 Pulse 87 11/28/24 04:00 Resp 16 11/28/24 04:00 BP 106/58 11/28/24 04:00 Pulse Ox 96 11/28/24 04:00 FiO2 Intake & Output 11/27/24 11/27/24 11/28/24 06:59 18:59 06:59 Intake Total 607.846 Output Total 300 1300 Balance 307.846 -1300 Weight 77.111 kg 77.111 kg 74.5 kg Intake: IV 100 Intake, IV Titration 63.846 Amount Heparin Sod,Pork in 0.45% 63.846 NaCl 25,000 unit In 0.45 % NaCl 1 250ml.bag @ 12 UNITS/KG/HR 9.253 mls/hr IV .Q24H [facility] Rx#: [id number] Oral 444 Output: Urine 300 1300 Other: Voiding Method External Catheter - Labs CBC & Chem 7: 11/27/24 04:52 11/26/24 20:35 Labs: Abnormal Lab Results - Last 24 Hours (Table) 11/27/24 11/27/24 Range/Units 14:46 14:46 APTT 42.4 H (22.0-30.0) sec D-Dimer 1.65 H (<0.60) mg/L FEU TSH 0.073 L (0.465-4.680) mIU/L Free T4 2.23 H (0.78-2.19) ng/dL
[2024-11-28] MEDS ORDERED: HEPARIN SODIUM,PORCINE (1 ML) 2,500 UNIT in SODIUM CHLORIDE 0.9% 250 ML IRRIGATION PRN (07:00)
[2024-11-28] MEDS ORDERED: HEPARIN SODIUM,PORCINE 10,000 UNIT in SODIUM CHLORIDE 0.9% 1,000 ML IRRIGATION PRN (07:00)
[2024-11-28 08:43] VITALS: BP 107/65; PULSE 83; TEMP 97.9
[2024-11-28] MEDS: DAPAGLIFLOZIN PROPANEDIOL 10 MG TABLET PO SCH (08:44)
[2024-11-28] MEDS: METOPROLOL SUCCINATE (ER) 25 MG TAB.ER.24H PO SCH (08:44)
[2024-11-28] MEDS ORDERED: ASPIRIN 81 MG PO SCH (09:00)
[2024-11-28] MEDS ORDERED: AZITHROMYCIN 500 MG TAB PO STA (09:12)
[2024-11-28 09:18] LABS: African American GFR (CKD) 90 (>60 ml/min/1.73 sqM); Anion Gap 10 mmol/L; Blood Urea Nitrogen 18 mg/dL (7-17); Calcium 8.3 mg/dL (8.4-10.2); Carbon Dioxide 32 mmol/L (22-30); Chloride 94 mmol/L (98-107); Glucose 262 mg/dL (74-99); Non-African American GFR(CKD) 78 (>60 ml/min/1.73 sqM); Potassium 3.9 mmol/L (3.5-5.1); Sodium 136 mmol/L (137-145)
[2024-11-28] MEDS ORDERED: QUEtiapine 25 MG TAB PO PRN (09:19)
--- NOTE | 2024-11-28 09:22 | P.PN ---
Subjective This is a pleasant 84 years old female who presents by her daughter from adult foster care for shortness of breath and coughing for about 1 week. Her shortness of breath is mild. Patient was thinking she has pneumonia on presentation. Patient denies chest pain She denies any other urinary or GI symptoms. No headache dizziness or weakness. She smokes about 4 cigarettes/day and denies alcohol or illicit drugs. She is afebrile and vitals are stable She has little fever of 100 degree Blood pressure 119/89. Troponin is elevated 1.9 and 1.7 Lactic acid was elevated 2.5 down to 1.5 proBNP is 1920. Pro- Calcitonin 0.14 which is negative EKG showing sinus rhythm at [address]-T changes Chest x-ray showing improved aeration of the left lower lobe with atelectasis and no new infiltrate 11/28 Patient overall doing well. No chest pain She denies any dyspnea at rest or exertional dyspnea. She still has some wet cough and on examination she has little harsh breath sounds. Very mild wheezing that goes with bronchitis. No fever or leukocytosis. Start doxycycline. Zithromax has drug-drug interaction with Seroquel She had a clean cardiac cath with mild nonobstructive coronary artery disease Echocardiogram showed mild weakening with ejection fraction 45 to 50%. Patient was started on IV Lasix Also she has evidence of hyperthyroidism which is new, mostly iatrogenic. lower dose of levothyroxine 75 mcg down to 50 mcg, recheck thyroid function test in 1 to 2 months with your primary care doctor Per peanut roaster we will keep monitoring for another 24 hours. Patient also resumed her Eliquis 2.5 mg which is listed as one of her home medication Review of systems CONSTITUTIONAL: No fever, no malaise, no fatigue. HEENT: No recent visual problems or hearing problems. Denied any sore throat. CARDIOVASCULAR: No orthopnea, PND, no palpitations, no syncope. PULMONARY: No shortness of breath, no hemoptysis. GASTROINTESTINAL: No diarrhea, no nausea, no vomiting, no abdominal pain. Normoactive bowel sounds. NEUROLOGICAL: No headaches, no weakness, no numbness. HEMATOLOGICAL: Denies any bleeding or petechiae. Active Medications Generic Name Dose Route Start Last Admin Trade Name Freq PRN Reason Stop Dose Admin Alprazolam 0.25 mg 11/27/24 11:50 Alprazolam 0.25 Mg Tab PO Q6HR PRN Mild Anxiety Alprazolam 0.5 mg 11/27/24 11:50 11/27/24 20:24 Alprazolam 0.5 Mg Tab PO 0.5 mg Q6HR PRN Administration Moderate Anxiety Apixaban 2.5 mg 11/27/24 21:00 11/28/24 08:44 Apixaban 2.5 Mg Tablet PO 2.5 mg BID KAE Administration Protocol Atorvastatin Calcium 40 mg 11/27/24 21:00 11/27/24 20:24 Atorvastatin 40 Mg Tab PO 40 mg HS KAE Administration Azithromycin 250 mg 11/29/24 09:00 Azithromycin 500 Mg Tab PO 12/02/24 09:01 DAILY KAE Protocol Dapagliflozin 10 mg 11/28/24 09:00 11/28/24 08:44 Dapagliflozin Propanediol 10 Mg Tablet PO 10 mg DAILY KAE Administration Furosemide 20 mg 11/27/24 21:00 11/28/24 08:44 Furosemide 10 Mg/Ml 2 Ml Vial IV 20 mg Q12HR KAE Administration Heparin Sodium (Porcine) 10, 1,001 mls @ 999 mls/hr 11/28/24 07:00 000 unit/ Sodium Chloride IRRIGATION 11/28/24 23:00 ONCE PRN INTRA-OP Heparin Sodium (Porcine) 2,500 250.5 mls @ 250 mls/hr 11/28/24 07:00 unit/ Sodium Chloride IRRIGATION 11/28/24 23:00 ONCE PRN INTRA-OP Sodium Chloride 1,000 ml/ IV 1,000 mls @ 77.111 mls/hr 11/27/24 12:00 11/28/24 06:01 Solution IV Not Given .[id number] KAE 1 ML/KG/HR Methimazole 5 mg 11/27/24 22:00 11/28/24 08:44 Methimazole 5 Mg Tab PO 5 mg TID KAE Administration Metoprolol Succinate 12.5 mg 11/28/24 09:00 11/28/24 08:44 Metoprolol Succinate (Er) 25 Mg Tab.Er.24h PO 12.5 mg DAILY KAE Administration Miscellaneous Information 1 each 11/27/24 13:08 Rx Info: Iv Contrast Was Given 1 Each Misc MISCELLANE 11/29/24 13:08 DAILY PRN Per Protocol Nitroglycerin 0.4 mg 11/26/24 23:33 Nitroglycerin Sl Tabs 0.4 Mg Tab SUBLINGUAL Q5M PRN Chest Pain Objective - Vital Signs Vital signs: Vital Signs Temp 97.9 F 11/28/24 08:42 Pulse 83 11/28/24 08:42 Resp 16 11/28/24 08:42 BP 107/65 11/28/24 08:42 Pulse Ox 93 L 11/28/24 08:42 FiO2 Intake & Output 11/27/24 11/28/24 11/28/24 18:59 06:59 18:59 Intake Total 607.846 180 Output Total 300 1300 400 Balance 307.846 -1300 -220 Weight 77.111 kg 74.5 kg Intake: IV 100 Intake, IV Titration 63.846 Amount Heparin Sod,Pork in 0.45% 63.846 NaCl 25,000 unit In 0.45 % NaCl 1 250ml.bag @ 12 UNITS/KG/HR 9.253 mls/hr IV .Q24H [facility] Rx#: [id number] Oral 444 180 Output: Urine 300 1300 400 Other: Voiding Method External Catheter # Voids 1 - Exam GENERAL: The patient is alert and oriented x3, not in any acute distress. Well developed, well nourished. HEENT: Pupils are round and equally reacting to light. EOMI. No scleral icterus. No conjunctival pallor. Normocephalic, atraumatic. No pharyngeal erythema. No thyromegaly. CARDIOVASCULAR: S1 and S2 present. No murmurs, rubs, or gallops. -PULMONARY: Chest is clear to auscultation, no crackles. Mild harsh breath sounds and mild wheezing bilaterally ABDOMEN: Soft, nontender, nondistended, normoactive bowel sounds. No palpable organomegaly. MUSCULOSKELETAL: No joint swelling or deformity. EXTREMITIES: No cyanosis, clubbing, or pedal edema. NEUROLOGICAL: Gross neurological examination did not reveal any focal deficits. SKIN: No rashes. no petechiae. - Labs CBC & Chem 7: 11/27/24 04:52 11/26/24 20:35 Labs: Abnormal Lab Results - Last 24 Hours (Table) 11/27/24 11/27/24 Range/Units 14:46 14:46 APTT 42.4 H (22.0-30.0) sec D-Dimer 1.65 H (<0.60) mg/L FEU TSH 0.073 L (0.465-4.680) mIU/L Free T4 2.23 H (0.78-2.19) ng/dL Assessment and Plan Assessment: Non-STEMI, cardiac cath done 11/27 showing mild nonobstructive coronary artery disease Mild cardiomyopathy with EF 45 to 50% Acute bronchitis Hypothyroidism, with iatrogenic hyperthyroidism present on admission. We lowered the dose of levothyroxine Nicotine dependence Possible acute bronchitis with cough and shortness of breath and low-grade fever. This could be viral. Nicotine dependence, patient counseled to quit and she agrees Dementia Hypothyroidism History of atrial fibrillation Plan: Continue with aspirin, but lower dose to home number of 81 mg Resume her Eliquis Patient was placed on IV Lasix 20 mg twice daily. At home she takes Bumex 1 mg p.o. daily which can be resumed upon discharge Continue statin Cardiology consult No need for antibiotics for possible lower respiratory infection but start doxycycline for bronchitis. Patient cannot use Zithromax because she takes Seroquel and there is drug drug interaction Related to her iatrogenic hyperthyroidism no need for methimazole, will lower dose of levothyroxine 75 mcg down to 50 mcg, recheck thyroid function test in 1 to 2 months with your primary care doctor Check viral panel of respiratory infection Labs and medication were reviewed.. Continue same treatment. Continue with symptomatic treatment. Resume home medication. Monitor labs and vitals. DVT and GI prophylaxis. Further recommendations as per clinical course of the patient DVT prophylaxis: heparin GI Prophylaxis: Pepcid PT/OT: Pending Prognosis is guarded
[2024-11-28] MEDS: DOXYCYCLINE 50 MG CAP PO SCH (10:29)
[2024-11-28] MEDS ORDERED: MEMANTINE 10 MG TAB PO SCH (21:00)
[2024-11-29] MEDS ORDERED: LEVOTHYROXINE 50 MCG TAB PO SCH (06:30)
[2024-11-29] MEDS ORDERED: ASPIRIN 81 MG PO SCH (08:00)
[2024-11-29] MEDS ORDERED: QUEtiapine 50 MG TAB PO SCH (09:00)
[2024-11-29] MEDS ORDERED: SPIRONOLACTONE 25 MG TAB PO SCH (09:00)
[2024-11-29] MEDS ORDERED: AZITHROMYCIN 500 MG TAB PO SCH (09:00)
[2024-11-29] MEDS ORDERED: metFORMIN 500 MG TAB PO SCH (17:00)
--- NOTE | 2024-12-01 15:45 | CDI ---
Documentation Clarification Form Date: 12/01/2024 03:29:35 PM From: Kanika Chand RN CCDS Phone: [phone] Admit Date: 11/26/2024 11:33:00 PM Patient Name: Carol Young Visit Number: [id number] Discharge Date: 11/28/2024 10:50:00 AM ATTENTION: The Clinical Documentation Specialists (CDI) and [facility] Coding Staff appreciate your assistance in clarifying documentation. Please respond to the clarification below the line at the bottom and electronically sign. The CDI & [facility] Coding staff will review the response and follow-up if needed. Please note: Queries are made part of the Legal Health Record. If you have any questions, please contact the author of this message via ITS. Doctor: Abram Pino Your patient has the documented diagnosis of unspecified CHF 11/28, cardiology note. Additional information regarding the acuity of CHF is requested. History/Risk Factors: 84 y/o Female presents to the ED for worsening shortness of breath and was restarted on oral antibiotics yesterday. Clinical Indicators: VS/Pulse OX, 11/26 B/P 115/72, HR 96, Temp 100. F Oral BNP, 11/26: 1920 Echocardiogram Results, 11/27: Limited study mildly impaired LV function with EF at 45 to 50% No pericardial effusion Chest X Ray, 11/26: Improved aeration left lower lobe with mild streaky atelectasis seen. Treatment: 11/27 11/28 Lasix 20mg IV Q12H; 11/28 Toprol Xl 12.5mg po daily In your professional opinion, can you please clarify the acuity of CHF if known? [ ] Acute Diastolic Heart Failure (preserved EF) [ ] Other, please specify [ ] Unable to determine (Template Last Revised: October 2020) MTDD
== END 2024-11-28 10:50 | disposition home or self-care (01) | DRG 280 ==
LOC: EC 19:52 → 3SCARD 23:33
PROVIDERS: ADMIT Internal Medicine; ATTEND Internal Medicine
PROC: B2111ZZ Fluoroscopy of Multiple Coronary Arteries using Low Osmolar Contrast (ICD-10-PCS; 2024-11-27)
PROC: 4A023N7 Measurement of Cardiac Sampling and Pressure, Left Heart, Percutaneous Approach (ICD-10-PCS; principal; 2024-11-27 19:50)
DX: I21.4 Non-ST elevation (NSTEMI) myocardial infarction (principal); I50.31 Acute diastolic (congestive) heart failure; I11.0 Hypertensive heart disease with heart failure; F03.90 Unspecified dementia, unspecified severity, without behavioral disturbance, psychotic disturbance, mood disturbance, and anxiety; E03.9 Hypothyroidism, unspecified; E05.80 Other thyrotoxicosis without thyrotoxic crisis or storm; I42.9 Cardiomyopathy, unspecified; J20.9 Acute bronchitis, unspecified; F17.210 Nicotine dependence, cigarettes, uncomplicated; I25.10 Atherosclerotic heart disease of native coronary artery without angina pectoris; I48.0 Paroxysmal atrial fibrillation; Z79.82 Long term (current) use of aspirin; Z79.84 Long term (current) use of oral hypoglycemic drugs; Z79.890 Hormone replacement therapy; Z79.01 Long term (current) use of anticoagulants; Z79.899 Other long term (current) drug therapy; Z90.710 Acquired absence of both cervix and uterus
CPT/HCPCS: 36415; 71046; 80048; 80053; 80061; 83605; 83880; 84145; 84439; 84443; 84484; 85025; 85379; 85610; 85730; 87636; 93005; 93308; 93458; 96365; 96366; 99285

== ENCOUNTER 2024-12-14 11:27 | Emergency (ER) | payer MEDICARE, BC ==
--- NOTE | 2024-12-14 11:49 | ED ---
General Adult HPI - General Chief complaint: Shortness of Breath Stated complaint: Low SPO 2 Time Seen by Provider: 12/14/24 11:32 Source: patient, EMS, RN notes reviewed Mode of arrival: EMS Limitations: no limitations - History of Present Illness Initial comments: Patient is an 84-year-old female presenting to emergency department with concern for hypoxia. Patient comes from [facility] home with reports of her oxygen being in the upper 80s there. EMS reports that her oxygen level was fine for them. Patient states she feels fine and has no complaints. Patient denies cough. Patient denies fever. Patient denies any dyspnea. - Related Data Home Medications Medication Instructions Recorded Confirmed Aspirin EC [Ecotrin Low Dose] 81 mg PO DAILY@79908/21/24 12/14/24 Cyanocobalamin (Vitamin B-12) 1,000 mcg PO DAILY@79908/21/24 12/14/24 [Vitamin B-12] metFORMIN HCL 1,000 mg PO BID@0800,17008/21/24 12/14/24 Ammonium Lactate Lotion 1 applic TOPICAL BID@799,199911/06/24 12/14/24 [Lac-Hydrin 12% Lotion] Memantine [Namenda] 10 mg PO HS@199911/06/24 12/14/24 Potassium Chloride [Klor-Con M10] 10 meq PO DAILY@79911/06/24 12/14/24 QUEtiapine [SEROquel] 50 mg PO DAILY@169911/06/24 12/14/24 Azithromycin [Zithromax Z Pack] See Taper PO DIRECTED@79912/14/24 12/14/24 Bumetanide [BUMEX] 1 mg PO DAILY@79912/14/24 12/14/24 Levothyroxine Sodium [Synthroid] 75 mcg PO DAILY@62912/14/24 12/14/24 Magnesium Oxide [Mag-Ox] 400 mg PO DAILY@79912/14/24 12/14/24 Metoprolol Tartrate [Lopressor] 25 mg PO BID@08,199912/14/24 12/14/24 QUEtiapine [SEROquel] 100 mg PO HS@199912/14/24 12/14/24 Spironolactone [Aldactone] 12.5 mg PO DAILY@0800 12/14/24 12/14/24 Previous Rx's Medication Instructions Recorded Levothyroxine Sodium [Synthroid] 50 mcg PO DAILY@0630 #30 tab 11/28/24 Allergies Allergy/AdvReac Type Severity Reaction Status Date / Time No Known Allergies Allergy Verified 12/14/24 14:15 Review of Systems ROS Statement: Those systems with pertinent positive or pertinent negative responses have been documented in the HPI. ROS Other: All systems not noted in ROS Statement are negative. Constitutional: Denies: fever Eyes: Denies: eye pain ENT: Denies: ear pain Respiratory: Reports: as per HPI. Denies: cough, dyspnea Endocrine: Denies: fatigue Past Medical History Past Medical History: Atrial Fibrillation, Dementia, Thyroid Disorder History of Any Multi-Drug Resistant Organisms: None Reported Past Surgical History: Appendectomy, Cholecystectomy, Hysterectomy Past Anesthesia/Blood Transfusion Reactions: No Reported Reaction Past Psychological History: No Psychological Hx Reported Smoking Status: Current some day smoker Past Alcohol Use History: None Reported Past Drug Use History: None Reported General Exam Limitations: no limitations General appearance: alert, in no apparent distress Head exam: Present: normocephalic Eye exam: Present: normal appearance Neck exam: Present: normal inspection Respiratory exam: Present: rhonchi Cardiovascular Exam: Present: regular rate, normal rhythm GI/Abdominal exam: Present: soft. Absent: tenderness Extremities exam: Present: pedal edema (Mild bilateral which patient states is chronic). Absent: calf tenderness Neurological exam: Present: alert Psychiatric exam: Present: normal affect, normal mood Skin exam: Present: normal color Course Vital Signs 12/14/24 12/14/24 12/14/24 11:29 11:32 12:34 Temperature 97.8 F Pulse Rate 78 83 Respiratory 20 24 Rate Blood Pressure 141/75 O2 Sat by Pulse 95 Oximetry 12/14/24 12:43 Temperature Pulse Rate 77 Respiratory Rate Blood Pressure O2 Sat by Pulse Oximetry Medical Decision Making - Medical Decision Making Was pt. sent in by a medical professional or institution (GENTRY Tse, REELING MACHINE SETUP OPERATOR, urgent care, hospital, or care home...) When possible be specific @ -Patient sent from assisted living, Did you speak to anyone other than the patient for history (EMS, parent, family, police, friend...)? What history was obtained from this source @ -No Did you review nursing and triage notes (agree or disagree)? Why? @ -I reviewed and agree with nursing and triage notes Were old charts reviewed (outside hosp., previous admission, EMS record, old EKG, old radiological studies, urgent care reports/EKG's, care home records)? Report findings @ -No old charts were reviewed Differential Diagnosis (chest pain, altered mental status, abdominal pain women, abdominal pain men, vaginal bleeding, weakness, fever, dyspnea, syncope, headache, dizziness, GI bleed, back pain, seizure, CVA, palpatations, mental health, musculoskeletal)? @ -Differential Dyspnea: Coronary syndrome, arrhythmia, tamponade, asthma, COPD, pulmonary embolism, pneumonia, pneumothorax, pulmonary effusion, anaphylaxis, diabetic ketoacidosis, flailed chest, pulmonary contusion, diaphragmatic rupture, anemia, neuromuscular, this is not meant to be an all-inclusive list. EKG interpreted by me (3pts min.). @ -As above X-rays interpreted by me (1pt min.). @ -Chest x-ray shows nonspecific minimal right lower changes CT interpreted by me (1pt min.). @ -None done U/S interpreted by me (1pt. min.). @ -None done What testing was considered but not performed or refused? (CT, X-rays, U/S, labs)? Why? @ -None What meds were considered but not given or refused? Why? @ -None Did you discuss the management of the patient with other professionals (professionals i.e. , PA, REELING MACHINE SETUP OPERATOR, lab, RT, psych nurse, social work faculty member, tufting machine operator, teacher, retirement officer, case technician)? Give summary @ -No Was smoking cessation discussed for >3mins.? @ -No Was critical care preformed (if so, how long)? @ -No Were there social determinants of health that impacted care today? How? (Homelessness, low income, unemployed, alcoholism, drug addiction, tra nsportation, low edu. Level, literacy, decrease access to med. care, fci, rehab)? @ -No Was there de-escalation of care discussed even if they declined (Discuss DNR or withdrawal of care, Hospice)? DNR status @ -No What co-morbidities impacted this encounter? (DM, HTN, Smoking, COPD, CAD, Cancer, CVA, ARF, Chemo, Hep., AIDS, mental health diagnosis, sleep apnea, morbid obesity)? @ -History of COPD Was patient admitted / discharged? Hospital course, mention meds given and route, prescriptions, significant lab abnormalities, going to OR and other pertinent info. @ -Patient presents with concerns for hypoxia. No hypoxia by EMS or in the emergency department. Minimal questionable changes on x-ray. Blood work not consistent with CHF nor pneumonia. Patient reevaluated and remained symptom- free. Patient will be discharged and recommended close follow-up with repeat chest x-ray Undiagnosed new problem with uncertain prognosis? @ -No Drug Therapy requiring intensive monitoring for toxicity (Heparin, Nitro, Insulin, Cardizem)? @ -No Were any procedures done? @ -No Diagnosis/symptom? @ -COPD Acute, or Chronic, or Acute on Chronic? @ -Acute on chronic Uncomplicated (without systemic symptoms) or Complicated (systemic symptoms)? @ -Default Side effects of treatment? @ -No Exacerbation, Progression, or Severe Exacerbation? @ -No Poses a threat to life or bodily function? How? (Chest pain, [place], [place], pneumonia, PE, COPD, DKA, ARF, appy, cholecystitis, CVA, Diverticulitis, Homicidal, Suicidal, threat to staff... and all critical care pts) @ -No - Lab Data Result diagrams: 12/14/24 13:16 12/14/24 13:16 Lab Results 12/14/24 12/14/24 12/14/24 Range/Units 11:48 13:16 13:16 WBC 8.30 (4.50-10.00) 10*3/uL RBC 4.23 (4.10-5.20) 10*6/uL Hgb 12.7 (12.0-15.0) g/dL Hct 39.0 (37.2-46.3) % MCV 92.2 (80.0-97.0) fL MCH 30.0 (27.0-32.0) pg MCHC 32.6 (32.0-37.0) g/dL Plt Count 407 (140-440) 10*3/uL MPV 9.7 (9.5-12.2) fL Immature Gran % (Auto) 0.5 % Neutrophils % 75.5 % Lymphocytes % 12.9 % Monocytes % 9.3 % Eosinophils % 1.6 % Basophils % 0.2 % Immature Gran # 0.04 (0.00-0.04) 10*3/uL Neutrophils # 6.27 (1.80-7.70) 10*3/uL Lymphocytes # 1.07 (0.90-5.00) 10*3/uL Monocytes # 0.77 (0.20-1.00) 10*3/uL Eosinophils # 0.13 (0.04-0.35) 10*3/uL Basophils # 0.02 (0.00-0.10) 10*3/uL Sodium 138 (137-145) mmol/L Potassium 4.0 (3.5-5.1) mmol/L Chloride 91 L (98-107) mmol/L Carbon Dioxide 38 H (22-30) mmol/L Anion Gap 9 mmol/L BUN 28 H (7-17) mg/dL Creatinine 0.76 (0.52-1.04) mg/dL Est GFR (CKD-EPI)AfAm 83 (>60 ml/min/1.73 sqM) Est GFR (CKD-EPI)NonAf 72 (>60 ml/min/1.73 sqM) Glucose 92 (74-99) mg/dL Plasma Lactic Acid Thomas (0.7-2.0) mmol/L Calcium 8.8 (8.4-10.2) mg/dL Magnesium 1.6 (1.6-2.3) mg/dL Total Bilirubin 0.5 (0.2-1.3) mg/dL AST 25 (14-36) U/L ALT 16 (4-34) U/L Alkaline Phosphatase 92 (38-126) U/L NT-Pro-B Natriuret Pep 1170 pg/mL Total Protein 7.5 (6.3-8.2) g/dL Albumin 4.0 (3.5-5.0) g/dL Influenza Type A (PCR) Not Detected (Not Detectd) Influenza Type B (PCR) Not Detected (Not Detectd) RSV (PCR) Not Detected (Not Detectd) SARS-CoV-2 (PCR) Not Detected (Not Detectd) 12/14/24 Range/Units 13:16 WBC (4.50-10.00) 10*3/uL RBC (4.10-5.20) 10*6/uL Hgb (12.0-15.0) g/dL Hct (37.2-46.3) % MCV (80.0-97.0) fL MCH (27.0-32.0) pg MCHC (32.0-37.0) g/dL Plt Count (140-440) 10*3/uL MPV (9.5-12.2) fL Immature Gran % (Auto) % Neutrophils % % Lymphocytes % % Monocytes % % Eosinophils % % Basophils % % Immature Gran # (0.00-0.04) 10*3/uL Neutrophils # (1.80-7.70) 10*3/uL Lymphocytes # (0.90-5.00) 10*3/uL Monocytes # (0.20-1.00) 10*3/uL Eosinophils # (0.04-0.35) 10*3/uL Basophils # (0.00-0.10) 10*3/uL Sodium (137-145) mmol/L Potassium (3.5-5.1) mmol/L Chloride (98-107) mmol/L Carbon Dioxide (22-30) mmol/L Anion Gap mmol/L BUN (7-17) mg/dL Creatinine (0.52-1.04) mg/dL Est GFR (CKD-EPI)AfAm (>60 ml/min/1.73 sqM) Est GFR (CKD-EPI)NonAf (>60 ml/min/1.73 sqM) Glucose (74-99) mg/dL Plasma Lactic Acid Thomas 2.9 H* (0.7-2.0) mmol/L Calcium (8.4-10.2) mg/dL Magnesium (1.6-2.3) mg/dL Total Bilirubin (0.2-1.3) mg/dL AST (14-36) U/L ALT (4-34) U/L Alkaline Phosphatase (38-126) U/L NT-Pro-B Natriuret Pep pg/mL Total Protein (6.3-8.2) g/dL Albumin (3.5-5.0) g/dL Influenza Type A (PCR) (Not Detectd) Influenza Type B (PCR) (Not Detectd) RSV (PCR) (Not Detectd) SARS-CoV-2 (PCR) (Not Detectd) Disposition Clinical Impression: COPD (chronic obstructive pulmonary disease) Disposition: HOME SELF-CARE Condition: Stable Instructions (If sedation given, give patient instructions): COPD (Chronic Obstructive Pulmonary Disease) (ED) Additional Instructions: Please do follow-up with your primary care physician in the next day or 2 for recheck. Return for low oxygen, difficulty breathing, fevers, worsening or changing symptoms or any other concerns. Repeat chest x-ray within the next 2 days for recheck. Is patient prescribed a controlled substance at d/c from ED?: No Referrals: Davin Tarango MD [Primary Care Provider] - 1-2 days Time of Disposition: 14:31
--- NOTE | 2024-12-14 12:13 | XR ---
EXAMINATION TYPE: XR chest 2V DATE OF EXAM: 12/14/2024 12:04 PM COMPARISON: 11/26/2024 CLINICAL INDICATION: Female, 84 years old with history of hypoxia hx, , TECHNIQUE: PA and lateral views FINDINGS: Heart upper limits of normal in size. Atherosclerotic arch calcifications. Mild patchy density in the right lower lung. Additional increased interstitial density. IMPRESSION: Increased interstitial density and mild patchy right basilar opacity. Correlate to exclude mild CHF v ersus bronchitis, or atypical pneumonias. [facility], , 12/14/2024 12:11 PM
[2024-12-14 12:28] LABS: Influenza A Not Detected (Not Detectd); Influenza B Not Detected (Not Detectd); RSV Not Detected (Not Detectd)
[2024-12-14] MEDS: IPRATROPIUM-ALBUTEROL 3 ML NEB INHALATION STA (12:33)
[2024-12-14 13:49] LABS: Basophils # (A) 0.02 10*3/uL (0.00-0.10); Basophils % (A) 0.2 %; Eosinophils # (A) 0.13 10*3/uL (0.04-0.35); Eosinophils % (A) 1.6 %; HGB 12.7 g/dL (12.0-15.0); Lymphocytes # (A) 1.07 10*3/uL (0.90-5.00); Lymphocytes % (A) 12.9 %; MCHC 32.6 g/dL (32.0-37.0); MCV 92.2 fL (80.0-97.0); Mean Platelet Volume 9.7 fL (9.5-12.2); Monocytes # (A) 0.77 10*3/uL (0.20-1.00); Monocytes % (A) 9.3 %; Neutrophils # (A) 6.27 10*3/uL (1.80-7.70); Neutrophils % (A) 75.5 %; Platelet Count 407 10*3/uL (140-440); RBC 4.23 10*6/uL (4.10-5.20); RDW 15.5 % (11.5-14.5)
[2024-12-14 14:04] LABS: ALT 16 U/L (4-34); AST 25 U/L (14-36); African American GFR (CKD) 83 (>60 ml/min/1.73 sqM); Alkaline Phosphatase 92 U/L (38-126); Anion Gap 9 mmol/L; Blood Urea Nitrogen 28 mg/dL (7-17); Calcium 8.8 mg/dL (8.4-10.2); Carbon Dioxide 38 mmol/L (22-30); Chloride 91 mmol/L (98-107); Glucose 92 mg/dL (74-99); Magnesium 1.6 mg/dL (1.6-2.3); Non-African American GFR(CKD) 72 (>60 ml/min/1.73 sqM); Sodium 138 mmol/L (137-145); Total Bilirubin 0.5 mg/dL (0.2-1.3); Total Protein 7.5 g/dL (6.3-8.2)
[2024-12-14 14:12] LABS: NT-Pro-B-Type Natriuretic Pept 1170 pg/mL
[2024-12-14 14:56] VITALS: RESP 18
[2024-12-14 15:51] VITALS: BP 124/78; PULSE 78; TEMP 97.8
== END 2024-12-14 15:51 | disposition home or self-care (01) ==
LOC: EC 11:27
DX: J44.9 Chronic obstructive pulmonary disease, unspecified (principal); F17.200 Nicotine dependence, unspecified, uncomplicated
CPT/HCPCS: 36415; 71046; 80053; 83605; 83735; 83880; 85025; 87636; 94640; 99285

== ENCOUNTER 2024-12-20 18:43 | Emergency (ER) | payer MEDICARE, BC ==
[2024-12-20 19:10] LABS: Basophils # (A) 0.03 10*3/uL (0.00-0.10); Basophils % (A) 0.3 %; Eosinophils # (A) 0.06 10*3/uL (0.04-0.35); Eosinophils % (A) 0.7 %; HCT 33.8 % (37.2-46.3); Lymphocytes # (A) 0.61 10*3/uL (0.90-5.00); Lymphocytes % (A) 6.8 %; MCH 30.1 pg (27.0-32.0); MCHC 32.5 g/dL (32.0-37.0); MCV 92.3 fL (80.0-97.0); Mean Platelet Volume 9.6 fL (9.5-12.2); Monocytes # (A) 0.93 10*3/uL (0.20-1.00); Monocytes % (A) 10.4 %; Neutrophils % (A) 81.6 %; Platelet Count 262 10*3/uL (140-440); RBC 3.66 10*6/uL (4.10-5.20); RDW 15.2 % (11.5-14.5); WBC 8.95 10*3/uL (4.50-10.00)
[2024-12-20 19:19] LABS: Partial Thromboplastin Time 26.1 sec (22.0-30.0); Prothrombin Time 11.4 sec (10.0-12.5)
[2024-12-20 19:25] LABS: ALT 15 U/L (4-34); AST 21 U/L (14-36); African American GFR (CKD) 77 (>60 ml/min/1.73 sqM); Albumin 3.6 g/dL (3.5-5.0); Alkaline Phosphatase 70 U/L (38-126); Anion Gap 11 mmol/L; Blood Urea Nitrogen 35 mg/dL (7-17); Calcium 8.6 mg/dL (8.4-10.2); Carbon Dioxide 31 mmol/L (22-30); Chloride 94 mmol/L (98-107); Glucose 264 mg/dL (74-99); Magnesium 1.9 mg/dL (1.6-2.3); Non-African American GFR(CKD) 66 (>60 ml/min/1.73 sqM); Phosphorus 4.1 mg/dL (2.5-4.5); Potassium 4.5 mmol/L (3.5-5.1); Sodium 136 mmol/L (137-145); Total Bilirubin 0.6 mg/dL (0.2-1.3); Total Protein 6.8 g/dL (6.3-8.2)
[2024-12-20 19:33] LABS: NT-Pro-B-Type Natriuretic Pept 797 pg/mL
--- NOTE | 2024-12-20 19:34 | XR ---
EXAMINATION TYPE: XR chest 2V DATE OF EXAM: 12/20/2024 7:15 PM COMPARISON: Prior chest radiographs, most recently dated 12/14/2024. CLINICAL INDICATION: Female, 84 years old with history of Weakness; [facility] TECHNIQUE: XR chest 2V Frontal and lateral views of the chest. FINDINGS: Lungs/Pleura: There is no evidence of pleural effusion, focal consolidation, or pneumothorax. Pulmonary vascularity: Unremarkable. Heart/mediastinum: Cardiomediastinal silhouette is unremarkable. Musculoskeletal: No acute osseous pathology. Other findings: None IMPRESSION: No acute cardiopulmonary disease/process. [facility], , 12/20/2024 7:32 PM
[2024-12-20] MEDS: IBUPROFEN 600 MG TAB PO STA (19:37)
[2024-12-20] MEDS: ACETAMINOPHEN TAB 500 MG TAB PO STA (19:37)
--- NOTE | 2024-12-20 19:40 | ED ---
Fever HPI - General Chief Complaint: Shortness of Breath Stated Complaint: Medication issues, SOB Time Seen by Provider: 12/20/24 18:45 Source: EMS, RN notes reviewed, old records reviewed Mode of arrival: EMS Limitations: no limitations - History of Present Illness Initial Comments: This is an 83 female from [facility] for fever concern for may be taking too much of her medication multiple medications she took an extra dose of today patient herself has no complaints maybe some shortness of breath but nothing significant no chest pain headache or electrical contacts nausea vomiting or diarrhea patient was having a fine day and has no symptoms MD Complaint: fever (Patient did not and was unaware she had a fever) -: unknown Context: sick contacts Associated Symptoms: denies other symptoms Treatments Prior to Arrival: none - Related Data Home Medications Medication Instructions Recorded Confirmed Aspirin EC [Ecotrin Low Dose] 81 mg PO DAILY@0808/21/24 12/14/24 Cyanocobalamin (Vitamin B-12) 1,000 mcg PO DAILY@79908/21/24 12/14/24 [Vitamin B-12] metFORMIN HCL 1,000 mg PO BID@0800,17008/21/24 12/14/24 Ammonium Lactate Lotion 1 applic TOPICAL BID@799,199911/06/24 12/14/24 [Lac-Hydrin 12% Lotion] Memantine [Namenda] 10 mg PO HS@199911/06/24 12/14/24 Potassium Chloride [Klor-Con M10] 10 meq PO DAILY@0800 11/06/24 12/14/24 QUEtiapine [SEROquel] 50 mg PO DAILY@169911/06/24 12/14/24 Azithromycin [Zithromax Z Pack] See Taper PO DIRECTED@79912/14/24 12/14/24 Bumetanide [BUMEX] 1 mg PO DAILY@79912/14/24 12/14/24 Levothyroxine Sodium [Synthroid] 75 mcg PO DAILY@62912/14/24 12/14/24 Magnesium Oxide [Mag-Ox] 400 mg PO DAILY@0812/14/24 12/14/24 Metoprolol Tartrate [Lopressor] 12.5 mg PO BID@799,199912/14/24 12/14/24 QUEtiapine [SEROquel] 100 mg PO HS@2000 12/14/24 12/14/24 Spironolactone [Aldactone] 12.5 mg PO DAILY@0800 12/14/24 12/14/24 Previous Rx's Medication Instructions Recorded Levothyroxine Sodium [Synthroid] 50 mcg PO DAILY@0630 #30 tab 11/28/24 Cephalexin [Keflex] 500 mg PO TID 7 Days #21 cap 12/20/24 Allergies Allergy/AdvReac Type Severity Reaction Status Date / Time No Known Allergies Allergy Verified 12/20/24 18:51 Review of Systems ROS Statement: Those systems with pertinent positive or pertinent negative responses have been documented in the HPI. ROS Other: All systems not noted in ROS Statement are negative. Past Medical History Past Medical History: Atrial Fibrillation, Dementia, Thyroid Disorder History of Any Multi-Drug Resistant Organisms: None Reported Past Surgical History: Appendectomy, Cholecystectomy, Hysterectomy Past Anesthesia/Blood Transfusion Reactions: No Reported Reaction Past Psychological History: No Psychological Hx Reported Smoking Status: Current some day smoker Past Alcohol Use History: None Reported Past Drug Use History: None Reported General Exam Limitations: no limitations General appearance: alert, in no apparent distress Head exam: Present: atraumatic, normocephalic, normal inspection Eye exam: Present: normal appearance, PERRL, EOMI. Absent: scleral icterus, conjunctival injection, periorbital swelling ENT exam: Present: normal exam, mucous membranes moist Neck exam: Present: normal inspection. Absent: tenderness, meningismus, lymphadenopathy Respiratory exam: Present: normal lung sounds bilaterally. Absent: respiratory distress, wheezes, rales, rhonchi, stridor Cardiovascular Exam: Present: regular rate, normal rhythm, normal heart sounds. Absent: systolic murmur, diastolic murmur, rubs, gallop, clicks GI/Abdominal exam: Present: soft, normal bowel sounds. Absent: distended, tenderness, guarding, rebound, rigid Extremities exam: Present: normal inspection, full ROM, normal capillary refill. Absent: tenderness, pedal edema, joint swelling, calf tenderness Back exam: Present: normal inspection Neurological exam: Present: alert, oriented X3, CN II-XII intact Psychiatric exam: Present: normal affect, normal mood Skin exam: Present: warm, dry, intact, normal color. Absent: rash Course Vital Signs 12/20/24 12/20/2425 18:48 20:42 23:29 Temperature 99.5 F 98.8 F Pulse Rate 88 82 76 Respiratory 16 18 18 Rate Blood Pressure 120/70 134/94 117/59 O2 Sat by Pulse 94 L 96 99 Oximetry - Reevaluation(s) Reevaluation #1: 12/20/24 20:01 Medical records reviewed Reevaluation #2: 12/20/24 21:09 Patient symptoms improving here in the ER Reevaluation #3: 12/20/24 21:09 Patient informed of results questions answered Reevaluation #4: Was pt. sent in by a medical professional or institution (, PA, CONSULTATIVE SALES ASSOCIATE, urgent care, hospital, or half-way...) When possible be specific @ -no Did you speak to anyone other than the patient for history (EMS, parent, family, police, friend...)? What history was obtained from this source @ -no Did you review nursing and triage notes (agree or disagree)? Why? @ -agree Are old charts reviewed (outside hosp., previous admission, EMS record, old EKG, old radiological studies, urgent care reports/EKG's, half-way records)? Report findings @ -yes Differential Diagnosis (chest pain, altered mental status, abdominal pain women, abdominal pain men, vaginal bleeding, weakness, fever, dyspnea, syncope, headache, dizziness, GI bleed, back pain, seizure, CVA, palpatations, mental health, musculoskeletal)? @ -prior EKG interpreted by me (3pts min.). @ -yes X-rays interpreted by me (1pt min.). @ -yes negative for acute disease CT interpreted by me (1pt min.). @ -no U/S interpreted by me (1pt. min.). @ -no What testing was considered but not performed or refused? (CT, X-rays, U/S, labs)? Why? @ -none What meds were considered but not given or refused? Why? @ -none Did you discuss the management of the patient with other professionals (professionals i.e. , [facility], CONSULTATIVE SALES ASSOCIATE, lab, RT, psych nurse, addiction social worker, plastic sheeting cutter, teacher, legal officer, caser shoe parts)? Give summary @ -no Was smoking cessation discussed for >3mins.? @ -no Was critical care preformed (if so, how long)? @ -no Were there social determinants of health that impacted care today? How? (Homelessness, low income, unemployed, alcoholism, drug addiction, transportation, low edu. Level, literacy, decrease access to med. care, residential, rehab)? @ -none Was there de-escalation of care discussed even if they declined (Discuss DNR or withdrawal of care, Hospice)? DNR status @ -no What co-morbidities impacted this encounter? (DM, HTN, Smoking, COPD, CAD, Cancer, CVA, ARF, Chemo, Hep., AIDS, mental health diagnosis, sleep apnea, morbid obesity)? @ -none Was patient admitted / discharged? Hospital course, mention meds given and route, prescriptions, significant lab abnormalities, going to OR and other pertinent info. @ - 84 female to be discharged home UTI fever. Patient is able to tolerate oral intake has no complaints and can be discharged Discharge Undiagnosed new problem with uncertain prognosis? @ -no Drug Therapy requiring intensive monitoring for toxicity (Heparin, Nitro, Insulin, Cardizem)? @ -no Were any procedures done? @ -no Diagnosis/symptom? @ -UTI with fever Acute, or Chronic, or Acute on Chronic? @ -Acute Uncomplicated (without systemic symptoms) or Complicated (systemic symptoms)? @ -Complicated Side effects of treatment? @ -no Exacerbation, Progression, or Severe Exacerbation? @ -exacerbation Poses a threat to life or bodily function? How? (Chest pain, [place], [place], pneumonia, PE, COPD, DKA, ARF, appy, cholecystitis, CVA, Diverticulitis, Homicidal, Suicidal, threat to staff... and all critical care pts) @ -yes extremes of age Reevaluation #5: Differential Fever: Pneumonia, viral URI, endocarditis, myocarditis, pericarditis, otitis, sinusitis, peritonsillar Abscess, retropharyngeal Abscess, epiglottitis, peritonitis, appendicitis, Mabel cystitis, diverticulitis, hepatitis, colitis, UTI, PID, TOA, pyelonephritis, prostatitis, epididymitis, meningitis, encephalitis, pulmonary embolism, CVA, thyroid storm, pancreatitis, adrenal crisis, cavernous sinus thrombosis, this is not meant to be an all-inclusive list. Medical Decision Making - Medical Decision Making 84 female to be discharged home UTI fever. Patient is able to tolerate oral intake has no complaints and can be discharged - Lab Data Result diagrams: 12/20/24 19:03 12/20/24 19:03 Lab Results 12/20/24 12/20/24 12/20/24 Range/Units 19:03 19:03 19:03 WBC 8.95 (4.50-10.00) 10*3/uL RBC 3.66 L (4.10-5.20) 10*6/uL Hgb 11.0 L (12.0-15.0) g/dL Hct 33.8 L (37.2-46.3) % MCV 92.3 (80.0-97.0) fL MCH 30.1 (27.0-32.0) pg MCHC 32.5 (32.0-37.0) g/dL Plt Count 262 (140-440) 10*3/uL MPV 9.6 (9.5-12.2) fL Immature Gran % (Auto) 0.2 % Neutrophils % 81.6 % Lymphocytes % 6.8 % Monocytes % 10.4 % Eosinophils % 0.7 % Basophils % 0.3 % Immature Gran # 0.02 (0.00-0.04) 10*3/uL Neutrophils # 7.30 (1.80-7.70) 10*3/uL Lymphocytes # 0.61 L (0.90-5.00) 10*3/uL Monocytes # 0.93 (0.20-1.00) 10*3/uL Eosinophils # 0.06 (0.04-0.35) 10*3/uL Basophils # 0.03 (0.00-0.10) 10*3/uL PT 11.4 (10.0-12.5) sec INR 1.0 (<1.2) APTT 26.1 (22.0-30.0) sec Sodium 136 L (137-145) mmol/L Potassium 4.5 (3.5-5.1) mmol/L Chloride 94 L (98-107) mmol/L Carbon Dioxide 31 H (22-30) mmol/L Anion Gap 11 mmol/L BUN 35 H (7-17) mg/dL Creatinine 0.81 (0.52-1.04) mg/dL Est GFR (CKD-EPI)AfAm 77 (>60 ml/min/1.73 sqM) Est GFR (CKD-EPI)NonAf 66 (>60 ml/min/1.73 sqM) Glucose 264 H (74-99) mg/dL Lactic Ac Sepsis Rflx Plasma Lactic Acid Thomas (0.7-2.0) mmol/L Calcium 8.6 (8.4-10.2) mg/dL Phosphorus 4.1 (2.5-4.5) mg/dL Magnesium 1.9 (1.6-2.3) mg/dL Total Bilirubin 0.6 (0.2-1.3) mg/dL AST 21 (14-36) U/L ALT 15 (4-34) U/L Alkaline Phosphatase 70 (38-126) U/L Troponin I (0.000-0.034) ng/mL NT-Pro-B Natriuret Pep 797 pg/mL Total Protein 6.8 (6.3-8.2) g/dL Albumin 3.6 (3.5-5.0) g/dL Urine Color Urine Appearance (Clear) Urine pH (5.0-8.0) Ur Specific [place] (1.001-1.035) Urine Protein (Negative) Urine Glucose (UA) (Negative) Urine Ketones (Negative) Urine Blood (Negative) Urine Nitrite (Negative) Urine Bilirubin (Negative) Urine Urobilinogen (<2.0) mg/dL Ur Leukocyte Esterase (Negative) Urine RBC (0-5) /hpf Urine WBC (0-5) /hpf Urine WBC Clumps (None) /hpf Ur Squamous Epith Cells (0-4) /hpf Urine Bacteria (None) /hpf Hyaline Casts (0-2) /lpf Urine Mucus (None) /hpf Urine Yeast (Budding) (None) /hpf Influenza Type A (PCR) (Not Detectd) Influenza Type B (PCR) (Not Detectd) RSV (PCR) (Not Detectd) SARS-CoV-2 (PCR) (Not Detectd) 12/20/24 12/20/24 12/20/24 Range/Units 19:03 19:03 19:03 WBC (4.50-10.00) 10*3/uL RBC (4.10-5.20) 10*6/uL Hgb (12.0-15.0) g/dL Hct (37.2-46.3) % MCV (80.0-97.0) fL MCH (27.0-32.0) pg MCHC (32.0-37.0) g/dL Plt Count (140-440) 10*3/uL MPV (9.5-12.2) fL Immature Gran % (Auto) % Neutrophils % % Lymphocytes % % Monocytes % % Eosinophils % % Basophils % % Immature Gran # (0.00-0.04) 10*3/uL Neutrophils # (1.80-7.70) 10*3/uL Lymphocytes # (0.90-5.00) 10*3/uL Monocytes # (0.20-1.00) 10*3/uL Eosinophils # (0.04-0.35) 10*3/uL Basophils # (0.00-0.10) 10*3/uL PT (10.0-12.5) sec INR (<1.2) APTT (22.0-30.0) sec Sodium (137-145) mmol/L Potassium (3.5-5.1) mmol/L Chloride (98-107) mmol/L Carbon Dioxide (22-30) mmol/L Anion Gap mmol/L BUN (7-17) mg/dL Creatinine (0.52-1.04) mg/dL Est GFR (CKD-EPI)AfAm (>60 ml/min/1.73 sqM) Est GFR (CKD-EPI)NonAf (>60 ml/min/1.73 sqM) Glucose (74-99) mg/dL Lactic Ac Sepsis Rflx Plasma Lactic Acid Thomas 3.4 H* (0.7-2.0) mmol/L Calcium (8.4-10.2) mg/dL Phosphorus (2.5-4.5) mg/dL Magnesium (1.6-2.3) mg/dL Total Bilirubin (0.2-1.3) mg/dL AST (14-36) U/L ALT (4-34) U/L Alkaline Phosphatase (38-126) U/L Troponin I <0.012 (0.000-0.034) ng/mL NT-Pro-B Natriuret Pep pg/mL Total Protein (6.3-8.2) g/dL Albumin (3.5-5.0) g/dL Urine Color Urine Appearance (Clear) Urine pH (5.0-8.0) Ur Specific [place] (1.001-1.035) Urine Protein (Negative) Urine Glucose (UA) (Negative) Urine Ketones (Negative) Urine Blood (Negative) Urine Nitrite (Negative) Urine Bilirubin (Negative) Urine Urobilinogen (<2.0) mg/dL Ur Leukocyte Esterase (Negative) Urine RBC (0-5) /hpf Urine WBC (0-5) /hpf Urine WBC Clumps (None) /hpf Ur Squamous Epith Cells (0-4) /hpf Urine Bacteria (None) /hpf Hyaline Casts (0-2) /lpf Urine Mucus (None) /hpf Urine Yeast (Budding) (None) /hpf Influenza Type A (PCR) Not Detected (Not Detectd) Influenza Type B (PCR) Not Detected (Not Detectd) RSV (PCR) Not Detected (Not Detectd) SARS-CoV-2 (PCR) Not Detected (Not Detectd) 12/20/24 12/20/24 Range/Units 19:24 20:38 WBC (4.50-10.00) 10*3/uL RBC (4.10-5.20) 10*6/uL Hgb (12.0-15.0) g/dL Hct (37.2-46.3) % MCV (80.0-97.0) fL MCH (27.0-32.0) pg MCHC (32.0-37.0) g/dL Plt Count (140-440) 10*3/uL MPV (9.5-12.2) fL Immature Gran % (Auto) % Neutrophils % % Lymphocytes % % Monocytes % % Eosinophils % % Basophils % % Immature Gran # (0.00-0.04) 10*3/uL Neutrophils # (1.80-7.70) 10*3/uL Lymphocytes # (0.90-5.00) 10*3/uL Monocytes # (0.20-1.00) 10*3/uL Eosinophils # (0.04-0.35) 10*3/uL Basophils # (0.00-0.10) 10*3/uL PT (10.0-12.5) sec INR (<1.2) APTT (22.0-30.0) sec Sodium (137-145) mmol/L Potassium (3.5-5.1) mmol/L Chloride (98-107) mmol/L Carbon Dioxide (22-30) mmol/L Anion Gap mmol/L BUN (7-17) mg/dL Creatinine (0.52-1.04) mg/dL Est GFR (CKD-EPI)AfAm (>60 ml/min/1.73 sqM) Est GFR (CKD-EPI)NonAf (>60 ml/min/1.73 sqM) Glucose (74-99) mg/dL Lactic Ac Sepsis Rflx Y Plasma Lactic Acid Thomas (0.7-2.0) mmol/L Calcium (8.4-10.2) mg/dL Phosphorus (2.5-4.5) mg/dL Magnesium (1.6-2.3) mg/dL Total Bilirubin (0.2-1.3) mg/dL AST (14-36) U/L ALT (4-34) U/L Alkaline Phosphatase (38-126) U/L Troponin I (0.000-0.034) ng/mL NT-Pro-B Natriuret Pep pg/mL Total Protein (6.3-8.2) g/dL Albumin (3.5-5.0) g/dL Urine Color Light Yellow Urine Appearance Cloudy H (Clear) Urine pH 6.0 (5.0-8.0) Ur Specific [place] 1.014 (1.001-1.035) Urine Protein Trace H (Negative) Urine Glucose (UA) Negative (Negative) Urine Ketones Negative (Negative) Urine Blood Trace H (Negative) Urine Nitrite Negative (Negative) Urine Bilirubin Negative (Negative) Urine Urobilinogen <2.0 (<2.0) mg/dL Ur Leukocyte Esterase Large H (Negative) Urine RBC 6 H (0-5) /hpf Urine WBC >182 H (0-5) /hpf Urine WBC Clumps Moderate H (None) /hpf Ur Squamous Epith Cells 2 (0-4) /hpf Urine Bacteria Occasional H (None) /hpf Hyaline Casts 5 H (0-2) /lpf Urine Mucus Rare H (None) /hpf Urine Yeast (Budding) Rare H (None) /hpf Influenza Type A (PCR) (Not Detectd) Influenza Type B (PCR) (Not Detectd) RSV (PCR) (Not Detectd) SARS-CoV-2 (PCR) (Not Detectd) - EKG Data -: EKG Interpreted by Me - Radiology Data Radiology results: report reviewed (Chest x-ray is negative for acute disease), image reviewed Disposition Clinical Impression: UTI (urinary tract infection), Fever Disposition: HOME SELF-CARE Condition: Fair Prescriptions: Cephalexin [Keflex] 500 mg PO TID 7 Days #21 cap Is patient prescribed a controlled substance at d/c from ED?: No Referrals: Davin Tarango MD [Primary Care Provider] - 1-2 days
[2024-12-20] MEDS: SODIUM CHLORIDE 0.9% 1,000 ML IV ONE (19:42)
[2024-12-20 19:45] LABS: Influenza A Not Detected (Not Detectd); Influenza B Not Detected (Not Detectd); RSV Not Detected (Not Detectd)
[2024-12-20] MEDS: SODIUM CHLORIDE 0.9% 1,000 ML IV SCH (19:51)
[2024-12-20 20:43] VITALS: RESP 18; TEMP 98.8
[2024-12-20 20:51] LABS: Appearance,Urine Cloudy (Clear); Bacteria,Urine Occasional /hpf; Bilirubin,Urine Negative (Negative); Blood,Urine Trace (Negative); Budding Yeast,Urine Rare /hpf; Color,Urine Light Yellow; Glucose,Urine (UA) Negative (Negative); Hyaline Casts,Urine 5 /lpf (0-2); Ketones,Urine Negative (Negative); Leukocyte Esterase,Urine Large (Negative); Mucus,Urine Rare /hpf; Nitrite,Urine Negative (Negative); Protein,Urine Trace (Negative); RBC,Urine 6 /hpf (0-5); Specific Gravity,Urine 1.014 (1.001-1.035); Squamous Epithelial Cell,Urine 2 /hpf (0-4); Urobilinogen,Urine <2.0 mg/dL (<2.0); WBC,Urine >182 /hpf (0-5)
[2024-12-20] MEDS: SODIUM CHLORIDE 0.9% 500 ML 500 ML IV ONE (21:15)
[2024-12-20 23:31] VITALS: BP 117/59; PULSE 76
== END 2024-12-20 23:30 | disposition home or self-care (01) ==
LOC: EC 18:43
DX: N39.0 Urinary tract infection, site not specified (principal); F17.200 Nicotine dependence, unspecified, uncomplicated
CPT/HCPCS: 36415; 93005; 83880; 80053; 83605; 83735; 84100; 84484; 85025; 85610; 85730; 81001; 87636; 71046; 99285; 96365; 96361; J0696

== ENCOUNTER → 2025-01-18 | Outpatient (CLI) | payer MEDICARE, BC ==
[2025-01-18 10:21] LABS: HGB 11.4 g/dL (12.0-15.0); MCHC 30.8 g/dL (32.0-37.0); MCV 97.4 FL (80.0-97.0); Mean Platelet Volume 9.3 FL (9.5-12.2); NRBC Per 100 WBC 0 X 10*3/uL (0.00-0.01); Platelet Count 295 X 10*3/uL (140-440); RDW 17.4 % (11.5-14.5); WBC 7.08 X 10*3/uL (4.50-10.00)
[2025-01-18 11:41] LABS: BUN/Creat Ratio 41.75 Ratio (12.00-20.00); Blood Urea Nitrogen 33.4 mg/dL (9.0-27.0); Carbon Dioxide 26.7 mmol/L (21.6-31.8); Chloride 98 mmol/L (96-109); Chol/HDL Ratio 2.06 Ratio; Glucose 142 mg/dL (70-110); LDL Cholesterol,Calculated 41.2 mg/dL (0.0-131.0); Potassium 4.2 mmol/L (3.5-5.5); Sodium 140 mmol/L (135-145); VLDL Calculation 12.22 mg/dL (5.00-40.00)
[2025-01-18 11:42] LABS: ALT 41 U/L (8-44); AST 41 U/L (13-35); Albumin 3.9 g/dL (3.8-4.9); Alkaline Phosphatase 106 U/L (41-126); Calcium 8.5 mg/dL (8.7-10.3); Total Bilirubin 0.2 mg/dL (0.3-1.2); Total Protein 6.9 g/dL (6.2-8.2)
[2025-01-18 13:46] LABS: NT-Pro-B-Type Natriuretic Pept 331 pg/mL (0-450)
[2025-01-19 11:13] LABS: T4, Free (Free Thyroxine) 0.6 ng/dL (0.80-1.80)
== END | disposition home or self-care (01) ==
LOC: LABWHC1 07:58
PROVIDERS: ATTEND Student in an Organized Health Care Education/Training Program
DX: I50.9 Heart failure, unspecified (principal); E78.5 Hyperlipidemia, unspecified; E11.9 Type 2 diabetes mellitus without complications; E03.9 Hypothyroidism, unspecified; D72.9 Disorder of white blood cells, unspecified; R79.89 Other specified abnormal findings of blood chemistry
CPT/HCPCS: 36415; 80053; 80061; 83036; 83880; 84439; 84443; 84481; 85027

== ENCOUNTER 2025-02-25 14:33 | Inpatient (IN) | payer MEDICARE, BC ==
--- NOTE | 2025-02-25 15:01 | ED ---
General Adult HPI - General Source: patient, family, RN notes reviewed Mode of arrival: wheelchair Limitations: altered mental status <Sudhir Vergara - Last Filed: 02/25/25 15:00> - General Source: family, RN notes reviewed Mode of arrival: wheelchair Limitations: altered mental status - History of Present Illness Onset/Timin -: week(s) <Brett Rojas - Last Filed: 02/25/25 22:09> - General Stated complaint: Confusion/Hallucinations Time Seen by Provider: 02/25/25 14:50 - History of Present Illness Initial comments: Quick note this is an 85-year-old female presents emerged from with family for evaluation of increasing confusion, history of dementia. Patient reports that she fell but there was no reports from assisted living home. Patient has no obvious injuries. Patient was started on new medication for anxiety, dementia issues 2 weeks ago seem to initially work but symptoms have worsened. No recent UTIs no other signs of infection. (Sudhir Vergara) This is an 85-year-old female with history including dementia, COPD and A-fib presenting with daughter for worsening confusion and agitation for the past 2 weeks. Daughter states patient is "not making sense", stating patient is normally completely oriented and goes out to lunch with her. States patient lives in assisted living. Daughter states patient recently received lorazepam 0.5 mg twice daily from Dr. Tarango with no improvement of symptoms. Daughter st ates patient recently finish antibiotics 2 weeks ago for "chest congestion" as well as a UTI 1 month ago. Daughter denies patient having fever, chills, hemoptysis, dizziness, chest pain, dyspnea, abdominal pain, N/V/D, dysuria (Brett Rojas) - Related Data Home Medications Medication Instructions Recorded Confirmed Aspirin EC [Ecotrin Low Dose] 81 mg PO DAILY@0800 08/21/24 12/14/24 Cyanocobalamin (Vitamin B-12) 1,000 mcg PO DAILY@0800 08/21/24 12/14/24 [Vitamin B-12] metFORMIN HCL 1,000 mg PO BID@0800,1700 08/21/24 12/14/24 Ammonium Lactate Lotion 1 applic TOPICAL BID@799,199911/06/24 12/14/24 [Lac-Hydrin 12% Lotion] Memantine [Namenda] 10 mg PO HS@199911/06/24 12/14/24 Potassium Chloride [Klor-Con M10] 10 meq PO DAILY@0800 11/06/24 12/14/24 QUEtiapine [SEROquel] 50 mg PO DAILY@1700 11/06/24 12/14/24 Azithromycin [Zithromax Z Pack] See Taper PO DIRECTED@79912/14/24 12/14/24 Bumetanide [BUMEX] 1 mg PO DAILY@0812/14/24 12/14/24 Levothyroxine Sodium [Synthroid] 75 mcg PO DAILY@0612/14/24 12/14/24 Magnesium Oxide [Mag-Ox] 400 mg PO DAILY@79912/14/24 12/14/24 Metoprolol Tartrate [Lopressor] 12.5 mg PO BID@08,199912/14/24 12/14/24 QUEtiapine [SEROquel] 100 mg PO HS@199912/14/24 12/14/24 Spironolactone [Aldactone] 12.5 mg PO DAILY@79912/14/24 12/14/24 Previous Rx's Medication Instructions Recorded Levothyroxine Sodium [Synthroid] 50 mcg PO DAILY@06 #30 tab 11/28/24 Cephalexin [Keflex] 500 mg PO TID 7 Days #21 cap 12/20/24 Allergies Allergy/AdvReac Type Severity Reaction Status Date / Time No Known Allergies Allergy Verified 12/20/24 18:51 Review of Systems ROS Other: All systems not noted in ROS Statement are negative. <Sudhir Vergara - Last Filed: 02/25/25 15:00> ROS Other: All systems not noted in ROS Statement are negative. <Brett Rojas - Last Filed: 02/25/25 22:09> ROS Statement: Those systems with pertinent positive or pertinent negative responses have been documented in the HPI. Past Medical History Past Medical History: Atrial Fibrillation, Dementia, Thyroid Disorder History of Any Multi-Drug Resistant Organisms: None Reported Past Surgical History: Appendectomy, Cholecystectomy, Hysterectomy Past Anesthesia/Blood Transfusion Reactions: No Reported Reaction Past Psychological History: No Psychological Hx Reported Smoking Status: Current some day smoker Past Alcohol Use History: None Reported Past Drug Use History: None Reported <Sudhir Vergara - Last Filed: 02/25/25 15:00> General Exam <Sudhir Vergara - Last Filed: 02/25/25 15:00> General appearance: alert, in no apparent distress Head exam: Present: atraumatic, normocephalic, normal inspection Eye exam: Present: normal appearance, PERRL, EOMI. Absent: scleral icterus, conjunctival injection, periorbital swelling ENT exam: Present: normal exam, mucous membranes dry Neck exam: Present: normal inspection. Absent: tenderness, meningismus, lymphadenopathy Respiratory exam: Present: decreased breath sounds. Absent: respiratory distress, wheezes, rales, rhonchi, stridor, accessory muscle use, prolonged expiratory Cardiovascular Exam: Present: regular rate, normal rhythm, normal heart sounds. Absent: systolic murmur, diastolic murmur, rubs, gallop, clicks GI/Abdominal exam: Present: soft, normal bowel sounds. Absent: distended, tenderness, guarding, rebound, rigid Extremities exam: Present: full ROM, normal capillary refill, pedal edema (Positive BLE pitting edema extending to knees). Absent: tenderness, joint swelling, calf tenderness Back exam: Present: normal inspection. Absent: CVA tenderness (R), CVA tenderness (L) Neurological exam: Present: alert, altered (Oriented to location, "1956", unsure of president), CN II-XII intact, other (Stewart stroke test normal) Psychiatric exam: Present: normal affect, normal mood. Absent: agitated Skin exam: Present: warm, dry, intact, normal color. Absent: rash <Brett Rojas - Last Filed: 02/25/25 22:09> - General Exam Comments Initial Comments: Visual Physical Exam Vital signs reviewed General: Well-appearing, nontoxic, no acute distress. Head: Normocephalic, atraumatic Eyes: PERRLA, EOMI ENT: Airway patent Chest: Nonlabored breathing Skin: No visual rash, normal skin tone Neuro: Alert and oriented 3 Musculoskeletal: No gross abnormalities (Sudhir Vergara) Course Vital Signs 02/25/25 02/25/25 14:58 22:04 Temperature 99.4 F Pulse Rate 74 85 Respiratory 16 Rate Blood Pressure 128/70 O2 Sat by Pulse 94 L Oximetry Medical Decision Making <Sudhir Vergara - Last Filed: 02/25/25 15:00> - Lab Data Result diagrams: 02/25/25 15:14 02/25/25 15:14 <Brett Rojas - Last Filed: 02/25/25 22:09> - Medical Decision Making I completed the quick note portion of this chart signed Sudhir Vergara PA-C (Sudhir Vergara) Was pt. sent in by a medical professional or institution (, PA, DECORATING EQUIPMENT SETTER, urgent care, hospital, or halfway...) When possible be specific @ -[No] Did you speak to anyone other than the patient for history (EMS, parent, family, police, friend...)? What history was obtained from this source @ -[No] Did you review nursing and triage notes (agree or disagree)? Why? @ -[I reviewed and agree with nursing and triage notes] Were old charts reviewed (outside hosp., previous admission, EMS record, old EKG, old radiological studies, urgent care reports/EKG's, halfway records)? Report findings @ -[No old charts were reviewed] Differential Diagnosis (chest pain, altered mental status, abdominal pain women, abdominal pain men, vaginal bleeding, weakness, fever, dyspnea, syncope, headache, dizziness, GI bleed, back pain, seizure, CVA, palpatations, mental health, musculoskeletal)? @ -Differential Altered Mental Status: Hypoglycemia, DKA, hypercapnia, ETOH, overdose, CO poisoning, trauma, myxedema coma, HTN encephalopathy, infection, encephalitis, psychosis, intercranial hemorrhage, hepatic encephalopathy, meningitis, CVA, this is not meant to be an all-inclusive list EKG interpreted by me (3pts min.). @ -[As above] X-rays interpreted by me (1pt min.). @ -[None done] CT interpreted by me (1pt min.). @ -[None done] U/S interpreted by me (1pt. min.). @ -[None done] What testing was considered but not performed or refused? (CT, X-rays, U/S, labs)? Why? @ -[None] What meds were considered but not given or refused? Why? @ -[None] Did you discuss the management of the patient with other professionals (professionals i.e. , PA, DECORATING EQUIPMENT SETTER, lab, RT, psych nurse, social secretary, national park tour guide, teacher, information assurance officer, case advocate)? Give summary @ -[No] Was smoking cessation discussed for >3mins.? @ -[No] Was critical care preformed (if so, how long)? @ -[No] Were there social determinants of health that impacted care today? How? (Homelessness, low income, unemployed, alcoholism, drug addiction, transportation, low edu. Level, literacy, decrease access to med. care, usp, rehab)? @ -[No] Was there de-escalation of care discussed even if they declined (Discuss DNR or withdrawal of care, Hospice)? DNR status @ -[No] What co-morbidities impacted this encounter? (DM, HTN, Smoking, COPD, CAD, Cancer, CVA, ARF, Chemo, Hep., AIDS, mental health diagnosis, sleep apnea, morbid obesity)? @ -Dementia, COPD Was patient admitted / discharged? Hospital course, mention meds given and route, prescriptions, significant lab abnormalities, going to OR and other pertinent info. @ -[hospital course] Undiagnosed new problem with uncertain prognosis? @ -[No] Drug Therapy requiring intensive monitoring for toxicity (Heparin, Nitro, Insulin, Cardizem)? @ -[No] Were any procedures done? @ -[No] Diagnosis/symptom? @ -Pneumonia, altered mental status Acute, or Chronic, or Acute on Chronic? @ -Acute on chronic Uncomplicated (without systemic symptoms) or Complicated (systemic symptoms)? @ -Complicated Side effects of treatment? @ -[No] Exacerbation, Progression, or Severe Exacerbation? @ -[No] Poses a threat to life or bodily function? How? (Chest pain, [place], PR, pneumonia, PE, COPD, DKA, ARF, appy, cholecystitis, CVA, Diverticulitis, Homicidal, Suicidal, threat to staff... and all critical care pts) @ -[No] (Brett Rojas) - Lab Data Lab Results 02/25/25 02/25/25 02/25/25 Range/Units 15:14 15:14 15:14 WBC 8.97 (4.50-10.00) 10*3/uL RBC 3.68 L (4.10-5.20) 10*6/uL Hgb 11.4 L (12.0-15.0) g/dL Hct 35.2 L (37.2-46.3) % MCV 95.7 (80.0-97.0) fL MCH 31.0 (27.0-32.0) pg MCHC 32.4 (32.0-37.0) g/dL Plt Count 220 (140-440) 10*3/uL MPV 9.5 (9.5-12.2) fL Immature Gran % (Auto) 0.1 % Neutrophils % 80.9 % Lymphocytes % 8.0 % Monocytes % 9.5 % Eosinophils % 1.1 % Basophils % 0.4 % Immature Gran # 0.01 (0.00-0.04) 10*3/uL Neutrophils # 7.25 (1.80-7.70) 10*3/uL Lymphocytes # 0.72 L (0.90-5.00) 10*3/uL Monocytes # 0.85 (0.20-1.00) 10*3/uL Eosinophils # 0.10 (0.04-0.35) 10*3/uL Basophils # 0.04 (0.00-0.10) 10*3/uL PT 11.2 (10.0-12.5) sec INR 1.0 (<1.2) APTT 26.5 (22.0-30.0) sec Sodium 138 (137-145) mmol/L Potassium 4.3 (3.5-5.1) mmol/L Chloride 94 L (98-107) mmol/L Carbon Dioxide 32 H (22-30) mmol/L Anion Gap 12 mmol/L BUN 41 H (7-17) mg/dL Creatinine 1.00 (0.52-1.04) mg/dL Est GFR (CKD-EPI)AfAm 59 (>60 ml/min/1.73 sqM) Est GFR (CKD-EPI)NonAf 51 (>60 ml/min/1.73 sqM) Glucose 166 H (74-99) mg/dL Calcium 8.7 (8.4-10.2) mg/dL Total Bilirubin 0.6 (0.2-1.3) mg/dL AST 61 H (14-36) U/L ALT 69 H (4-34) U/L Alkaline Phosphatase 91 (38-126) U/L Troponin I (0.000-0.034) ng/mL Total Protein 7.5 (6.3-8.2) g/dL Albumin 4.4 (3.5-5.0) g/dL 02/25/25 Range/Units 15:14 WBC (4.50-10.00) 10*3/uL RBC (4.10-5.20) 10*6/uL Hgb (12.0-15.0) g/dL Hct (37.2-46.3) % MCV (80.0-97.0) fL MCH (27.0-32.0) pg MCHC (32.0-37.0) g/dL Plt Count (140-440) 10*3/uL MPV (9.5-12.2) fL Immature Gran % (Auto) % Neutrophils % % Lymphocytes % % Monocytes % % Eosinophils % % Basophils % % Immature Gran # (0.00-0.04) 10*3/uL Neutrophils # (1.80-7.70) 10*3/uL Lymphocytes # (0.90-5.00) 10*3/uL Monocytes # (0.20-1.00) 10*3/uL Eosinophils # (0.04-0.35) 10*3/uL Basophils # (0.00-0.10) 10*3/uL PT (10.0-12.5) sec INR (<1.2) APTT (22.0-30.0) sec Sodium (137-145) mmol/L Potassium (3.5-5.1) mmol/L Chloride (98-107) mmol/L Carbon Dioxide (22-30) mmol/L Anion Gap mmol/L BUN (7-17) mg/dL Creatinine (0.52-1.04) mg/dL Est GFR (CKD-EPI)AfAm (>60 ml/min/1.73 sqM) Est GFR (CKD-EPI)NonAf (>60 ml/min/1.73 sqM) Glucose (74-99) mg/dL Calcium (8.4-10.2) mg/dL Total Bilirubin (0.2-1.3) mg/dL AST (14-36) U/L ALT (4-34) U/L Alkaline Phosphatase (38-126) U/L Troponin I <0.012 (0.000-0.034) ng/mL Total Protein (6.3-8.2) g/dL Albumin (3.5-5.0) g/dL Disposition <Sudhir Vergara - Last Filed: 02/25/25 15:00> Time of Disposition: 22:09 Decision Date: 02/25/25 Decision Time: 22:09 <Brett Rojas - Last Filed: 02/25/25 22:09> Clinical Impression: Pneumonia, Altered mental status Disposition: ADMITTED IP TO THIS HOSP Condition: Fair Referrals: Davin Tarango MD [Primary Care Provider] - 1-2 days
[2025-02-25 15:30] LABS: Basophils # (A) 0.04 10*3/uL (0.00-0.10); Basophils % (A) 0.4 %; Eosinophils % (A) 1.1 %; HCT 35.2 % (37.2-46.3); HGB 11.4 g/dL (12.0-15.0); Lymphocytes # (A) 0.72 10*3/uL (0.90-5.00); MCHC 32.4 g/dL (32.0-37.0); MCV 95.7 fL (80.0-97.0); Mean Platelet Volume 9.5 fL (9.5-12.2); Monocytes # (A) 0.85 10*3/uL (0.20-1.00); Monocytes % (A) 9.5 %; Neutrophils # (A) 7.25 10*3/uL (1.80-7.70); Neutrophils % (A) 80.9 %; Platelet Count 220 10*3/uL (140-440); RBC 3.68 10*6/uL (4.10-5.20); RDW 16.7 % (11.5-14.5); WBC 8.97 10*3/uL (4.50-10.00)
--- NOTE | 2025-02-25 15:39 | CT ---
EXAMINATION TYPE: CT brain wo con CT DLP: 1147.2 mGycm, Automated exposure control for dose reduction was used. DATE OF EXAM: 02/25/2025 3:33 PM COMPARISON: CT brain C-spine 11/06/2024 CLINICAL INDICATION:Female, 85 years old with history of Altered mental status, ams, confusion TECHNIQUE: Brain: Multiple axial CT images of the brain were obtained without IV contrast. . Coronal and sagitta l reformats reviewed. FINDINGS: Brain: Extra-axial spaces: No abnormal extra-axial fluid collections. Multiple tiny falx lipomas. Ventricular system: Within normal limits Cerebral parenchyma: Cerebral atrophy. No acute intraparenchymal hemorrhage or mass effect. The dawn -white junction is well differentiated. Scattered hypoattenuating areas are seen within the periventr icular white matter. Cerebellum: Unremarkable. Mass effect: No evidence of midline shift. Intracranial vasculature: Atherosclerotic calcifications of the intracranial vessels. Soft tissues: Normal. Calvarium/osseous structures: No depressed skull fracture. Paranasal sinuses and mastoid air cells: Mastoid air cells are clear. Minimal mucosal thickening in t he ethmoid sinuses. The remaining paranasal sinuses are clear. Visualized orbits: Senile calcific scleral plaques are present. Bilateral aphakia. IMPRESSION: 1. No acute intracranial process. 2. Advanced cerebral atrophy with mild nonspecific white matter changes, likely secondary to chronic small vessel ischemic disease. [facility], , 02/25/2025 3:37 PM
[2025-02-25 15:43] LABS: ALT 69 U/L (4-34); AST 61 U/L (14-36); African American GFR (CKD) 59 (>60 ml/min/1.73 sqM); Albumin 4.4 g/dL (3.5-5.0); Alkaline Phosphatase 91 U/L (38-126); Anion Gap 12 mmol/L; Blood Urea Nitrogen 41 mg/dL (7-17); Calcium 8.7 mg/dL (8.4-10.2); Carbon Dioxide 32 mmol/L (22-30); Chloride 94 mmol/L (98-107); Glucose 166 mg/dL (74-99); Non-African American GFR(CKD) 51 (>60 ml/min/1.73 sqM); Potassium 4.3 mmol/L (3.5-5.1); Sodium 138 mmol/L (137-145); Total Bilirubin 0.6 mg/dL (0.2-1.3); Total Protein 7.5 g/dL (6.3-8.2)
[2025-02-25 15:46] LABS: Partial Thromboplastin Time 26.5 sec (22.0-30.0); Prothrombin Time 11.2 sec (10.0-12.5)
--- NOTE | 2025-02-25 16:07 | XR ---
EXAMINATION TYPE: XR chest 2V DATE OF EXAM: 02/25/2025 3:47 PM COMPARISON: 12/20/2024 CLINICAL INDICATION: Female, 85 years old with history of altered mental status, TECHNIQUE: XR chest 2V view(s) obtained. FINDINGS: The heart size is normal. The pulmonary vasculature is normal. Mild infiltrates in the left diaphragm. Correlate for atelectasis or pneumonia. Some minimal subsegme ntal atelectasis is likely at the right lung base. There is fullness in the right hilar region which appears to be a change from recent comparison of . Follow-up is recommended.. IMPRESSION: 1. Bibasilar infiltrates likely on the basis of subsegmental atelectasis. 2. Some fullness of the right hilum. Follow-up is recommended [facility], , 02/25/2025 4:05 PM
[2025-02-25] MEDS: ACETAMINOPHEN TAB 500 MG TAB PO STA (21:42)
[2025-02-25] MEDS: SODIUM CHLORIDE 0.9% 1,000 ML IV STA (21:44)
[2025-02-25] MEDS: IPRATROPIUM-ALBUTEROL 3 ML NEB INHALATION STA (22:04)
[2025-02-25 22:17] LABS: C Reactive Protein 1.9 mg/dL (<1.0)
[2025-02-25] MEDS ORDERED: ACETAMINOPHEN TAB 325 MG TAB PO PRN (22:18)
[2025-02-25] MEDS ORDERED: ONDANSETRON 4 MG/2 ML VIAL IVP PRN (22:18)
[2025-02-25] MEDS ORDERED: NALOXONE 0.4 MG/ML 1 ML VIAL IV PRN (22:18)
[2025-02-25] MEDS ORDERED: LORazepam 1 MG/0.5 ML VIAL IV PRN (22:22)
[2025-02-25 22:45] LABS: Influenza A Not Detected (Not Detectd); Influenza B Not Detected (Not Detectd); RSV Not Detected (Not Detectd)
[2025-02-25] MEDS: SODIUM CHLORIDE 0.9% 1,000 ML IV SCH (22:46)
[2025-02-25] MEDS: LACTATED RINGERS 1,000 ML IV ONE (22:58)
[2025-02-26 03:08] LABS: Appearance,Urine Clear (Clear); Bacteria,Urine Many /hpf; Bilirubin,Urine Negative (Negative); Blood,Urine Negative (Negative); Color,Urine Colorless; Glucose,Urine (UA) Negative (Negative); Hyaline Casts,Urine 9 /lpf (0-2); Ketones,Urine Negative (Negative); Leukocyte Esterase,Urine Small (Negative); Nitrite,Urine Negative (Negative); Protein,Urine Negative (Negative); Specific Gravity,Urine 1.012 (1.001-1.035); Squamous Epithelial Cell,Urine 1 /hpf (0-4); Urobilinogen,Urine <2.0 mg/dL (<2.0); WBC,Urine 10 /hpf (0-5)
[2025-02-26] MEDS: LEVOTHYROXINE 50 MCG TAB PO SCH (06:59)
[2025-02-26] MEDS: METOPROLOL TARTRATE 25 MG TAB PO SCH (08:34)
[2025-02-26] MEDS: metFORMIN 500 MG TAB PO SCH (08:35)
[2025-02-26] MEDS: MAGNESIUM OXIDE 400 MG TAB PO SCH (08:36)
[2025-02-26] MEDS: SPIRONOLACTONE 25 MG TAB PO SCH (08:36)
[2025-02-26] MEDS: ASPIRIN 81 MG PO SCH (08:36)
[2025-02-26] MEDS: POTASSIUM CHLORIDE ER 10 MEQ TAB.ER.PRT PO SCH (08:37)
[2025-02-26] MEDS: BUMETANIDE 1 MG TAB PO SCH (10:06)
[2025-02-26] MEDS: AZITHROMYCIN 500 MG TAB PO SCH (11:48)
[2025-02-26] MEDS ORDERED: QUEtiapine 25 MG TAB PO PRN (14:41)
[2025-02-26 15:08] VITALS: BP 93/58; PULSE 69; RESP 19; TEMP 98.1
[2025-02-26] MEDS ORDERED: MEMANTINE 10 MG TAB PO SCH (20:00)
--- NOTE | 2025-02-27 01:48 | P.HPIM ---
History of Present Illness Please consider this note as combined H&P and discharge summary Hospital course: This is a pleasant 85 years old female with past medical history of multiple medical problems as below She has significant history of dementia she presents because of getting very too much agitation more than usual. Patient herself cannot remember the story She herself she knows in the hospital she was not sure about the date exactly however she is pleasant and calm and follow commands. She denies any specific complaint no chest pain or dyspnea she coughs little bit here and there but no significantly no dysuria or urgency no abdominal pain vomiting diarrhea or headache or dizziness or weakness or numbness. Denies no smoking alcohol or illicit drugs. Patient is afebrile rest of vital stable, CBC is normal, WBC is normal. Hemoglobin slightly low at 11.4. BMP and LFT are reviewed, BMP is normal while LFT mildly elevated. INR and troponin were unremarkable Creatinine 1.0, procalcitonin is negative less than 0.02 lactic acid is normal proBNP is 126 Chest x-ray bibasilar infiltrates favoring atelectasis per radiologist CT of the brain showing no acute process but there is advanced atrophy Also breathing is quiet and nonlabored. No diarrhea no rash no headache or dizziness. Therefore the suspicion of infection is low although patient received 1 dose of IV antibiotics in emergency room we do not feel she needs more antibiotics currently have more risk than benefit Review of Systems Review of systems CONSTITUTIONAL: No fever, no malaise, no fatigue. HEENT: No recent visual problems or hearing problems. Denied any sore throat. CARDIOVASCULAR: No orthopnea, PND, no palpitations, no syncope. PULMONARY: No shortness of breath, no cough, no hemoptysis. GASTROINTESTINAL: No diarrhea, no nausea, no vomiting, no abdominal pain. Normoactive bowel sounds. NEUROLOGICAL: No headaches, no weakness, no numbness. HEMATOLOGICAL: Denies any bleeding or petechiae. GENITOURINARY: Denies any burning micturition, frequency, or urgency. MUSCULOSKELETAL/RHEUMATOLOGICAL: Denies any joint pain, swelling, or any muscle pain. ENDOCRINE: Denies any polyuria or polydipsia. Past Medical History Past Medical History: Atrial Fibrillation, Dementia, Diabetes Mellitus, Thyroid Disorder History of Any Multi-Drug Resistant Organisms: None Reported Past Surgical History: Appendectomy, Cholecystectomy, Hysterectomy Additional Past Surgical History / Comment(s): thyroid removed Past Anesthesia/Blood Transfusion Reactions: No Reported Reaction Past Psychological History: No Psychological Hx Reported Smoking Status: Current some day smoker Past Alcohol Use History: None Reported Past Drug Use History: None Reported Medications and Allergies Home Medications Medication Instructions Recorded Confirmed Type Aspirin EC [Ecotrin Low Dose] 81 mg PO DAILY 08/21/24 02/26/25 History Cyanocobalamin (Vitamin B-12) 1,000 mcg PO DAILY 08/21/24 02/26/25 History [Vitamin B-12] metFORMIN HCL 1,000 mg PO BID-W/MEALS 08/21/24 02/26/25 History Memantine [Namenda] 10 mg PO BID 11/06/24 02/26/25 History Potassium Chloride [Klor-Con M10] 10 meq PO DAILY 11/06/24 02/26/25 History Levothyroxine Sodium [Synthroid] 50 mcg PO DAILY@0630 #30 tab 11/28/24 02/26/25 Rx Bumetanide [BUMEX] 1 mg PO BID 12/14/24 02/26/25 History Magnesium Oxide [Mag-Ox] 400 mg PO DAILY 12/14/24 02/26/25 History QUEtiapine [SEROquel] 100 mg PO HS 12/14/24 02/26/25 History Spironolactone [Aldactone] 12.5 mg PO DAILY 12/14/24 02/26/25 History Atorvastatin [Lipitor] 40 mg PO DAILY 02/26/25 02/26/25 History LORazepam [Ativan] 0.5 mg PO TID PRN 02/26/25 02/26/25 History Latanoprost [Latanoprost 0.005%] 1 drop RIGHT EYE HS 02/26/25 02/26/25 History Metoprolol Tartrate [Lopressor] 12.5 mg PO BID@0800,2000 #15 tab 02/26/25 Rx QUEtiapine FUMARATE [SEROquel] 25 mg PO BID PRN #60 tablet 02/26/25 Rx rOPINIRole HCL [Requip] 0.25 mg PO BID 02/26/25 02/26/25 History Allergies Allergy/AdvReac Type Severity Reaction Status Date / Time No Known Allergies Allergy Verified 02/26/25 10:46 Physical Exam Vitals: Vital Signs Temp Pulse Pulse Resp BP BP Pulse Ox 02/26/25 07:19 98.7 F 76 18 109/63 94 L 02/26/25 03:41 98.1 F 87 18 159/76 93 L 02/26/25 03:06 98.7 F 71 16 114/84 96 02/26/25 02:00 77 16 122/62 94 L 02/26/25 01:00 73 16 113/61 93 L 02/26/25 00:00 73 16 99/63 92 L 02/25/25 23:00 73 16 96/58 97 02/25/25 22:47 99.4 F 02/25/25 22:41 91 L 02/25/25 22:40 73 16 83/46 87 L 02/25/25 22:13 87 02/25/25 22:04 85 02/25/25 21:54 74 16 104/53 93 L 02/25/25 14:58 99.4 F 74 16 128/70 94 L Intake and Output 02/25/25 02/26/25 02/26/25 22:59 06:59 14:59 Other: # Voids 1 Weight 70.76 kg -GENERAL: The patient is alert and oriented x2-3 partially, not in any acute distress. Well developed, well nourished. She is calm and pleasant HEENT: Pupils are round and equally reacting to light. EOMI. No scleral icterus. No conjunctival pallor. Normocephalic, atraumatic. No pharyngeal erythema. No thyromegaly. CARDIOVASCULAR: S1 and S2 present. No murmurs, rubs, or gallops. PULMONARY: Chest is clear to auscultation, no wheezing , no crackles. ABDOMEN: Soft, nontender, nondistended, normoactive bowel sounds. No palpable organomegaly. MUSCULOSKELETAL: No joint swelling or deformity. EXTREMITIES: No cyanosis, clubbing, or pedal edema. NEUROLOGICAL: Gross neurological examination did not reveal any focal deficits. SKIN: No rashes. no petechiae. Results CBC & Chem 7: 02/25/25 15:14 02/25/25 15:14 Labs: Abnormal Lab Results - Last 24 Hours (Table) 02/25/25 02/25/25 02/25/25 Range/Units 15:14 15:14 15:14 RBC 3.68 L (4.10-5.20) 10*6/uL Hgb 11.4 L (12.0-15.0) g/dL Hct 35.2 L (37.2-46.3) % Lymphocytes # 0.72 L (0.90-5.00) 10*3/uL Chloride 94 L (98-107) mmol/L Carbon Dioxide 32 H (22-30) mmol/L BUN 41 H (7-17) mg/dL Glucose 166 H (74-99) mg/dL AST 61 H (14-36) U/L ALT 69 H (4-34) U/L C-Reactive Protein 1.9 H (<1.0) mg/dL Ur Leukocyte Esterase (Negative) Urine WBC (0-5) /hpf Urine Bacteria (None) /hpf Hyaline Casts (0-2) /lpf 02/26/25 Range/Units 02:33 RBC (4.10-5.20) 10*6/uL Hgb (12.0-15.0) g/dL Hct (37.2-46.3) % Lymphocytes # (0.90-5.00) 10*3/uL Chloride (98-107) mmol/L Carbon Dioxide (22-30) mmol/L BUN (7-17) mg/dL Glucose (74-99) mg/dL AST (14-36) U/L ALT (4-34) U/L C-Reactive Protein (<1.0) mg/dL Ur Leukocyte Esterase Small H (Negative) Urine WBC 10 H (0-5) /hpf Urine Bacteria Many H (None) /hpf Hyaline Casts 9 H (0-2) /lpf Assessment and Plan Assessment: Assessment: Alzheimer dementia with behavioral disturbance, mild and improved No strong evidence of infection no fever or leukocytosis her urinalysis was slightly abnormal but patient denies any other urinary symptoms no dysuria urgency or suprapubic tenderness Hypertension Hyperlipidemia Diabetes mellitus Paroxysmal atrial fibrillation Plan: Plan: Patient agitation could be part of her progressive dementia. Patient already on Seroquel 100 mg at bedtime we are going to add Seroquel 25 mg twice daily as needed Daughter came to the hospital and she felt comfortable taking her mother back to home. No need for antibiotics No further workup indicated inpatient Patient is medically stable for discharge in guarded prognosis with recommendation for close outpatient follow-up as below in the discharge instructions
== END 2025-02-26 16:28 | disposition home health service (06) | DRG 57 ==
LOC: EC 14:33 → 4SSUR 02-26 02:26
PROVIDERS: ADMIT Hospitalist; ATTEND Hospitalist
DX: G30.9 Alzheimer's disease, unspecified (principal); F02.A11 Dementia in other diseases classified elsewhere, mild, with agitation; J44.9 Chronic obstructive pulmonary disease, unspecified; E11.9 Type 2 diabetes mellitus without complications; I10 Essential (primary) hypertension; E89.0 Postprocedural hypothyroidism; J98.11 Atelectasis; I48.0 Paroxysmal atrial fibrillation; R82.90 Unspecified abnormal findings in urine; E78.5 Hyperlipidemia, unspecified; F17.200 Nicotine dependence, unspecified, uncomplicated; Z79.899 Other long term (current) drug therapy; Z79.890 Hormone replacement therapy; Z79.84 Long term (current) use of oral hypoglycemic drugs; Z79.82 Long term (current) use of aspirin; Z87.440 Personal history of urinary (tract) infections
CPT/HCPCS: 36415; 70450; 71046; 80053; 81001; 83605; 83880; 84145; 84484; 85025; 85610; 85730; 86140; 87077; 87086; 87186; 87636; 93005; 94640; 96361; 96365; 99285